=== PATIENT | female | born 1945 | race Caucasian/White ===

== ENCOUNTER 2022-07-15 16:34 | Observation (INO) | payer MEDICARE, SELFPAY ==
[2022-07-15] VITALS (23 sets, daily range): BP systolic 123–173; BP diastolic 75–99; PULSE 65–87; RESP 11–25; TEMP 36.5–36.8; O2SAT 97–99; BMI 30.4
--- NOTE | ~2022-07-15 | CT_ITS ---
EXAMINATION: CT brain wo con DATE: 07/15/2022 17:18 INDICATION: Slurred speech, moderate weakness, headache, dizziness and right leg and arm numbness. TECHNIQUE: Computed tomography (CT) of the head was performed without intravenous contrast. Sagittal and coronal reconstructions were performed. The mA was adjusted according to patient size. Iterative reconstruction technique was employed. The dose-length product was 605.33 mGy-cm. COMPARISON: head CT dated 06/01/2012 FINDINGS: No acute intracranial hemorrhage, acute infarction or abnormal extra axial fluid collection. Unchange d small old lacunar infarct at the right lentiform nucleus. Interval progression of now mild to moder ate scattered white matter hypoattenuation consistent with chronic small vessel ischemic disease. The re is also mild progression in symmetric prominence of the sulci consistent with mild age-appropriate diffuse cerebral volume loss. Ventricles are normal and symmetric. No mass/mass effect. Unchanged ch ronic likely adenoidal calcification at the midline of the posterior nasopharynx. The orbits, paranas al sinuses and mastoid air cells are normal. IMPRESSION: 1. No acute intracranial process. Dr. Vu discussed these findings with Dr. Garcia at 5:30 PM. 2. Small old lacunar infarct at the right lentiform nucleus. 3. Progression of age-related changes including mild diffuse on loss and now mild to moderate scatter ed white matter hypoattenuation consistent with chronic small vessel ischemic disease. Reviewed, dictated and finalized at location A. [facility] IMPRESSION: 1. No acute intracranial process. Dr. Vu discussed these findings with Dr Samra Garcia at 5:30 PM. 2. Small old lacunar infarct at the right lentiform nucleus. 3. Progression of age-related changes including mild diffuse on loss and now mi ld to moderate scattered white matter hypoattenuation consistent with chronic s mall vessel ischemic disease.
--- NOTE | ~2022-07-15 | MR_ITS ---
EXAMINATION: MR brain/brain stem wo/w con DATE: 07/16/2022 07:48 INDICATION: Transient ischemic attack. TECHNIQUE: Magnetic resonance imaging (MRI) of the brain and brainstem was performed without and with 15 mL MultiHance intravenous contrast. COMPARISON: Head CT 07/15/2022 FINDINGS: There is a punctate old microhemorrhage in the right thalamus. There are scattered areas of nonspecific increased T2-weighted signal intensity in the cerebral white matter and chad. There is n o acute ischemic infarct or abnormal mass lesion. The ventricles are normal in size. The paranasal si nuses are clear. The orbits are normal. The mastoid air cells are normal. IMPRESSION: 1. Moderate nonspecific cerebral white matter disease and pontine disease, which likely represents ch ronic small vessel ischemic disease. Reviewed, dictated and finalized at location A. [employer] IMPRESSION: 1. Moderate nonspecific cerebral white matter disease and pontine disease, whic h likely represents chronic small vessel ischemic disease.
--- NOTE | ~2022-07-15 | CT_ITS ---
EXAMINATION: CTA brain carotid DATE: 07/15/2022 18:20 INDICATION: R arm/leg numbness, vertigo, slurred speech TECHNIQUE: Computed tomographic angiography (CTA) of the head and neck was performed with 100 mL Omni paque-350 intravenous contrast. Automated exposure control and iterative reconstruction technique wer e employed. The dose-length product was 956.48 mGy-cm. Maximum intensity projection and volume render ed 3D-reconstructions were created by the technologist on a separate workstation. COMPARISON: CT brain, same date. FINDINGS: CT BRAIN: No acute large vessel infarct, intracranial hemorrhage, mass, or hydrocephalus. Short segment mild st enosis of the proximal basilar artery. Hypoplastic bilateral P1 segments, the majority of the posteri or flow comes from prominent bilateral posterior communicating arteries. CTA HEAD: No large vessel occlusion, aneurysm, high flow vascular malformation, nidus or extravasation. CTA NECK: Aortic arch and proximal great vessels: Mild atherosclerotic calcifications at the visualized aortic arch and proximal great vessels. Right common carotid, carotid bifurcation, and internal carotid artery: No significant plaque or sten osis.There is 0% stenosis of the proximal right internal carotid artery relative to normal distal art taylor lumen diameter (NASCET criteria). Left common carotid, carotid bifurcation, and internal carotid artery: No significant plaque or steno sis.There is 0% stenosis of the proximal left internal carotid artery relative to normal distal arter y lumen diameter (NASCET criteria). Vertebral arteries: No significant plaque or stenosis. Left vertebral artery is dominant. Other findings: Degenerative changes in the cervical spine. Senescent change and dependent atelectasi s in the upper lungs. IMPRESSION: 1. No large vessel occlusion. 2. No significant carotid or vertebral stenosis. Reviewed, dictated and finalized at location K. LOADER
--- NOTE | ~2022-07-15 | XR_ITS ---
EXAMINATION: XR chest 1V portable Exam Date/Time: 07/15/2022 17:50 DEBURRING AND TOOLING MACHINE OPERATOR HISTORY: INT SLURRED SPEECH, MOTOR WEAKNESS, NO CARDIAC HX Comparison: 03/20/2011. RESULT: Lines, tubes, and devices: None. Lungs and pleura: Mild diffuse reticular opacities. Right hemidiaphragm elevation. Cardiomediastinal silhouette: Stable. Other: No acute osseous or upper abdominal finding. IMPRESSION: Mild interstitial edema versus senescent change. Reviewed, dictated and finalized at location K. RRING AND TOOLING MACHINE OPERATOR
--- NOTE | 2022-07-15 17:07 | ECG_ITS ---
Measurements Intervals [place] Rate: 68 P: 73 MA: 151 QRS: 15 QRSD: 132 T: 8 QT: 385 QTc: 412 Interpretive Statements SINUS RHYTHM RIGHT BUNDLE BRANCH BLOCK CONSIDER INFERIOR INFARCT, AGE INDETERMINATE BASELINE ARTIFACT- I, II, AVR, AVL, AVF, V1 ABNORMAL ECG NO PREVIOUS ECG AVAILABLE FOR COMPARISON Electronically Signed On 07-15-2022 20:52:35 MYSQL DATABASE ADMINISTRATOR by Placido Nava D.O.
[2022-07-15 17:39] LABS: Glucose Point of Care 121 mg/dl (65-105)
[2022-07-15 17:43] LABS: Basophils Percent Auto 0.4 % (0.2-1.2); Eosinophils Absolute Auto 0.2 K/mm3 (0-0.3); Eosinophils Percent Auto 2.3 % (0-4.4); Hematocrit 39.7 % (37.0-47.0); Hemoglobin 13.1 g/dL (12.0-15.0); Immature Granulocyte Absolute 0.02 K/mm3 (0.00-0.031); Immature Granulocyte Percent A 0.3 % (0-0.5); Lymphocytes Absolute Auto 2.19 K/mm3 (0.9-3.2); Lymphocytes Percent Auto 31.2 % (18.3-44.2); Mean Corpuscular Hemoglobin 30.5 pg (26-34); Mean Corpuscular Volume 92.5 fl (80-100); Mean Platelet Volume 9.7 fl (7.4-10.4); Monocytes Absolute Auto 0.7 K/mm3 (0.1-0.6); Monocytes Percent Auto 9.3 % (2.6-8.5); Neutrophils Percent Auto 56.5 % (45.5-73.1); Platelet Count Result 274 k/mm3 (150-375); Red Blood Count 4.29 M/mm3 (4.2-5.4); Red Cell Distribution Width 13.1 % (11.5-14.5)
--- NOTE | 2022-07-15 17:49 | ED.NEUROSD ---
HPI - Neuro Symptoms/Deficit General Chief Complaint: Neuro Symptoms/Deficit Stated Complaint: INT SLURRED SPEECH AND EXT WEAKNESS TD Time Seen by Provider: 07/15/22 17:15 History of Present Illness HPI Narrative: Patient is a 76-year-old female with a history of GERD presenting with vertigo and right arm numbness. Patient states that she was out running errands when she developed severe vertigo associated with slurred speech. States that her right arm also felt heavy and weak at this time. This lasted for about a minute and then resolved. She was able to return to her errands but then she again had an episode of slurred speech with right arm and leg numbness and weakness. She was driving at this time and she was able to pull into a parking lot. States that this also resolved after about a minute. She called her family who told her to come to the ER for further evaluation. She states that she had another episode of vertigo here. She currently denies any complaints. States that she feels back to baseline. She denies any current numbness or weakness. No slurred speech. She denies any pain whatsoever. Related Data Home Medications Medication Instructions Recorded Confirmed esomeprazole magnesium 20 mg 20 mg PO DAILY 07/15/22 07/15/22 capsule,delayed release (Nexium) venlafaxine 75 mg capsule,extended 75 mg PO DAILY 07/16/22 07/16/22 release 24 hr Allergies Allergy/AdvReac Type Severity Reaction Status Date / Time albuterol Allergy Unknown Other Verified 07/15/22 17:49 Review of Systems Review of Systems: All systems reviewed & are unremarkable except as noted in HPI and below PMFSH Family History Family History Mother Hypertension Sibling Hypertension Family history of malignant neoplasm of ovary Father Family history of heart disease in male family member before age 55 Social History Social History Smoking status: Never smoker Second hand tobacco smoke exposure: No Alcohol intake: never Substance use: never Substance use type: does not use Lack of Transportation: No Lack of Food: Never True Current Housing: I Have Housing Concerned About Future Housing: No Difficulty Paying Gas/Electric Bills: No Difficulty Paying for Meds: No Currently Unemployed: No Education: High School Diploma/GED Difficulty w/ Childcare or Family Care: No Spiritual care concerns: No Exam Narrative: GENERAL: Well-appearing, well-nourished, and in no acute distress. HEAD: Normocephalic, atraumatic. EYES: PERRLA and EOMI. ENT: Nares clear, no rhinorrhea or epistaxis. Mucous membranes moist. NECK: Supple. CHEST: Clear to auscultation. No respiratory distress. HEART: Regular rate and rhythm. No murmur heard. Normal peripheral pulses. ABDOMEN: Soft, nontender, nondistended, normal active bowel sounds. EXTREMITIES: Normal range of motion. No edema. SKIN: Warm, dry, no rash. NEURO: No focal deficits. Alert and oriented x3. No pronator drift, [id number] intact, no facial droop, 5 out of 5 strength in all extremities, no sensory deficits PSYCH: Normal mood and affect. Course Vital Signs Vital signs: Vital Signs Temperature 98.2 F 07/15/22 16:57 Pulse Rate 87 07/15/22 16:57 Respiratory Rate 18 07/15/22 16:57 Blood Pressure 150/99 H 07/15/22 16:57 Pulse Oximetry 99 07/15/22 16:57 Oxygen Delivery Room Air 07/15/22 16:57 Temperature 96.7 F L 07/16/22 06:00 Pulse Rate 62 07/16/22 06:00 Respiratory Rate 18 07/16/22 06:00 Blood Pressure 154/89 H 07/16/22 06:00 Pulse Oximetry 96 07/16/22 11:02 Oxygen Delivery Room Air 07/16/22 11:02 MDM - Neuro Symptoms/Deficit MDM Narrative Medical decision making narrative: Patient is a 76-year-old female presenting with intermittent vertigo, right arm and leg numbness and weakness, slurred speech.
[2022-07-15 17:56] LABS: Prothrombin Time 12.6 Seconds (11.1-14.7)
[2022-07-15 17:57] LABS: Partial Thromboplastin Time 26.2 SECONDS (22.3-36.8)
[2022-07-15 17:59] LABS: Alanine Aminotransferase 20 U/L (6-35); Albumin Level 4.3 g/dL (3.5-5.1); Alkaline Phosphatase 80 U/L (38-126); Anion Gap 8 mmol/L (8-16); Aspartate Amino Transferase 26 U/L (14-36); Bilirubin,Total 0.4 mg/dL (0.2-1.3); Blood Urea Nitrogen 19 mg/dL (7-17); Calcium 8.8 mg/dL (8.4-10.2); Carbon Dioxide 25 mmol/L (22-30); Chloride 108 mmol/L (98-107); Estimated Glomerular Filt Rate > 60; Glucose 120 mg/dL (65-110); Potassium 3.9 mmol/L (3.4-5.0); Sodium 141 mmol/L (137-145)
[2022-07-15 18:12] LABS: Troponin I < 0.012 ng/mL (0.000-0.034)
[2022-07-15] MEDS: ASPIRIN 81 MG CHEWABLE TABLET 324 MG PO (18:19)
--- NOTE | 2022-07-15 19:30 | PC.NURSE ---
assumed care. pt sitting up on side of bed. denies any numbness/tingling at this time. pt A&Ox4 with no complaints.
[2022-07-15] MEDS: CLOPIDOGREL BISULFATE 75 MG TABLET PO (19:36)
--- NOTE | 2022-07-15 19:53 | PM.IMHP ---
H&P: HPI History of Present Illness Date/Time: 07/15/22 19:53 Chief Complaint: Speech disturbance Narrative: This is a 76-year-old female with known significant past medical history presents today to the emergency room after having episode of speech disturbance with right-sided hemibody weakness. Had 2 different episodes that lasted briefly and resolved on its own. Above-mentioned episodes happened while patient was driving. Patient has been in her usual state of health up until this moment denies any headaches, vision changes, fevers, rigors, chills, cough, sputum production, syncope, near syncope, dizziness, vertigo. Preliminary workup has been essentially nonrevealing. Blood pressure upon presentation to the emergency room was 142/86. Preliminary workup was significant for: CT of the head was reported as: FINDINGS: No acute intracranial hemorrhage, acute infarction or abnormal extra axial fluid collection. Unchanged small old lacunar infarct at the right lentiform nucleus. Interval progression of now mild to moderate scattered white matter hypoattenuation consistent with chronic small vessel ischemic disease. There is also mild progression in symmetric prominence of the sulci consistent with mild age-appropriate diffuse cerebral volume loss. Ventricles are normal and symmetric. No mass/mass effect. Unchanged chronic likely adenoidal calcification at the midline of the posterior nasopharynx. The orbits, paranasal sinuses and mastoid air cells are normal. IMPRESSION: 1. No acute intracranial process. Dr. Vu discussed these findings with Dr. Garcia at 5:30 PM. 2. Small old lacunar infarct at the right lentiform nucleus. 3. Progression of age-related changes including mild diffuse on loss and now mild to moderate scattered white matter hypoattenuation consistent with chronic small vessel ischemic disease. Chest x-ray was reported as: IMPRESSION: Mild interstitial edema versus senescent change. CT angiogram of head and neck was reported as: CT BRAIN: No acute large vessel infarct, intracranial hemorrhage, mass, or hydrocephalus. Short segment mild stenosis of the proximal basilar artery. Hypoplastic bilateral P1 segments, the majority of the posterior flow comes from prominent bilateral posterior communicating arteries. CTA HEAD: No large vessel occlusion, aneurysm, high flow vascular malformation, nidus or extravasation. CTA NECK: Aortic arch and proximal great vessels: Mild atherosclerotic calcifications at the visualized aortic arch and proximal great vessels. Right common carotid, carotid bifurcation, and internal carotid artery: No significant plaque or stenosis.There is 0% stenosis of the proximal right internal carotid artery relative to normal distal artery lumen diameter (NASCET criteria).? Left common carotid, carotid bifurcation, and internal carotid artery: No significant plaque or stenosis.There is 0% stenosis of the proximal left internal carotid artery relative to normal distal artery lumen diameter (NASCET criteria). Vertebral arteries: No significant plaque or stenosis. Left vertebral artery is dominant. Other findings: Degenerative changes in the cervical spine. Senescent change and dependent atelectasis in the upper lungs. IMPRESSION: 1. No large vessel occlusion. 2. No significant carotid or vertebral stenosis. Review of Systems Review of Systems: Speech disturbance right hemibody weakness Constitutional: Constitutional: Denies chills, Denies fever(s), Denies malaise, Denies night sweats, Denies poor appetite and Denies weakness Eyes: Eyes: Denies change in vision ENT: Denies dysphagia, Denies vertigo, Denies dizziness, Denies odynophagia and Denies disequilibrium Cardiovascular: Cardiovascular: Denies chest pain, Denies irregular heart rhythm, Denies leg edema, Denies lightheadedness and Denies palpitations Respiratory: Respiratory: Denies chest congestion, Denies cough and Denies dyspnea Gastro
[2022-07-15 20:04] LABS: Influenza A QL RT-PCR Negative (Negative); Influenza B QL RT-PCR Negative (Negative); RSV RNA, RT-PCR Negative (Negative); SARS-CoV-2 RNA PCR Negative
[2022-07-16] VITALS: PULSE 63
--- NOTE | 2022-07-16 | ECHO_ITS ---
Patient Info Name: Rambo Singh Age: 76 years : 1945 Gender: Female Ht: 62 in Wt: 166 lbs BSA: 1.84 m2 HR: 62 bpm BP: 154 / 89 mmHg Heart Rhythm: Sinus Rhythm Technical Quality: Fair Exam Date: 07/16/2022 8:53 AM Exam Location: [facility] Pulmonary Patient Status: Inpatient Admit Date: 07/15/2022 Staff Ordering Physician: Kayode Dawkins Retanned Leather Roller: Lexie Rivero RDCS Attending Provider: Teresita Trent MD Referring Physician: Juancho HASSAN; Exam Type: CA echo doppler w bubble study Study Info Indications - cva like symptoms Complete two-dimensional, color flow and Doppler transthoracic echocardiogram is performed with agitated saline. Contrast/Agitated Saline Contrast/Ag. Saline: Agitated Saline Amount: 20.00 ml Administered By: Lexie Rivero RDCS Existing IV Access: Yes IV Access Condition: patent with no signs of infiltration Summary 1. Left ventricular chamber dimension is normal. 2. Left ventricular systolic function is normal, estimated at 65-70%. 3. There is mildly increased left ventricular wall thickness. 4. The left ventricular diastolic function is grade I diastolic dysfunction. 5. E/e' 11 is mildly elevated. 6. There is mild aortic valve sclerosis. 7. There is trace aortic valve regurgitation. 8. There is trace tricuspid valve regurgitation. 9. No pulmonary hypertension, estimated pulmonary arterial systolic pressure is 25 mmHg. Left Ventricle E/e' 11 is mildly elevated. Left ventricular chamber dimension is normal. Left ventricular systolic function is normal, estimated at 65-70%. There is mildly increased left ventricular wall thickness. The left ventricular diastolic function is grade I diastolic dysfunction. Right Ventricle Right ventricular systolic function is normal and with normal TAPSE 2.2 cm. Right ventricular chamber dimension is normal. Left Atria Left atrial chamber dimension is normal. Right Atria Right atrial chamber dimension is normal. Atrial Septum Agitated saline injection with and without valsalva maneuver opacified right side cardiac chambers without shunt to left side cardiac chambers. Intact interatrial septum visualized by 2D and agitated saline imaging. Aortic Valve The aortic valve is trileaflet. There is mild aortic valve sclerosis. There is no aortic valve stenosis. There is trace aortic valve regurgitation. Pulmonic Valve There is no pulmonic regurgitation. Mitral Valve There is no mitral valve stenosis. There is no mitral valve regurgitation. Tricuspid Valve There is trace tricuspid valve regurgitation. No pulmonary hypertension, estimated pulmonary arterial systolic pressure is 25 mmHg. Pericardium/Pleural There is no pericardial effusion. Inferior Vena Cava Normal inferior vena cava with >50% collapse upon inspiration consistent with normal right atrial pressure, 5 mmHg. Aorta The aortic root size at the sinus of Valsalva is normal. Left Ventricular Outflow Tract Name Value Normal LVOT 2D LVOT Diameter 2.0 cm LVOT Doppler LVOT Pe
[2022-07-16 04:00] VITALS: PULSE 65
[2022-07-16 06:00] VITALS: BP 154/89; PULSE 62; RESP 18; TEMP 35.9; O2SAT 97
--- NOTE | 2022-07-16 08:29 | PM.IMPN ---
Progress Note: A&P Assessment and Plan (1) TIA (transient ischemic attack): Code(s): G45.9 - Transient cerebral ischemic attack, unspecified Status: Acute Assessment and Plan: Presented speech disturbance, right sided weakness, multiple episodes Head Ct No acute intracranial process, old infarct of the right lentiform nucleus, chronic small vessel disease CTA of the head and neck: 0% stenosis of the bilateral carotid bulb, no large vessel occlusion Brain MRI: no acute infarct, consistent small vessel disease Neurology consult Continue aspirin, Plavix, add statin Lipid panel Echo with bubble ordered PT/OT if indicated (2) Hypertension: Code(s): I10 - Essential (primary) hypertension Status: Acute Assessment and Plan: BP is 154/89 Continue amlodipine 5mg PO daily Trend BP adjust therapy as indicated Time Spent With Patient Time with patient: Greater than 35 minutes Subjective Date/time seen: 07/16/22 08:29 Interval history: 07/16/22 07/15/22 This is a 76-year-old female with known significant past medical history presents today to the emergency room after having episode of speech disturbance with right-sided hemibody weakness.? Had 2 different episodes that lasted briefly and resolved on its own.? Above-mentioned episodes happened while patient was driving.? Patient has been in her usual state of health up until this moment denies any headaches, vision changes, fevers, rigors, chills, cough, sputum production, syncope, near syncope, dizziness, vertigo.? Preliminary workup has been essentially nonrevealing.? Blood pressure upon presentation to the emergency room was 142/86. Review of Systems Review of Systems: All systems reviewed & are unremarkable except as noted in HPI and below Exam Narrative: General: well-nourished, well-appearing 76-year-old female, sitting up in bed, comfortable, NARD Neuro: awake, alert and oriented x4, speech clear, no focal neuro deficits noted HEENMT: normocephalic, atraumatic, EOMI, sclerae anicteric, moist oral mucosa Respiratory: Clear to auscultation bilaterally without crackles, rhonchi or wheezes, nonlabored breathing Cardio: regular rate, regular rhythm with S1-S2 Abdomen: nondistended, normoactive bowel sounds, soft, nontender to palpation Extremities: no edema, erythema, or tenderness to palpation, DP pulses 2+ bilaterally Skin: no rashes or lesions, warm and dry Psych: appropriate mood and affect, judgment and insight intact Objective Data Vital Signs Vital Signs: Vital Signs - 24 hr 07/15/22 16:57 07/15/22 17:24 07/15/22 17:34 Temperature 98.2 F Pulse Rate 87 76 Respiratory Rate 18 19 15 Blood Pressure 150/99 H Pulse Oximetry 99 Oxygen Delivery Room Air 07/15/22 17:36 07/15/22 17:40 07/15/22 17:37 Temperature Pulse Rate 75 80 77 Respiratory Rate 25 H 18 Blood Pressure 123/89 Pulse Oximetry Oxygen Delivery 07/15/22 17:45 07/15/22 17:46 07/15/22 18:00 Temperature Pulse Rate 78 82 70 Respiratory Rate 16 18 17 Blood Pressure 151/95 H Pulse Oximetry Oxygen Delivery 07/15/22 18:01 07/15/22 18:02 07/15/22 18:28 Temperature Pulse Rate 69 71 72 Respiratory Rate 11 L 12 14 Blood Pressure 142/86 H Pulse Oximetry Oxygen Delivery 07/15/22 18:32 07/15/22 18:45 07/15/22 18:46 Temperature Pulse Rate 75 68 71 Respiratory Rate 21 H 15 22 H Blood Pressure 170/91 H Pulse Oximetry Oxygen Delivery 07/15/22 20:45 07/15/22 18:47 07/15/22 19:00 Temperature Pulse Rate 65 68 70 Respiratory Rate 16 18 15 Blood Pressure 153/84 H Pulse Oximetry 97 Oxygen Delivery 07/15/22 19:01 07/15/22 19:22 07/15/22 20:17 Temperature Pulse Rate 70 71 Respiratory Rate 17 18 23 H Blood Pressure 164/75 H Pulse Oximetry Oxygen Delivery 07/15/22 20:31 07/15/22 22:00 07/16/22 00:00 Temperature 97.7 F Pu
--- NOTE | 2022-07-16 09:45 | PM.DS ---
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, chronic small vessel disease CTA of the head and neck: 0% stenosis of the bilateral carotid bulb, no large vessel occlusion Brain MRI: no acute infarct, consistent small vessel disease Neurology consult Continue aspirin, Plavix, add statin Lipid panel Echo with bubble ordered PT/OT if indicated (2) Hypertension: Code(s): I10 - Essential (primary) hypertension Status: Acute Assessment and Plan: BP is 154/89 Continue amlodipine 5mg PO daily Trend BP adjust therapy as indicated DS: Summary Hospital Course Hospital Course: Patient is 76-year-old female with a past medical history of GERD and menopause who presented to the ED with complaints of disrupted speech. Patient stated that she had to episodes that resolved within [address] of the head did show an old infarct however nothing acute. CTA showed 0% stenosis bilateral carotid arteries. MRI of the brain did not show any new infarcts however did show an old infarct. Neurology has been consulted. Patient states that she feels back to normal. Echo with bubble study showed Has an EF of 65-70% with grade 1 diastolic dysfunction. Bubble study did not indicate any shunt from my to left.. upon arrival it was noted the patient was hypertensive patient has been started on amlodipine. Patient also was noted to have some small vessel disease which symptoms are probably related to the hypertension. which is most likely related to stress. Patient is very active and does feel very good. Patient is wanting to go home. Patient has been started on Plavix, aspirin, atorvastatin. Patient will need to follow-up with neurology in about 4 Months. Education about discharge has been given to the patient including checking blood pressure twice a day and recording there findings and presented to primary care for further medication adjustments. Patient feels like she is at baseline. Telemetry did not show any changes, Ectopy, ST elevations. Patient stable for discharge per labs and vital signs. Also talked to the patient about diet control including not using salt or eating a lot of high fat diet. Status at Discharge Functional status at discharge: independent ambulation Overall status at discharge: patient is progressing back to baseline Time Spent with Patient Time attestation: Total time spent providing and/or coordinating discharge services: 38 minutes Time spent: Greater than 30 minutes Specific discharge activities: Diagnostic testing, chart review, developing a treatment plan, education, care coordination documentation, physical exam, result review Exam Narrative: General: well-nourished, well-appearing 76-year-old female, sitting up in bed, comfortable, NARD Neuro: awake, alert and oriented x4, speech clear, no focal neuro deficits noted HEENMT: normocephalic, atraumatic, EOMI, sclerae anicteric, moist oral mucosa Respiratory: Clear to auscultation bilaterally without crackles, rhonchi or wheezes, nonlabored breathing Cardio: regular rate, regular rhythm with S1-S2 Abdomen: nondistended, normoactive bowel sounds, soft, nontender to palpation Extremities: no edema, erythema, or tenderness to palpation, DP pulses 2+ bilaterally Skin: no rashes or lesions, warm and dry Psych: appropriate mood and affect, judgment and insight intact DS: Data Data Completed and Pending Labs on day of discharge: Labs from last 24 hours 07/16/22 07/15/22 07/15/22 09:31 19:23 17:37 WBC RBC Hgb
[2022-07-16 09:50] LABS: Cholesterol 260 mg/dL (0-200); HDL Direct 46 mg/dL; Triglycerides 175 mg/dL (<150)
[2022-07-16] MEDS: PANTOPRAZOLE 40 MG TABLET PO (09:51)
[2022-07-16] MEDS: ASPIRIN 81 MG CHEWABLE TABLET PO (09:51)
[2022-07-16] MEDS: CLOPIDOGREL BISULFATE 75 MG TABLET PO (09:51)
[2022-07-16] MEDS: amLODIPine BESYLATE 5 MG TABLET PO (09:51)
[2022-07-16] MEDS: ATORVASTATIN 40 MG TABLET PO (09:53)
[2022-07-16 10:01] LABS: LDL Cholesterol Direct 154 mg/dL
[2022-07-16 11:02] VITALS: O2SAT 96
--- NOTE | 2022-07-16 12:02 | WPDNEURCNPN ---
Assessment and Plan Assessment and plan (1) TIA (transient ischemic attack): Code(s): G45.9 - Transient cerebral ischemic attack, unspecified Status: Acute Plan 1. TIA patient is already on aspirin and Plavix and Plavix can be continued for 6 weeks and then discontinued and stay on aspirin all the pros and cons of the investigations were discussed with her and also with the family member on telephone she is a never smoker or drinker and she is taking atorvastatin 40 mg daily will continue a Consult date: 07/16/22 HPI: Rambo Singh is a 76 year old female admitted to the hospital through the emergency room where she presented with the complaints of slurred speech and extremity weakness in addition to the ongoing history of 1 GERD patient reported that she was out running errands when she developed severe vertigo associated with slurred speech her right upper extremity felt heavy and weak at that time which lasted for about a minute and then resolved she was able to return to her activities but she had another episode of slurred speech along with right upper extremity weakness and the right lower extremity numbness and weakness though at that particular time she was driving she was able to pull into parking lot this also resolved after a minute she called her family who suggested her to come to the emergency room for further evaluation she had another episode of vertigo but by the time she came to the ER was feeling back to normal she has been taking only [place] omeprazole 20 mg daily she is a never smoker she is a currently alcohol intake her initial examination in the emergency room was nonfocal with normal vital signs and blood pressure 150/99 pulse ox 99 on the room air, routine labs for normal seizure although G was negative for influenza a and B an RSV and stars, MRI of the brain documented nonspecific cerebral white matter disease and pontine disease on the basis of small vessel disease and had neck CTA was normal, patient had been started on aspirin 81 mg daily with clopidogrel 75 mg daily Review of Systems Review of Systems: All systems reviewed & are unremarkable except as noted in HPI and below PMFSH Family History Family History Mother Hypertension Sibling Hypertension Family history of malignant neoplasm of ovary Father Family history of heart disease in male family member before age 55 Social History Social History Smoking status: Never smoker Second hand tobacco smoke exposure: No Alcohol intake: never Substance use: never Substance use type: does not use Lack of Transportation: No Lack of Food: Never True Current Housing: I Have Housing Concerned About Future Housing: No Difficulty Paying Gas/Electric Bills: No Difficulty Paying for Meds: No Currently Unemployed: No Education: High School Diploma/GED Difficulty w/ Childcare or Family Care: No Spiritual care concerns: No Meds Home Medications and Allergies Home Medications Medication Instructions Recorded Confirmed Type esomeprazole magnesium 20 mg 20 mg PO DAILY 07/15/22 07/15/22 History capsule,delayed release (Nexium) venlafaxine 75 mg capsule,extended 75 mg PO DAILY 07/16/22 07/16/22 History release 24 hr Allergies Allergy/AdvReac Type Severity Reaction Status Date / Time albuterol Allergy Unknown Other Verified 07/15/22 17:49 Vital Signs Vital Signs - 24 hr 07/15/22 16:57 07/15/22 17:24 07/15/22 17:34 Temperature 36.8 C Pulse Rate 87 76 Respiratory Rate 18 19 15 Blood Pressure 150/99 H Pulse Oximetry 99 Oxygen Delivery Room Air 07/15/22 17:36 07/15/22 17:40 07/15/22 17:37 Temperature Pulse Rate 75 80 77 Respiratory Rate 25 H 18 Blood Pressure 123/89 Pulse Oximetry Oxygen Delivery 07/15/22 17:45 07/15/22 17:46 07/15/22 18:00 Temperature P
[2022-07-16] MEDS: VENLAFAXINE HCL XR 75 MG CAP.ER.24H PO (12:34)
== END 2022-07-16 13:45 | disposition home or self-care (01) ==
LOC: ANHED 17:30 → ANH3MEDSUR 21:33
PROVIDERS: Emergency Medicine; Nurse Practitioner; Admitting Provider Internal Medicine; Emergency Provider Emergency Medicine; PCP Internal Medicine; Visit Provider Chiropractor
DX: G45.9 Transient cerebral ischemic attack, unspecified (principal); I11.9 Hypertensive heart disease without heart failure; R42 Dizziness and giddiness; K21.9 Gastro-esophageal reflux disease without esophagitis; I45.10 Unspecified right bundle-branch block; I08.3 Combined rheumatic disorders of mitral, aortic and tricuspid valves; I27.20 Pulmonary hypertension, unspecified; R94.31 Abnormal electrocardiogram [ECG] [EKG]; R90.82 White matter disease, unspecified; Z20.822 Contact with and (suspected) exposure to COVID-19; Z86.73 Personal history of transient ischemic attack (TIA), and cerebral infarction without residual deficits; Z79.899 Other long term (current) drug therapy
CPT/HCPCS: 36415; 70450; 70496; 70498; 70553; 71045; 80053; 80061; 82948; 84484; 85025; 85610; 85730; 87637; 93005; 93306; 96375; 99285; A9270; A9577; G0378; Q9967

== ENCOUNTER 2022-11-28 17:39 | Emergency (ER) | payer MEDICARE, SELFPAY ==
--- NOTE | ~2022-11-28 | US_ITS ---
EXAMINATION: US venous doppler [facility] DATE: 11/28/2022 20:01 INDICATION: Lower limb edema. TECHNIQUE: Grayscale ultrasound images without and with compression and Doppler ultrasound images of the bilateral lower extremity veins were obtained. COMPARISON: None. FINDINGS: The visualized portions of right common femoral vein, profunda (deep) femoral vein, femoral vein, pop liteal vein, peroneal veins, posterior tibial veins, and greater saphenous vein outflow are patent. The visualized portions of left common femoral vein, profunda femoral vein, femoral vein, popliteal v ein, peroneal veins, posterior tibial veins, and greater saphenous vein outflow are patent. IMPRESSION: 1. No deep venous thrombosis. Reviewed, dictated and finalized at location E.
--- NOTE | ~2022-11-28 | XR_ITS ---
EXAMINATION: XR foot RT min 3V DATE: 11/28/2022 20:12 INDICATION: Lateral right foot pain. TECHNIQUE: 4 views of right foot were obtained. COMPARISON: None. FINDINGS: Bone alignment is normal. There are changes of bunionectomy. There are 2 screws in first me tatarsal and 1 screw in first proximal phalanx. There is heterotopic ossification adjacent to the bas e of first metatarsal. There is moderate osteoarthritis of first metatarsophalangeal joint and mild o steoarthritis of talonavicular joint and some of the interphalangeal joints. There are enthesophytes at the posterior and plantar aspects of calcaneal tuberosity. IMPRESSION: 1. 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 Reviewed, dictated and finalized at location E.
[2022-11-28 17:41] VITALS: BP 136/92; PULSE 78; RESP 18; TEMP 36.5; O2SAT 100
--- NOTE | 2022-11-28 19:37 | ED.EXTPRO ---
HPI - Extremity Problem General Chief complaint: Extremity Problem,Nontraumatic Stated complaint: R foot swelling Time Seen by Provider: 11/28/22 18:43 History of Present Illness HPI Narrative: 77-year-old female presented ED for evaluation of bilateral lower extremity swelling and right foot pain. Patient does have a prior history of TIA and is on Plavix and full dose aspirin. Patient has recently returned from [place] where she was doing a lot of walking. Patient called her primary care physician regarding her bilateral leg swelling and she was referred to the ED for DVT studies. Related Data Home Medications Medication Instructions Recorded Confirmed esomeprazole magnesium 20 mg 20 mg PO DAILY 07/15/22 07/15/22 capsule,delayed release (Nexium) venlafaxine 75 mg capsule,extended 75 mg PO DAILY 07/16/22 07/16/22 release 24 hr Allergies Allergy/AdvReac Type Severity Reaction Status Date / Time albuterol Allergy Unknown Other Verified 11/28/22 17:45 Review of Systems Review of Systems: All systems reviewed & are unremarkable except as noted in HPI and below PMFSH Family History Family History Mother Hypertension Sibling Hypertension Family history of malignant neoplasm of ovary Father Family history of heart disease in male family member before age 55 Social History Social History Smoking status: Never smoker Second hand tobacco smoke exposure: No Alcohol intake: never Substance use: never Substance use type: does not use Lack of Transportation: No Lack of Food: Never True Current Housing: I Have Housing Concerned About Future Housing: No Difficulty Paying Gas/Electric Bills: No Difficulty Paying for Meds: No Currently Unemployed: No Education: High School Diploma/GED Difficulty w/ Childcare or Family Care: No Spiritual care concerns: No Exam Narrative: APPEARANCE: Well appearing, no pain, no distress, well-nourished. HEAD: normocephalic, atraumatic. EYES: PERRLA/EOMI, conjunctivae clear. NOSE: Normal no drainage NECK: Supple. No adenopathy, no masses. RESPIRATORY: Airway patent, respirations nonlabored. Clear to auscultation bilaterally, no rales, rhonchi, wheezing. CARDIOVASCULAR: Regular rate and rhythm without murmurs rubs or gallops. ABDOMINAL: Soft, nontender, nondistended, normal bowel sounds MUSCULOSKELETAL: Moves all extremities. Bilateral lower extremity edema worse on right than left, tenderness to right lateral foot, no ecchymosis or deformity NEURO: Alert. Cranial nerves II through XII intact. Grossly intact SKIN: Warm, dry. Normal Color Course Course Emergency Course: 77-year-old female with bilateral lower extremity pain and right foot pain. X-ray was ordered to evaluate for acute fracture and bilateral ultrasound/DVT studies were ordered. Patient was updated on the plan for work-up. All questions and concerns were addressed. Patient did not have any point tenderness at the site of the avulsion fracture/chronic finding. Patient was updated on results of the ultrasound showing no DVTs. Patient was encouraged to have close follow-up with her primary care physician Vital Signs Vital signs: Vital Signs Temperature 97.7 F 11/28/22 17:41 Pulse Rate 78 11/28/22 17:41 Respiratory Rate 18 11/28/22 17:41 Blood Pressure 136/92 H 11/28/22 17:41 Pulse Oximetry 100 11/28/22 17:41 Oxygen Delivery Room Air 11/28/22 17:41 Temperature 97.7 F 11/28/22 17:41 Pulse Rate 78 11/28/22 17:41 Respiratory Rate 18 11/28/22 17:41 Blood Pressure 136/92 H 11/28/22 17:41 Pulse Oximetry 100 11/28/22 17:41 Oxygen Delivery Room Air 11/28/22 17:41 MDM - Extremity (Nontraumatic) Imaging Data Radiologist's impression: Impressions Venous Doppler Study 11/28/22 20:03 IMPRESSION: 1. No deep venous throm
== END 2022-11-28 21:13 | disposition home or self-care (01) ==
PROVIDERS: Emergency Provider Emergency Medicine; PCP Internal Medicine
DX: R22.43 Localized swelling, mass and lump, lower limb, bilateral (principal); Z86.73 Personal history of transient ischemic attack (TIA), and cerebral infarction without residual deficits; Z79.82 Long term (current) use of aspirin; Z79.02 Long term (current) use of antithrombotics/antiplatelets
CPT/HCPCS: 73630; 93970; 99284

== ENCOUNTER 2023-03-05 15:15 | Outpatient (CLI) | payer MEDICARE, SELFPAY ==
[2023-03-05 15:47] LABS: Basophils Absolute Auto 0.04 K/mm3 (0.00-0.10); Basophils Percent Auto 0.5 % (0.0-1.0); Eosinophils Percent Auto 2.4 % (1.0-6.0); Hematocrit 37.3 % (35.0-42.0); Hemoglobin 12.1 g/dL (11.7-13.8); Immature Granulocyte Absolute 0.02 K/mm3 (0.00-0.00); Immature Granulocyte Percent A 0.2 % (0.0-0.0); Lymphocytes Absolute Auto 4.62 K/mm3 (1.10-4.50); Lymphocytes Percent Auto 55.9 % (18.0-42.0); Mean Corpuscular HGB Conc 32.4 g/dL (32.0-36.0); Mean Corpuscular Hemoglobin 30.4 pg (27.0-31.0); Mean Corpuscular Volume 93.7 fL (78.0-102.0); Mean Platelet Volume 9.8 fl (9.2-11.8); Monocytes Absolute Auto 0.69 K/mm3 (0.10-0.90); Monocytes Percent Auto 8.4 % (2.0-11.0); Neutrophils Absolute Auto 2.7 K/mm3 (1.7-7.2); Neutrophils Percent Auto 32.6 % (50.0-70.0); Platelet Count Result 344 K/mm3 (150-420); Red Blood Count 3.98 M/mm3 (4.20-5.40); Red Cell Distribution Width 13.1 % (11.6-14.4); White Blood Count 8.3 K/mm3 (4.8-10.8)
[2023-03-05 16:48] LABS: Alanine Aminotransferase 73 U/L (14-59); Albumin Level 3.5 g/dL (3.4-5.0); Alkaline Phosphatase 163 U/L (46-116); Anion Gap 8 mmol/L (8-16); Aspartate Amino Transferase 43 U/L (15-37); Bilirubin,Total 0.3 mg/dL (0.00-1.00); Blood Urea Nitrogen 22 mg/dL (7-18); Calcium 9.2 mg/dL (8.5-10.1); Carbon Dioxide 30 mmol/L (21-32); Chloride 107 mmol/L (98-108); Estimated Glomerular Filt Rate > 60; Free T4 Free Thyroxine 1.08 ng/dL (0.76-1.46); Glucose 103 mg/dL (70-99); Osmolality Calculated 303 mOsm/kg (285-295); Potassium 4.4 mmol/L (3.5-5.1); Sodium 145 mmol/L (136-145); Thyroid Stimulating Hormone 1.44 uIU/mL (0.36-3.74); Total Protein 7.2 g/dL (6.4-8.2)
[2023-03-06 09:20] LABS: CRP 0.9 mg/dL (0.0-0.9)
[2023-03-06 09:23] LABS: Monoscreen Positive (Negative); Negative Monotest Control Negative (Negative); Positive Monotest Control Positive (Positive)
[2023-03-11 19:31] LABS: Hepatitis A Antibody IgM Nonreactive; Hepatitis B Core Antibody Nonreactive (Nonreactive); Hepatitis B Surface Antigen Nonreactive (Nonreactive); Hepatitis C Virus Antibody Nonreactive
== END 2023-03-05 15:16 | disposition home or self-care (01) ==
LOC: CHSLAB 15:17
PROVIDERS: PCP Internal Medicine; Visit Provider Nurse Practitioner Family
DX: R07.0 Pain in throat (principal); R74.01 Elevation of levels of liver transaminase levels; R79.9 Abnormal finding of blood chemistry, unspecified; R22.1 Localized swelling, mass and lump, neck; R94.5 Abnormal results of liver function studies
CPT/HCPCS: 36415; 80053; 80074; 84439; 84443; 85025; 86140; 86308

== ENCOUNTER 2023-04-03 12:01 | Outpatient (CLI) | payer MEDICARE, SELFPAY ==
[2023-04-03 12:47] LABS: Basophils Absolute Auto 0.03 K/mm3 (0.00-0.10); Basophils Percent Auto 0.4 % (0.0-1.0); Eosinophils Absolute Auto 0.22 K/mm3 (0.02-0.50); Hematocrit 37.1 % (35.0-42.0); Hemoglobin 12.1 g/dL (11.7-13.8); Immature Granulocyte Absolute 0.02 K/mm3 (0.00-0.00); Immature Granulocyte Percent A 0.3 % (0.0-0.0); Lymphocytes Absolute Auto 2.69 K/mm3 (1.10-4.50); Lymphocytes Percent Auto 37.3 % (18.0-42.0); Mean Corpuscular HGB Conc 32.6 g/dL (32.0-36.0); Mean Corpuscular Hemoglobin 30.3 pg (27.0-31.0); Mean Corpuscular Volume 92.8 fL (78.0-102.0); Monocytes Absolute Auto 0.55 K/mm3 (0.10-0.90); Monocytes Percent Auto 7.6 % (2.0-11.0); Neutrophils Absolute Auto 3.7 K/mm3 (1.7-7.2); Neutrophils Percent Auto 51.4 % (50.0-70.0); Platelet Count Result 302 K/mm3 (150-420); White Blood Count 7.2 K/mm3 (4.8-10.8)
[2023-04-03 14:48] LABS: Alanine Aminotransferase 12 U/L (14-59); Albumin Level 3.5 g/dL (3.4-5.0); Alkaline Phosphatase 104 U/L (46-116); Anion Gap 11 mmol/L (8-16); Aspartate Amino Transferase 18 U/L (15-37); Bilirubin,Total 0.3 mg/dL (0.00-1.00); Blood Urea Nitrogen 16 mg/dL (7-18); Carbon Dioxide 26 mmol/L (21-32); Chloride 109 mmol/L (98-108); Estimated Glomerular Filt Rate > 60; Glucose 79 mg/dL (70-99); Osmolality Calculated 302 mOsm/kg (285-295); Potassium 4.3 mmol/L (3.5-5.1); Sodium 146 mmol/L (136-145); Total Protein 6.4 g/dL (6.4-8.2)
== END 2023-04-03 12:02 | disposition home or self-care (01) ==
LOC: CHSLAB 12:06
PROVIDERS: PCP Internal Medicine; Visit Provider Nurse Practitioner Family
DX: B27.90 Infectious mononucleosis, unspecified without complication (principal); R74.01 Elevation of levels of liver transaminase levels
CPT/HCPCS: 36415; 80053; 85025

== ENCOUNTER 2023-10-21 08:54 | Inpatient (IN) | payer MEDICARE, SELFPAY ==
[2023-10-21 09:05] VITALS: BP 139/102; PULSE 102; RESP 18; TEMP 37.4; O2SAT 98
--- NOTE | 2023-10-21 09:07 | ED.ANIMALBIT ---
HPI - Animal Bite General Chief Complaint: Animal Bite <Luis Manuel Cosby APRN - Last Filed: 10/21/23 11:03> Stated Complaint: bite/scratch by stray cat <Luis Manuel Cosby APRN - Last Filed: 10/21/23 11:03> Time Seen by Provider: 10/21/23 08:59 <Luis Manuel Cosby APRN - Last Filed: 10/21/23 11:03> Source: patient <Luis Manuel Cosby APRN - Last Filed: 10/21/23 11:03> Mode of arrival: ambulatory <Luis Manuel Cosby APRN - Last Filed: 10/21/23 11:03> Limitations: no limitations <Luis Manuel Cosby APRN - Last Filed: 10/21/23 11:03> History of Present Illness HPI narrative: Rambo is a 78-year-old female patient presenting to the emergency room today with complaints of a cat bite/scratch to her right forearm and wrist. She reports this occurred yesterday afternoon. States last night it began to swell become red and now today she noticed streaking up her forearm. States the forearm is very painful. Temperature is 99.3? F in the ER today. She denies any body aches or chills. States this is her own 13 year old cat that bit her/scratched her. Cat bite was provoked as the patient states she was trying to take a cocabur out of the cats foot. Tetanus status is unknown. <Luis Manuel Cosby APRN - Last Filed: 10/21/23 11:03> Related Data Home Medications: Home Medications Medication Instructions Recorded Confirmed esomeprazole magnesium 20 mg 20 mg PO DAILY 07/15/22 10/21/23 capsule,delayed release (Nexium) venlafaxine 75 mg capsule,extended 75 mg PO DAILY 07/16/22 10/21/23 release 24 hr <Luis Manuel Cosby APRN - Last Filed: 10/21/23 11:03> Allergies/Adverse Reactions: Allergies Allergy/AdvReac Type Severity Reaction Status Date / Time albuterol AdvReac Unknown Nausea and Verified 10/21/23 15:27 Vomiting <Luis Manuel Cosby APRN - Last Filed: 10/21/23 11:03> Review of Systems Review of Systems: Pertinent positives per HPI. Patient denies any fever, chills, rash, headache, visual changes, dizziness, cough, runny nose, sore throat, shortness of breath, chest pain, palpitations, nausea, vomiting, diarrhea, constipation, abdominal pain, or any urinary issues. <Luis Manuel Cosby APRN - Last Filed: 10/21/23 11:03> [facility] Past Medical History Medical History: Medical History (Updated 10/21/23 @ 15:46 by Celine Reis PA-C) Gastroesophageal reflux disease Hyperlipidemia Hypertension Transient ischemic attack (07/2022) <Luis Manuel Cosby APRN - Last Filed: 10/21/23 11:03> Family History Family History: Family History Mother Hypertension Sibling Hypertension Family history of malignant neoplasm of ovary Father Family history of heart disease in male family member before age 55 <Luis Manuel Cosby APRN - Last Filed: 10/21/23 11:03> Social History Social History: Social History (Updated 10/21/23 @ 15:46 by Celine Reis PA-C) Social History: Surrogate medical decision maker: Rishabh Singh, jani. Code status: Full code. Smoking status: Never smoker Second hand tobacco smoke exposure: No Alcohol intake: never Substance use: never Substance use type: does not use Do You Feel Safe in your Home?: Yes Lack of Transportation: No Lack of Food: Never True Current Housing: I Have Housing Concerned About Future Housing: No Difficulty Paying Gas/Electric Bills: No Difficulty Paying for Meds: No Currently Unemployed: No Education: Decline to Answer Difficulty w/ Childcare or Family Care: No Spiritual care concerns: No <Luis Manuel Cosby APRN - Last Filed: 10/21/23 11:03> Comments At the time of my signature, I reviewed and agree with the nursing past medical, surgical, social, and family history. There is no relevant family history pertinent to the patient complaint. <Luis Manuel Cosby APRN - Last Filed: 10/21/23
[2023-10-21 09:31] LABS: Basophils Percent Auto 0.2 % (0.2-1.2); Eosinophils Absolute Auto 0.2 K/mm3 (0-0.3); Eosinophils Percent Auto 1.3 % (0-4.4); Hemoglobin 13.5 g/dL (12.0-15.0); Immature Granulocyte Absolute 0.08 K/mm3 (0.00-0.031); Immature Granulocyte Percent A 0.5 % (0-0.5); Lymphocytes Absolute Auto 1.62 K/mm3 (0.9-3.2); Lymphocytes Percent Auto 9.3 % (18.3-44.2); Mean Corpuscular HGB Conc 32.9 g/dl (32-36); Mean Corpuscular Hemoglobin 30.8 pg (26-34); Mean Corpuscular Volume 93.6 fl (80-100); Mean Platelet Volume 10.1 fl (7.4-10.4); Monocytes Absolute Auto 1.2 K/mm3 (0.1-0.6); Neutrophils Absolute Auto 14.3 K/mm3 (1.3-6.7); Neutrophils Percent Auto 81.7 % (45.5-73.1); Platelet Count Result 313 k/mm3 (150-375); Red Blood Count 4.38 M/mm3 (4.2-5.4); White Blood Count 17.5 K/mm3 (4.5-10.0)
[2023-10-21] MEDS: PIPERACILLN/TAZ 3.375GM/NS50ML 3.375 GM/50 ML BAG IVPB ×2 (09:36→14:27)
[2023-10-21 09:40] LABS: Lactic Acid Reflex 1.6 mmol/L (0.7-2.0)
[2023-10-21 09:41] LABS: Alanine Aminotransferase 21 U/L (6-35); Albumin Level 4.5 g/dL (3.5-5.1); Alkaline Phosphatase 93 U/L (38-126); Anion Gap 9 mmol/L (4-12); Aspartate Amino Transferase 26 U/L (14-36); Bilirubin,Total 0.6 mg/dL (0.2-1.3); Blood Urea Nitrogen 22 mg/dL (7-17); Calcium 9.5 mg/dL (8.4-10.2); Carbon Dioxide 24 mmol/L (22-30); Chloride 106 mmol/L (98-107); Estimated CRCL calculation 56 ml/min; Estimated Glomerular Filt Rate > 60; Glucose 112 mg/dL (65-110); Potassium 4.4 mmol/L (3.4-5.0); Sodium 139 mmol/L (137-145)
[2023-10-21] MEDS: TETANUS,DIPHTHERIA,AC PERTUSSIS ADULT (0.5 ML) BOOSTRIX IM (09:45)
[2023-10-21] MEDS: SODIUM CHLORIDE 0.9% IV 1,000 ML 125 ML IV CONT ×2 (10:30→20:45)
[2023-10-21 10:34] VITALS: BP 161/89; PULSE 96; RESP 18; TEMP 37.3; O2SAT 98
[2023-10-21 11:14] VITALS: BMI 30.1
--- NOTE | 2023-10-21 11:20 | PC.NURSE ---
This patient, Rambo Singh, was admitted to 3 [facility] Surg Room 324-01 @ 11:00. Patient/family oriented to hospital policies and general routines including ID bracelet, bed and alarms, visiting hours, pain management, procedures, bathroom and other care routines, personal items, smoking policy, room service/diet, and visiting hours. Information on how to activate the Rapid Response Team has been discussed. Patient/Family are encouraged to report perceived risks to care and to ask questions if they do not understand what they are told or what they should do.
[2023-10-21] MEDS: oxyCODONE/ACETAMINOPHEN (*CRX) 5-325 MG TABLET 1 TABLET PO ×2 (13:45→20:55)
[2023-10-21 14:00] VITALS: BP 167/81; PULSE 96; RESP 17; TEMP 37.7; O2SAT 98
--- NOTE | 2023-10-21 15:37 | PM.IMHP ---
H&P: HPI History of Present Illness Date/Time: 10/21/23 15:30 Chief Complaint: Cat bite. Narrative: This is a pleasant 78-year-old female with history of transient ischemic attack, hypertension, and gastroesophageal reflux disease who presented to the emergency department for evaluation of a cat bite. The patient provides the following history. Yesterday afternoon she was trying to remove cockleburs from her cats fur when the cat became agitated and bit/scratch her right forearm. Last night the area around the bite began to swell and this morning she had increasing swelling and redness with streaking up the forearm. She denies chills, sweats, nausea, and vomiting. She has not noticed any drainage from the wounds and denies paresthesias of the hand. Temperature on arrival to the ED was 99.3? F and her WBC count was 17.5. She was given a tetanus shot and a dose of Zosyn and she is being admitted in this setting for IV antibiotics. Review of Systems Review of Systems: 12 systems were reviewed and are negative except for as per HPI. [facility] Past Medical History Medical History (Updated 10/21/23 @ 15:46 by Celine Reis PA-C) Gastroesophageal reflux disease Hyperlipidemia Hypertension Transient ischemic attack (07/2022) Surgical History Surgical History (Updated 10/21/23 @ 22:29 by Celine Reis PA-C) History of bilateral knee arthroplasty History of hysterectomy Family History Family History Mother Hypertension Sibling Hypertension Family history of malignant neoplasm of ovary Father Family history of heart disease in male family member before age 55 Social History Social History (Updated 10/21/23 @ 15:46 by Celine Reis PA-C) Social History: Surrogate medical decision maker: Rishabh Singh, jani. Code status: Full code. Smoking status: Never smoker Second hand tobacco smoke exposure: No Alcohol intake: never Substance use: never Substance use type: does not use Do You Feel Safe in your Home?: Yes Lack of Transportation: No Lack of Food: Never True Current Housing: I Have Housing Concerned About Future Housing: No Difficulty Paying Gas/Electric Bills: No Difficulty Paying for Meds: No Currently Unemployed: No Education: Decline to Answer Difficulty w/ Childcare or Family Care: No Spiritual care concerns: No Meds Home Medications and Allergies Home Medications Medication Instructions Recorded Confirmed Type esomeprazole magnesium 20 mg 20 mg PO DAILY 07/15/22 10/21/23 History capsule,delayed release (Nexium) amlodipine 5 mg tablet (Norvasc) 5 mg PO QAM #30 tabs 07/16/22 10/21/23 Rx aspirin 81 mg chewable tablet 81 mg PO DAILY@0800 #30 tabs 07/16/22 10/21/23 Rx (Children's Aspirin) clopidogrel 75 mg tablet 75 mg PO QAM #45 tabs 07/16/22 10/21/23 Rx venlafaxine 75 mg capsule,extended 75 mg PO DAILY 07/16/22 10/21/23 History release 24 hr atorvastatin 40 mg tablet 40 mg PO HS 10/21/23 10/21/23 History Allergies Allergy/AdvReac Type Severity Reaction Status Date / Time albuterol AdvReac Unknown Nausea and Verified 10/21/23 15:27 Vomiting Vital Signs Vital Signs - 24 hr 10/21/23 09:05 10/21/23 10:34 10/21/23 11:01 Temperature 99.3 F 99.2 F Pulse Rate 102 H 96 Respiratory Rate 18 18 Blood Pressure 139/102 H 161/89 H Pulse Oximetry 98 98 Oxygen Delivery Room Air Room Air Exam Narrative: General: Mildly ill-appearing female in the semi-Velázquez position in bed. Weight: 74.8 kg. BMI: 30.2. HEENT: Normocephalic, atraumatic. PERRL, EOMI. Sclera anicteric. Oral mucosa moist. Neck: Supple. Respiratory: Lungs are clear to auscultation bilaterally. Cardiovascular: Regular rate and rhythm with S1-S2. Gastrointestinal: Abdomen is soft, nontender, and nondistended with positive bowel sounds. Skin: Warm and dry. Cat bite/scratch on the volar aspect
[2023-10-21] MEDS: traMADol HCL (*CRX) 50 MG TABLET PO (16:17)
[2023-10-21] MEDS: AMPICILLIN SULB 3 GM/NS 100 ML 3 GM/100 ML VIAL IVPB (16:18)
[2023-10-21 21:55] VITALS: BP 124/60; PULSE 85; RESP 18; TEMP 37.7; O2SAT 94
[2023-10-22] MEDS: AMPICILLIN SULB 3 GM/NS 100 ML 3 GM/100 ML VIAL IVPB ×3 (00:04→11:56)
[2023-10-22] MEDS: oxyCODONE/ACETAMINOPHEN (*CRX) 5-325 MG TABLET 1 TABLET PO ×3 (05:37→23:28)
[2023-10-22] MEDS: SODIUM CHLORIDE 0.9% IV 1,000 ML 125 ML IV CONT ×2 (05:37→15:58)
[2023-10-22 06:00] VITALS: BP 119/74; PULSE 82; RESP 18; TEMP 37; O2SAT 93
[2023-10-22 06:18] LABS: Hematocrit 34.6 % (37.0-47.0); Hemoglobin 11.3 g/dL (12.0-15.0); Mean Corpuscular HGB Conc 32.7 g/dl (32-36); Mean Corpuscular Hemoglobin 31.3 pg (26-34); Mean Corpuscular Volume 95.8 fl (80-100); Mean Platelet Volume 10.1 fl (7.4-10.4); Platelet Count Result 238 k/mm3 (150-375); Red Blood Count 3.61 M/mm3 (4.2-5.4)
[2023-10-22 06:41] LABS: Anion Gap 5 mmol/L (4-12); Blood Urea Nitrogen 17 mg/dL (7-17); Calcium 8.1 mg/dL (8.4-10.2); Carbon Dioxide 22 mmol/L (22-30); Chloride 109 mmol/L (98-107); Estimated CRCL calculation 65 ml/min; Estimated Glomerular Filt Rate > 60; Glucose 125 mg/dL (65-110); Potassium 3.9 mmol/L (3.4-5.0); Sodium 136 mmol/L (137-145)
[2023-10-22] MEDS: ASPIRIN 81 MG CHEWABLE TABLET PO (08:28)
[2023-10-22] MEDS: VENLAFAXINE HCL XR 75 MG CAP.ER.24H PO (08:30)
[2023-10-22] MEDS: PANTOPRAZOLE 40 MG TABLET PO (08:30)
[2023-10-22] MEDS: amLODIPine BESYLATE 5 MG TABLET PO (08:31)
[2023-10-22 08:38] VITALS: O2SAT 94
--- NOTE | 2023-10-22 09:31 | PM.IMPN ---
Progress Note: A&P Assessment and Plan (1) Cellulitis of right forearm: Code(s): L03.113 - Cellulitis of right upper limb Status: Acute (2) Cat bite of right forearm with infection: Qualifiers: Encounter type: initial encounter Qualified Code(s): S51.851A - Open bite of right forearm, initial encounter; L08.9 - Local infection of the skin and subcutaneous tissue, unspecified; W55.01XA - Bitten by cat, initial encounter Code(s): S51.851A - Open bite of right forearm, initial encounter; L08.9 - Local infection of the skin and subcutaneous tissue, unspecified; W55.01XA - Bitten by cat, initial encounter Status: Acute (3) Cat scratch of right forearm with infection: Qualifiers: Encounter type: initial encounter Qualified Code(s): S50.811A - Abrasion of right forearm, initial encounter; L08.9 - Local infection of the skin and subcutaneous tissue, unspecified; W55.03XA - Scratched by cat, initial encounter Code(s): S50.811A - Abrasion of right forearm, initial encounter; L08.9 - Local infection of the skin and subcutaneous tissue, unspecified; W55.03XA - Scratched by cat, initial encounter Status: Acute (4) Hypertension: Code(s): I10 - Essential (primary) hypertension Status: Acute (5) Hyperlipidemia: Code(s): E78.5 - Hyperlipidemia, unspecified Status: Acute (6) Gastroesophageal reflux disease: Code(s): K21.9 - Gastro-esophageal reflux disease without esophagitis Status: Acute Plan The patient presented to the emergency department for evaluation of redness and swelling about a cat scratch/bite as detailed in HPI. Labs, imaging, EKG, and all reports were personally reviewed. She has been started on Unasyn and was encouraged to elevate the extremity frequently. Wound will be monitored daily for improvement. Blood pressures were reviewed and they have been running a bit high, likely due to pain. Analgesics are available as needed and blood pressures will be monitored closely. Her home medications will be reviewed and resumed as appropriate. Findings and treatment plan were discussed with the patient. 10/21: patient feels pain is removing, but still has restricted movement of the wrist because of pain, patient low-grade fever leukocytosis getting worse to 24,000 and patient was on Zosyn initially, changed to ampicillin IV. 01/19 will change back to zosyn and add clindamycin IV, follow-up procalcitonin Subjective Date/time seen: 10/22/23 09:31 Interval history: I saw exam patient today, patient still has pain of the right wrist and right arm, and some restriction of the right wrist because of pain. patient has low-grade fever over the night, blood pressure stable, white blood cell [id number] Exam Narrative: GENERAL: Pleasant, in no acute distress. Well-nourished. - EYES: EOMI. Anicteric. - HENT: Moist mucous membranes. - LUNGS: Clear to auscultation bilaterally, no wheezing, rhonchi, or rales. - CARDIOVASCULAR: Regular rate and rhythm. No murmur. No JVD. - ABDOMEN: Soft, non-tender and non-distended. No palpable masses. - EXTREMITIES: No edema. Peripheral pulses 2+. Non-tender. - NEUROLOGIC: No focal neurological deficits. CN II-XII grossly intact. - PSYCHIATRIC: Awake, Alert and oriented x 3. Appropriate mood and affect. - SKIN: redness, tender, swelling of right arm from the right wrist above - LYMPH: No cervical lymphadenopathy. Objective Data Vital Signs Vital Signs: Vital Signs - 24 hr 10/21/23 10:34 10/21/23 11:01 10/21/23 14:00 Temperature 99.2 F 99.8 F H Pulse Rate 96 96 Respiratory Rate 18 17 Blood Pressure 161/89 H 167/81 H Pulse Oximetry 98 98 Oxygen Delivery Room Air Fraction of Inspired Oxygen 10/21/23 21:55 10/22/23 06:00 10/22/23 08:38 Temperature 99.9 F H 98.6 F Pulse Rate 85 82 Respiratory Rate 18 18 Blood Pressure 124/60 119/74 Pulse Oximetry 94 93 94 Oxygen Delivery Room A
[2023-10-22 13:56] VITALS: BP 133/63; PULSE 83; RESP 18; TEMP 37.4; O2SAT 95
[2023-10-22] MEDS: CLINDAMYCIN 900 MG/D5W 50 ML 900 MG/50 ML PIGGYBACK 50 MG IVPB (16:17)
[2023-10-22] MEDS: PIPERACILLN/TAZ 3.375GM/NS50ML 3.375 GM/50 ML BAG IVPB ×2 (17:09→23:07)
[2023-10-22] MEDS: traMADol HCL (*CRX) 50 MG TABLET PO (20:27)
[2023-10-22 21:23] LABS: Procalcitonin 0.9 ng/mL
[2023-10-22 21:59] VITALS: BP 130/72; PULSE 78; RESP 14; TEMP 36.9; O2SAT 91
[2023-10-23] MEDS: CLINDAMYCIN 900 MG/D5W 50 ML 900 MG/50 ML PIGGYBACK 50 MG IVPB ×2 (00:50→08:47)
[2023-10-23] MEDS: SODIUM CHLORIDE 0.9% IV 1,000 ML 125 ML IV CONT ×2 (02:10→17:29)
[2023-10-23 05:49] VITALS: BP 129/67; PULSE 73; RESP 12; TEMP 36.5; O2SAT 91
[2023-10-23] MEDS: PIPERACILLN/TAZ 3.375GM/NS50ML 3.375 GM/50 ML BAG IVPB ×3 (06:03→17:32)
--- NOTE | 2023-10-23 08:17 | PM.IMPN ---
Progress Note: A&P Assessment and Plan (1) Cellulitis of right forearm: Code(s): L03.113 - Cellulitis of right upper limb Status: Acute (2) Cat bite of right forearm with infection: Qualifiers: Encounter type: initial encounter Qualified Code(s): S51.851A - Open bite of right forearm, initial encounter; L08.9 - Local infection of the skin and subcutaneous tissue, unspecified; W55.01XA - Bitten by cat, initial encounter Code(s): S51.851A - Open bite of right forearm, initial encounter; L08.9 - Local infection of the skin and subcutaneous tissue, unspecified; W55.01XA - Bitten by cat, initial encounter Status: Acute (3) Cat scratch of right forearm with infection: Qualifiers: Encounter type: initial encounter Qualified Code(s): S50.811A - Abrasion of right forearm, initial encounter; L08.9 - Local infection of the skin and subcutaneous tissue, unspecified; W55.03XA - Scratched by cat, initial encounter Code(s): S50.811A - Abrasion of right forearm, initial encounter; L08.9 - Local infection of the skin and subcutaneous tissue, unspecified; W55.03XA - Scratched by cat, initial encounter Status: Acute (4) Hypertension: Code(s): I10 - Essential (primary) hypertension Status: Acute (5) Hyperlipidemia: Code(s): E78.5 - Hyperlipidemia, unspecified Status: Acute (6) Gastroesophageal reflux disease: Code(s): K21.9 - Gastro-esophageal reflux disease without esophagitis Status: Acute Plan The patient presented to the emergency department for evaluation of redness and swelling about a cat scratch/bite as detailed in HPI. Labs, imaging, EKG, and all reports were personally reviewed. She has been started on Unasyn and was encouraged to elevate the extremity frequently. Wound will be monitored daily for improvement. Blood pressures were reviewed and they have been running a bit high, likely due to pain. Analgesics are available as needed and blood pressures will be monitored closely. Her home medications will be reviewed and resumed as appropriate. Findings and treatment plan were discussed with the patient. 10/21: patient feels pain is removing, but still has restricted movement of the wrist because of pain, patient low-grade fever leukocytosis getting worse to 24,000 and patient was on Zosyn initially, changed to ampicillin IV. 01/19 will change back to zosyn and add clindamycin IV, procalcitonin 0.9 10/22: patient still has low-grade fever over the night, leukocytosis improving, but swelling and tenderness is extending changed to vancomycin Zosyn IV, stop clindamycin Subjective Date/time seen: 10/23/23 08:17 Interval history: I saw exam patient today, he redness and swelling is extending to the elbow. patient has low-grade fever over the night, blood pressure stable, white blood cell is improving Exam Narrative: GENERAL: Pleasant, in no acute distress. Well-nourished. - EYES: EOMI. Anicteric. - HENT: Moist mucous membranes. - LUNGS: Clear to auscultation bilaterally, no wheezing, rhonchi, or rales. - CARDIOVASCULAR: Regular rate and rhythm. No murmur. No JVD. - ABDOMEN: Soft, non-tender and non-distended. No palpable masses. - EXTREMITIES: No edema. Peripheral pulses 2+. Non-tender. - NEUROLOGIC: No focal neurological deficits. CN II-XII grossly intact. - PSYCHIATRIC: Awake, Alert and oriented x 3. Appropriate mood and affect. - SKIN: redness, tender, swelling of right arm from the right wrist above - LYMPH: No cervical lymphadenopathy. Objective Data Vital Signs Vital Signs: Vital Signs - 24 hr 10/22/23 08:38 10/22/23 13:56 10/22/23 19:43 Temperature 99.3 F Pulse Rate 83 Respiratory Rate 18 Blood Pressure 133/63 Pulse Oximetry 94 95 Oxygen Delivery Room Air Room Air Fraction of Inspired Oxygen 21 10/22/23 21:59 10/23/23 05:49 Temperature 98.4 F 97.7 F Pulse Rate 78 73 Respiratory Rate 14 12
[2023-10-23] MEDS: PANTOPRAZOLE 40 MG TABLET PO (08:46)
[2023-10-23] MEDS: amLODIPine BESYLATE 5 MG TABLET PO (08:46)
[2023-10-23] MEDS: VENLAFAXINE HCL XR 75 MG CAP.ER.24H PO (08:46)
[2023-10-23 08:52] LABS: Basophils Absolute Auto 0.1 K/mm3 (0.0-0.1); Basophils Percent Auto 0.4 % (0.2-1.2); Eosinophils Absolute Auto 0.3 K/mm3 (0-0.3); Eosinophils Percent Auto 1.4 % (0-4.4); Hematocrit 37.4 % (37.0-47.0); Hemoglobin 12.1 g/dL (12.0-15.0); Immature Granulocyte Percent A 0.5 % (0-0.5); Lymphocytes Absolute Auto 2.57 K/mm3 (0.9-3.2); Lymphocytes Percent Auto 13.9 % (18.3-44.2); Mean Corpuscular HGB Conc 32.4 g/dl (32-36); Mean Corpuscular Hemoglobin 31.5 pg (26-34); Mean Corpuscular Volume 97.4 fl (80-100); Mean Platelet Volume 9.9 fl (7.4-10.4); Monocytes Absolute Auto 1.4 K/mm3 (0.1-0.6); Monocytes Percent Auto 7.6 % (2.6-8.5); Neutrophils Absolute Auto 14.1 K/mm3 (1.3-6.7); Neutrophils Percent Auto 76.2 % (45.5-73.1); Platelet Count Result 267 k/mm3 (150-375); Red Blood Count 3.84 M/mm3 (4.2-5.4); Red Cell Distribution Width 13.4 % (11.5-14.5); White Blood Count 18.5 K/mm3 (4.5-10.0)
[2023-10-23 09:13] LABS: Anion Gap 6 mmol/L (4-12); Blood Urea Nitrogen 11 mg/dL (7-17); Calcium 8.4 mg/dL (8.4-10.2); Carbon Dioxide 23 mmol/L (22-30); Chloride 109 mmol/L (98-107); Estimated CRCL calculation 66 ml/min; Estimated Glomerular Filt Rate > 60; Glucose 102 mg/dL (65-110); Potassium 3.6 mmol/L (3.4-5.0); Sodium 138 mmol/L (137-145)
[2023-10-23] MEDS: ASPIRIN 325 MG TABLET PO (09:55)
[2023-10-23] MEDS: DOCUSATE SODIUM 100 MG CAPSULE PO (12:25)
[2023-10-23] MEDS: polyethylene glycoL 3350 17 GM POWD.PACK PO (12:25)
[2023-10-23] MEDS: VANCOMYCIN 1,250 MG/NS 250 ML 1,250 MG/250 ML BAG 166.67 MG IVPB (13:14)
[2023-10-23 14:00] VITALS: BP 131/68; PULSE 75; RESP 18; TEMP 35.9; O2SAT 95
--- NOTE | 2023-10-23 14:21 | PHA.ABX.ID ---
Pharmacy ID Consult - Stewardship Interventions Type of Interventions: Escalation Pharmacy ID Note: Subjective Pharmacy was consulted by Pat Wray regarding infectious diseases for Rambo Singh. Rambo Singh is a 78 year old F with concerns regarding the management of a cat bite. Background The patient is currently receiving Zosyn and IV clindamycin. The patient's PMH includes slight worsening per provider of the cellulitis of cat bite on right forearm. Additionally, patient had slight fever overnight per provider note. Blood cultures obtained on October 20 and are currently preliminary NGTD. Assessment/Recommendation/Discussion Spoke briefly with provider - provided few treatment options- provider wanted to expand coverage to include MRSA coverage and wanted to stick with Zosyn at this time so clindamycin was discontinued and pharmacy to dose vancomycin was initiated. Will continue to follow. Thank you for the interesting consult. Jm Olmos, PharmD Infectious Disease/Antimicrobial Stewardship Pharmacist 10/23/23; 1421 WBC 18.5 K/mm3 (4.5-10.0) H 10/23/23 08:41 Creatinine 0.60 mg/dL (0.7-1.0) L 10/23/23 08:41 Estim Creat Clear Calc 66 ml/min 10/23/23 08:41
[2023-10-23 16:13] LABS: Procalcitonin 0.5 ng/mL
[2023-10-23] MEDS: traMADol HCL (*CRX) 50 MG TABLET PO (17:34)
[2023-10-23 21:45] VITALS: BP 153/69; PULSE 85; RESP 13; TEMP 36.7; O2SAT 94
[2023-10-24] MEDS: traMADol HCL (*CRX) 50 MG TABLET PO (00:15)
[2023-10-24] MEDS: PIPERACILLN/TAZ 3.375GM/NS50ML 3.375 GM/50 ML BAG IVPB ×4 (00:15→17:51)
[2023-10-24] MEDS: SODIUM CHLORIDE 0.9% IV 1,000 ML 125 ML IV CONT (03:01)
[2023-10-24 05:46] VITALS: BP 133/62; PULSE 71; RESP 13; TEMP 36.8; O2SAT 91
[2023-10-24] MEDS: ASPIRIN 325 MG TABLET PO (08:39)
[2023-10-24] MEDS: VANCOMYCIN 1,250 MG/NS 250 ML 1,250 MG/250 ML BAG 166.67 MG IVPB (08:39)
[2023-10-24] MEDS: polyethylene glycoL 3350 17 GM POWD.PACK PO (08:39)
[2023-10-24] MEDS: amLODIPine BESYLATE 5 MG TABLET PO (08:39)
[2023-10-24] MEDS: VENLAFAXINE HCL XR 75 MG CAP.ER.24H PO (08:39)
[2023-10-24] MEDS: PANTOPRAZOLE 40 MG TABLET PO (08:39)
[2023-10-24 08:40] VITALS: O2SAT 98
[2023-10-24 08:50] LABS: Basophils Percent Auto 0.3 % (0.2-1.2); Eosinophils Absolute Auto 0.3 K/mm3 (0-0.3); Eosinophils Percent Auto 2.9 % (0-4.4); Hemoglobin 10.9 g/dL (12.0-15.0); Immature Granulocyte Absolute 0.05 K/mm3 (0.00-0.031); Immature Granulocyte Percent A 0.4 % (0-0.5); Lymphocytes Absolute Auto 2.17 K/mm3 (0.9-3.2); Lymphocytes Percent Auto 18.7 % (18.3-44.2); Mean Corpuscular HGB Conc 32.1 g/dl (32-36); Mean Corpuscular Hemoglobin 30.6 pg (26-34); Mean Corpuscular Volume 95.5 fl (80-100); Mean Platelet Volume 10.3 fl (7.4-10.4); Neutrophils Percent Auto 68.7 % (45.5-73.1); Platelet Count Result 259 k/mm3 (150-375); Red Blood Count 3.56 M/mm3 (4.2-5.4); Red Cell Distribution Width 13.1 % (11.5-14.5); White Blood Count 11.6 K/mm3 (4.5-10.0)
[2023-10-24 08:53] VITALS: O2SAT 95
[2023-10-24 08:55] LABS: Anion Gap 5 mmol/L (4-12); Blood Urea Nitrogen 7 mg/dL (7-17); Calcium 8.5 mg/dL (8.4-10.2); Carbon Dioxide 24 mmol/L (22-30); Chloride 110 mmol/L (98-107); Estimated CRCL calculation 68 ml/min; Estimated Glomerular Filt Rate > 60; Glucose 94 mg/dL (65-110); Potassium 3.8 mmol/L (3.4-5.0); Sodium 139 mmol/L (137-145)
[2023-10-24 14:00] VITALS: BP 120/52; PULSE 78; RESP 18; TEMP 37.4; O2SAT 94
--- NOTE | 2023-10-24 15:23 | PM.IMPN ---
Progress Note: A&P Assessment and Plan (1) Cellulitis of right forearm: Code(s): L03.113 - Cellulitis of right upper limb Status: Acute (2) Gastroesophageal reflux disease: Code(s): K21.9 - Gastro-esophageal reflux disease without esophagitis Status: Acute (3) Hyperlipidemia: Code(s): E78.5 - Hyperlipidemia, unspecified Status: Acute (4) Hypertension: Code(s): I10 - Essential (primary) hypertension Status: Acute (5) Infected cat bite of forearm: Qualifiers: Encounter type: initial encounter Laterality: right Qualified Code(s): S51.851A - Open bite of right forearm, initial encounter; L08.9 - Local infection of the skin and subcutaneous tissue, unspecified; W55.01XA - Bitten by cat, initial encounter Code(s): S51.859A - Open bite of unspecified forearm, initial encounter; L08.9 - Local infection of the skin and subcutaneous tissue, unspecified; W55.01XA - Bitten by cat, initial encounter Status: Acute (6) Cat scratch of right forearm with infection: Qualifiers: Encounter type: initial encounter Qualified Code(s): S50.811A - Abrasion of right forearm, initial encounter; L08.9 - Local infection of the skin and subcutaneous tissue, unspecified; W55.03XA - Scratched by cat, initial encounter Code(s): S50.811A - Abrasion of right forearm, initial encounter; L08.9 - Local infection of the skin and subcutaneous tissue, unspecified; W55.03XA - Scratched by cat, initial encounter Status: Acute (7) Cat bite of right forearm with infection: Qualifiers: Encounter type: initial encounter Qualified Code(s): S51.851A - Open bite of right forearm, initial encounter; L08.9 - Local infection of the skin and subcutaneous tissue, unspecified; W55.01XA - Bitten by cat, initial encounter Code(s): S51.851A - Open bite of right forearm, initial encounter; L08.9 - Local infection of the skin and subcutaneous tissue, unspecified; W55.01XA - Bitten by cat, initial encounter Status: Acute Plan Improving. Discontinue fluids. Continue vancomycin and Zosyn. Check procalcitonin white count the morning. Hopefully home tomorrow. Blood cultures no growth today. SCDs. Full code. Ambulate in halls 3 times a day. Subjective Date/time seen: 10/24/23 15:23 Interval history: No acute overnight events. Patient reports resolution pain in the arm as well as improved swelling. No complaints. Review of Systems Review of Systems: All systems reviewed & are unremarkable except as noted in HPI and below (Subjective) Exam Const: General: comfortable and no acute distress Other: A&O x3 Extrem: General: edema (Slight erythema and edema of the right upper extremity distal to the elbow.) Other: No tenderness to palpation. No lymphadenopathy appreciated. Objective Data Vital Signs Vital Signs: Vital Signs - 24 hr 10/23/23 20:00 10/23/23 21:45 10/24/23 05:46 Temperature 98.0 F 98.3 F Pulse Rate 85 71 Respiratory Rate 13 13 Blood Pressure 153/69 H 133/62 Pulse Oximetry 94 91 Oxygen Delivery Room Air 10/24/23 08:53 10/24/23 08:40 10/24/23 14:00 Temperature 99.3 F Pulse Rate 78 Respiratory Rate 18 Blood Pressure 120/52 L Pulse Oximetry 95 98 94 Oxygen Delivery Room Air Room Air Intake/Output Intake/Output: Intake & Output 10/21/23 10/22/23 10/23/23 10/24/23 23:59 23:59 23:59 23:59 Intake Total 1999 3910 3760 2610 Balance 1999 3910 3760 2610 Meds/Results Medications: Active Medications Generic Name Dose Route Start Last Admin Trade Name Freq PRN Reason Stop Dose Admin Acetaminophen 650 mg 10/21/23 13:14 Acetaminophen 325 Mg Tablet PO Q6H PRN Mild Pain (1-3) or Fever Amlodipine Besylate 5 mg 10/22/23 09:00 10/24/23 08:39 Amlodipine Besylate 5 Mg Tablet PO 5 mg QAM TROY Administration Aspirin 325 mg 10/23/23 08:00 10/24/23 08:39 Aspirin 325
[2023-10-24 18:15] LABS: Procalcitonin 0.4 ng/mL
[2023-10-24] MEDS: oxyCODONE/ACETAMINOPHEN (*CRX) 5-325 MG TABLET 1 TABLET PO (20:23)
[2023-10-24 22:00] VITALS: BP 160/73; PULSE 85; RESP 16; TEMP 36.8; O2SAT 97
[2023-10-24 22:12] LABS: Influenza A QL RT-PCR Negative (Negative); Influenza B QL RT-PCR Negative (Negative); RSV RNA, RT-PCR Negative (Negative); SARS-CoV-2 RNA PCR Negative (Negative)
[2023-10-25] MEDS: PIPERACILLN/TAZ 3.375GM/NS50ML 3.375 GM/50 ML BAG IVPB ×2 (00:10→06:33)
[2023-10-25] MEDS: traMADol HCL (*CRX) 50 MG TABLET PO (00:10)
[2023-10-25] MEDS: VANCOMYCIN 1,250 MG/NS 250 ML 1,250 MG/250 ML BAG 166.6 MG IVPB (00:11)
[2023-10-25] MEDS: SODIUM CHLORIDE 0.9% IV 250 ML 10 ML (00:11)
[2023-10-25] MEDS: oxyCODONE/ACETAMINOPHEN (*CRX) 5-325 MG TABLET 1 TABLET PO (02:17)
[2023-10-25 06:00] VITALS: BP 131/70; PULSE 62; RESP 18; TEMP 36.5; O2SAT 96
[2023-10-25 06:17] LABS: Basophils Percent Auto 0.3 % (0.2-1.2); Eosinophils Absolute Auto 0.4 K/mm3 (0-0.3); Eosinophils Percent Auto 4.7 % (0-4.4); Hematocrit 30.6 % (37.0-47.0); Immature Granulocyte Absolute 0.05 K/mm3 (0.00-0.031); Immature Granulocyte Percent A 0.5 % (0-0.5); Lymphocytes Percent Auto 25.1 % (18.3-44.2); Mean Corpuscular HGB Conc 32.7 g/dl (32-36); Mean Corpuscular Hemoglobin 31.8 pg (26-34); Mean Corpuscular Volume 97.5 fl (80-100); Mean Platelet Volume 10.2 fl (7.4-10.4); Monocytes Absolute Auto 0.9 K/mm3 (0.1-0.6); Monocytes Percent Auto 9.7 % (2.6-8.5); Neutrophils Absolute Auto 5.5 K/mm3 (1.3-6.7); Neutrophils Percent Auto 59.7 % (45.5-73.1); Platelet Count Result 265 k/mm3 (150-375); Red Blood Count 3.14 M/mm3 (4.2-5.4); White Blood Count 9.2 K/mm3 (4.5-10.0)
[2023-10-25 06:37] LABS: Estimated CRCL calculation 68 ml/min; Estimated Glomerular Filt Rate > 60
[2023-10-25] MEDS: amLODIPine BESYLATE 5 MG TABLET PO (08:17)
[2023-10-25] MEDS: ASPIRIN 325 MG TABLET PO (08:17)
[2023-10-25] MEDS: VENLAFAXINE HCL XR 75 MG CAP.ER.24H PO (08:17)
[2023-10-25] MEDS: PANTOPRAZOLE 40 MG TABLET PO (08:17)
--- NOTE | 2023-10-25 08:32 | PM.DS ---
DS: Admitting Diagnosis Discharge Date October 25, 2023 Admitting Diagnosis Cat scratch and cat bite DS: Discharge Diagnosis Discharge Diagnosis (1) Cellulitis of right forearm: Code(s): L03.113 - Cellulitis of right upper limb Status: Acute (2) Cat scratch of right forearm with infection: Qualifiers: Encounter type: initial encounter Qualified Code(s): S50.811A - Abrasion of right forearm, initial encounter; L08.9 - Local infection of the skin and subcutaneous tissue, unspecified; W55.03XA - Scratched by cat, initial encounter Code(s): S50.811A - Abrasion of right forearm, initial encounter; L08.9 - Local infection of the skin and subcutaneous tissue, unspecified; W55.03XA - Scratched by cat, initial encounter Status: Acute (3) Cat bite of right forearm with infection: Qualifiers: Encounter type: initial encounter Qualified Code(s): S51.851A - Open bite of right forearm, initial encounter; L08.9 - Local infection of the skin and subcutaneous tissue, unspecified; W55.01XA - Bitten by cat, initial encounter Code(s): S51.851A - Open bite of right forearm, initial encounter; L08.9 - Local infection of the skin and subcutaneous tissue, unspecified; W55.01XA - Bitten by cat, initial encounter Status: Acute DS: Summary Hospital Course Hospital Course: 78-year-old female with a history of TIA, hypertension, GERD sense to the ED after a cat bite and cat scratch. She presented with sepsis on admission given tetanus shot and Zosyn. Vancomycin was given for a few days as well. On 10/25/2023 her erythema is nearly completely resolved. Is afebrile and leukocytosis has resolved. She is sent home on stable condition. Will receive another 7 days of Bactrim double-strength. She is aware if her of infection return she should return to the ER. Adverse effects risk and benefits discussed with the patient and she is in understanding and agreement with the plan. She is to follow-up with her primary care physician in 2 weeks. Patient was full code during her admission Time Spent with Patient Time attestation: Total time spent providing and/or coordinating discharge services: Exam Const: General: cooperative and no acute distress Resp: Effort & Inspection: normal respiratory effort Auscultation: clear to auscultation bilaterally Cardio: Rate: regular rate Rhythm: regular rhythm Heart sounds: S1 normal heart sound present and S2 normal heart sound present GI: GI Palp: No abdominal tenderness Auscultation: normal bowel sounds Extrem: General: no edema Other: Trivial erythema of the right forearm. No lymphadenopathy. Mild tenderness to deep palpation. Neurovascularly intact DS: Data Data Completed and Pending Labs on day of discharge: Labs from last 24 hours 10/25/23 10/24/23 10/24/23 05:39 21:31 08:13 WBC 9.2 11.6 H RBC 3.14 L 3.56 L Hgb 10.0 L 10.9 L Hct 30.6 L 34.0 L MCV 97.5 95.5 MCH 31.8 30.6 MCHC 32.7 32.1 RDW 13.0 13.1 Plt Count 265 259 MPV 10.2 10.3 Immature Gran % (Auto) 0.5 0.4 Neut % (Auto) 59.7 68.7 Lymph % (Auto) 25.1 18.7 [place] % (Auto) 9.7 H 9.0 H Eos % (Auto) 4.7 H 2.9 Baso % (Auto) 0.3 0.3 Lymph # (Auto) 2.30 2.17 [place] # (Auto) 0.9 H 1.0 H Eos # (Auto) 0.4 H 0.3 Baso # (Auto) 0.0 0.0 Abs Immat Gran (auto) 0.05 H 0.05 H Absolute Neuts (auto) 5.5 8.0 H Absolute Nucleated RBC 0.000 0.000 Nucleated RBC % 0.0 0.0 Sodium 139 Potassium 3.8 Chloride 110 H Carbon Dioxide 24 Anion Gap 5 BUN 7 Creatinine 0.60 L 0.60 L Estim Creat Clear Calc 68 68 Estimated GFR > 60 > 60 Glucose 94 Calcium 8.5 Procalcitonin 0.4 Influenza A (RT-PCR) Negative Influenza B (RT-PCR) Negative RSV (RT-PCR) Negative SARS-CoV-2 RNA (RT-PCR) Negative Preliminary micro results at discharge 10/21/23 09:34 Blood Culture - Preliminary Blood 10/04
== END 2023-10-25 11:40 | disposition home or self-care (01) | DRG 872 ==
LOC: ANHED 10:15 → ANH3MEDSUR 10:24
PROVIDERS: Physician Assistant; Student in an Organized Health Care Education/Training Program; Admitting Provider Hospitalist; Emergency Provider Nurse Practitioner Family; PCP Internal Medicine; Visit Provider General Practice
DX: A41.9 Sepsis, unspecified organism (principal); L03.113 Cellulitis of right upper limb; S51.851A Open bite of right forearm, initial encounter; W55.01XA Bitten by cat, initial encounter; S50.811A Abrasion of right forearm, initial encounter; W55.03XA Scratched by cat, initial encounter; I10 Essential (primary) hypertension; E78.5 Hyperlipidemia, unspecified; K21.9 Gastro-esophageal reflux disease without esophagitis; Z20.822 Contact with and (suspected) exposure to COVID-19; Z23 Encounter for immunization; Z86.73 Personal history of transient ischemic attack (TIA), and cerebral infarction without residual deficits
CPT/HCPCS: 36415; 80048; 80053; 82565; 83605; 83735; 84145; 85025; 85027; 87040; 87637; 90471; 90715; 96365; 96376; 99285; A9270; G0378; J0295; J2543; J3370; J7030; J7050

== ENCOUNTER 2023-10-29 12:21 | Outpatient (CLI) | payer MEDICARE, SELFPAY ==
[2023-10-29 12:50] LABS: Basophils Absolute Auto 0.06 K/mm3 (0.00-0.10); Basophils Percent Auto 0.6 % (0.0-1.0); Eosinophils Absolute Auto 0.35 K/mm3 (0.02-0.50); Eosinophils Percent Auto 3.7 % (1.0-6.0); Hematocrit 37.5 % (35.0-42.0); Hemoglobin 11.9 g/dL (11.7-13.8); Immature Granulocyte Absolute 0.05 K/mm3 (0.00-0.00); Immature Granulocyte Percent A 0.5 % (0.0-0.0); Lymphocytes Absolute Auto 2.78 K/mm3 (1.10-4.50); Lymphocytes Percent Auto 29.4 % (18.0-42.0); Mean Corpuscular HGB Conc 31.7 g/dL (32-36); Mean Corpuscular Hemoglobin 29.6 pg (27.0-31.0); Mean Corpuscular Volume 93.3 fL (78.0-102.0); Mean Platelet Volume 9.5 fl (9.2-11.8); Monocytes Absolute Auto 0.73 K/mm3 (0.10-0.90); Monocytes Percent Auto 7.7 % (2.0-11.0); Neutrophils Absolute Auto 5.47 K/mm3 (1.70-7.20); Neutrophils Percent Auto 58.1 % (50.0-70.0); Platelet Count Result 425 K/mm3 (150-420); Red Blood Count 4.02 M/mm3 (4.20-5.40); Red Cell Distribution Width 13.2 % (11.6-14.4); White Blood Count 9.4 K/mm3 (4.8-10.8)
[2023-10-29 13:07] LABS: Alanine Aminotransferase 40 U/L (14-59); Albumin Level 3.5 g/dL (3.4-5.0); Alkaline Phosphatase 93 U/L (46-116); Anion Gap 9 mmol/L (4-12); Aspartate Amino Transferase 36 U/L (15-37); Bilirubin,Total 0.2 mg/dL (0.00-1.00); Blood Urea Nitrogen 11 mg/dL (7-18); Calcium 9.1 mg/dL (8.5-10.1); Carbon Dioxide 30 mmol/L (21-32); Chloride 105 mmol/L (98-108); Estimated Glomerular Filt Rate 49; Glucose 90 mg/dL (70-99); Osmolality Calculated 297 mOsm/kg (285-295); Potassium 4.7 mmol/L (3.5-5.1); Sodium 144 mmol/L (136-145)
[2023-10-29 16:16] LABS: Toxigenic C. Diff NEGATIVE (NEGATIVE)
== END 2023-10-29 12:22 | disposition home or self-care (01) ==
LOC: CHSLAB 12:25
PROVIDERS: PCP Internal Medicine; Visit Provider Internal Medicine
DX: L03.113 Cellulitis of right upper limb (principal)
CPT/HCPCS: 36415; 80053; 85025; 86140; 87493

== ENCOUNTER 2023-11-05 12:25 | Outpatient (CLI) | payer MEDICARE, SELFPAY ==
[2023-11-05 12:50] LABS: Basophils Absolute Auto 0.07 K/mm3 (0.00-0.10); Basophils Percent Auto 0.9 % (0.0-1.0); Eosinophils Percent Auto 5.3 % (1.0-6.0); Hematocrit 38.4 % (35.0-42.0); Hemoglobin 12.3 g/dL (11.7-13.8); Immature Granulocyte Absolute 0.02 K/mm3 (0.00-0.00); Immature Granulocyte Percent A 0.3 % (0.0-0.0); Lymphocytes Absolute Auto 2.75 K/mm3 (1.10-4.50); Lymphocytes Percent Auto 36.6 % (18.0-42.0); Mean Corpuscular Volume 93.7 fL (78.0-102.0); Mean Platelet Volume 9.4 fl (9.2-11.8); Monocytes Absolute Auto 0.66 K/mm3 (0.10-0.90); Monocytes Percent Auto 8.8 % (2.0-11.0); Neutrophils Absolute Auto 3.62 K/mm3 (1.70-7.20); Neutrophils Percent Auto 48.1 % (50.0-70.0); Platelet Count Result 419 K/mm3 (150-420); Red Cell Distribution Width 12.4 % (11.6-14.4); White Blood Count 7.5 K/mm3 (4.8-10.8)
[2023-11-05 13:50] LABS: Alanine Aminotransferase 29 U/L (14-59); Albumin Level 3.5 g/dL (3.4-5.0); Alkaline Phosphatase 93 U/L (46-116); Anion Gap 6 mmol/L (4-12); Aspartate Amino Transferase 15 U/L (15-37); Bilirubin,Total 0.2 mg/dL (0.00-1.00); Blood Urea Nitrogen 20 mg/dL (7-18); Calcium 9.5 mg/dL (8.5-10.1); Carbon Dioxide 32 mmol/L (21-32); Chloride 104 mmol/L (98-108); Cholesterol 154 mg/dL (0-200); Estimated Glomerular Filt Rate > 60; Glucose 66 mg/dL (70-99); HDL Direct 46 mg/dL (40-60); LDL Cholesterol Calculated 72 mg/dL (<130); Osmolality Calculated 294 mOsm/kg (285-295); Potassium 5.3 mmol/L (3.5-5.1); Sodium 142 mmol/L (136-145); Total Protein 7.1 g/dL (6.4-8.2); Triglycerides 179 mg/dL (0-150)
[2023-11-05 14:04] LABS: CRP < 0.5 mg/dL (0.0-0.9)
== END 2023-11-05 12:26 | disposition home or self-care (01) ==
LOC: CHSLAB 12:29
PROVIDERS: PCP Internal Medicine; Visit Provider Internal Medicine
DX: E78.5 Hyperlipidemia, unspecified (principal); L03.90 Cellulitis, unspecified
CPT/HCPCS: 36415; 80053; 80061; 85025; 86140

== ENCOUNTER 2024-11-03 09:36 | Outpatient (CLI) | payer MEDICARE, SELFPAY ==
[2024-11-03 09:56] LABS: Basophils Absolute Auto 0.04 K/mm3 (0.00-0.10); Basophils Percent Auto 0.5 % (0.0-1.0); Eosinophils Absolute Auto 0.39 K/mm3 (0.02-0.50); Eosinophils Percent Auto 5.1 % (1.0-6.0); Hematocrit 39.7 % (35.0-42.0); Hemoglobin 12.6 g/dL (11.7-13.8); Immature Granulocyte Absolute 0.03 K/mm3 (0.00-0.00); Immature Granulocyte Percent A 0.4 % (0.0-0.0); Lymphocytes Absolute Auto 2.47 K/mm3 (1.10-4.50); Lymphocytes Percent Auto 32.4 % (18.0-42.0); Mean Corpuscular HGB Conc 31.7 g/dL (32-36); Mean Corpuscular Hemoglobin 29.2 pg (27.0-31.0); Mean Corpuscular Volume 91.9 fL (78.0-102.0); Mean Platelet Volume 9.7 fl (9.2-11.8); Monocytes Absolute Auto 0.63 K/mm3 (0.10-0.90); Monocytes Percent Auto 8.3 % (2.0-11.0); Neutrophils Absolute Auto 4.07 K/mm3 (1.70-7.20); Neutrophils Percent Auto 53.3 % (50.0-70.0); Platelet Count Result 319 K/mm3 (150-420); Red Blood Count 4.32 M/mm3 (4.20-5.40); Red Cell Distribution Width 13.2 % (11.6-14.4); White Blood Count 7.6 K/mm3 (4.8-10.8)
[2024-11-03 10:02] LABS: Add Urine Microscopic? YES; Bilirubin Urine Negative (Negative); Blood Urine 1+ (Negative); Color Urine Yellow (Yellow); Glucose Urine UA Negative (Negative); Ketones Urine Negative (Negative); Leukocyte Esterase Ur 3+ (Negative); Nitrate Urine Positive (Negative); Protein Urine 1+ (Negative); Urobilinogen Urine 0.2 mg/dL (0.2-1.0)
[2024-11-03 10:06] LABS: Appearance Urine Cloudy (Clear); WBC Urine >75 /hpf (0-3)
--- OUTSIDE RECORDS SUMMARY | 2024-11-03 10:06 | XMS_ITS | Clinical Summary ---
Author Organization [facility] Address [address] [place] [address] Care Team Providers Care Motors Assembler Name Role Phone Antony Clinton MD Primary Care Provider [phone] Allergies Active Allergy Reactions Criticality Noted Date Comments Albuterol Nausea And Vomiting Low 11/15/2014 Medications multivitamin tablet Take 1 tablet by mouth daily Active ascorbic acid (VITAMIN C) 500 mg tablet,chewable 1,000 mg Acti ve cholecalciferol (VITAMIN D-3) 400 unit capsule Act adrienne vitamin E (AQUASOL E) 400 unit capsule Take 1 capsule (400 Units total) by mouth Active calcium citrate 250 mg calcium tablet tablet Active zinc 50 mg tablet Take by mouth Active Xiidra 5 % dropperette 03/19/2022 Active atorvastatin (LIPITOR) 40 mg tablet Take 1 tablet (40 mg total) by mouth nightly 30 tablet 2 08/17/2022 Active amLODIPine (NORVASC) 5 mg tablet Take 1 tablet (5 mg total) by mouth daily 30 tablet 2 08/18/2022 Active famotidine (PEPCID) 40 mg tablet Take 1 tablet (40 mg total) by mouth daily 30 tablet 3 08/18/2022 Active aspirin 325 mg enteric coated tablet Take 1 tablet (325 mg total) by mouth daily for 89 doses 30 tablet 2 08/19/[address] (NexIUM) 40 mg capsule 10/01/2022 Active venlafaxine XR (EFFEXOR-XR) 150 mg 24 hr capsule 10/17/2022 Ac tive Active Problems Problem Noted Date Diagnosed Date Essential hypertension 11/10/2023 Basilar artery stenosis 05/12/2023 Vertigo 08/17/2022 Gastroesophageal reflux disease 04/15/2022 Assessment & Plan (04/15/2022 1:47 PM CDT): egd possible dil Dysphagia 04/15/2022 Overview (04/15/2022): Added automatically from request for surgery [id number] Personal history of colonic polyps 07/17/2021 Overview (07/17/2021): Added automatically from request for surgery [id number] Encounter for screening colonoscopy 07/17/2021 Overview (07/17/2021): Added automatically from request for surgery [id number] Skin lesion of right arm 01/09/2021 Overview (01/09/2021): Added automatically from request for surgery [id number] Malignant melanoma of skin of chest 01/09/2021 Overview (01/09/2021): Added automatically from request for surgery [id number] Arthralgia of elbow 02/03/2014 Cervical radiculopathy 05/26/2011 Spinal stenosis of cervical region 05/26/2011 Plantar fasciitis 09/17/2010 Valgus deformity of great toe 09/17/2010 Bunion 09/13/2010 Hammer toe 09/13/2010 Immunizations Immunization Administration Dates Next Due Hep A, Adult 07/30/2010,12/25/2009 Influenza, Quadrivalent, Hig h Dose, Preservative Free, Intrr 03/27/2022,02/19/2021,03/29/2020 Influenza, Quadrivalent, Spl it, Intramuscular 03/13/2016 Influenza, Trivalent, Adjuva nted, Intramuscular 02/15/2019 Influenza, Trivalent, High D ose, Split, Preservative Free, Intramuscular 03/15/2018,02/15/2017,04/15/2015 Influenza, Trivalent, IM (MDV) 04/18/2015,2012 Pfizer SARS-CoV-2 Monovalent Vaccination (12+ Yrs) PURPLE 08/29/2020,08/08/2020 Pneumococcal Conjugate PCV 13 01/04/2018 Pneumococcal Polysaccharide PPV23 06/16/2019, Tdap 06/16/2019 ZOSTER Recombinant 08/16/2019,06/15/2019 Surgical History Surgery Date Site/Laterality Comments KNEE SURGERY Knee Surgery - (Added by TW Conv) IA TOTAL ABDOMINAL HYSTERECT W/WO RMVL TUBE OVARY Hysterectomy - (Added by TW Conv) BREAST BIOPSY HYSTERECTOMY COLONOSCOPY 11/03/2016 - 12/03/2016 Medical History Medical History Date Comments Personal history of other me ntal and behavioral disorders History of depression - (Add ed by TW Conv) GERD (gastroesophageal reflux disease) Melanoma (HCC) chest, and 2 lym ph nodes removed from rt axilla Kidney stone 1968 left kidney ston es removed Arthritis Hypertension Stroke (HCC) 2022 Family History Medical History Relation Name Comments Arthritis Mother Jannet Vesoar Hypertension Mother Jannet Vesoar Stroke Mother Jannet Vesoar Diabetes Other 1 Diabetes Mellit us - (Added by TW Conv) Cancer Other 2 Cancer - (Added by TW Conv) Stroke Other 3 Stroke Syndrome - (Added by TW Conv) Ovarian cancer Sister 1 Cancer Sister 2 Ria Garciamable Hypertension Sister 2 Ria Garciacarlitayomi Relation Name Status Comments Mother Jannet Vesoar Other 1 Other 2 Other 3 Sister 1 Sister 2 Ria Willoughby Social History Tobacco Use Types Packs/Day Years Used Date Smoking Tobacco: Never Cigarettes Smokeless Tobacco: Never AUDIT-C Answer Date Recorded Q1: How often do you have a drink containing alc ohol? Never 01/17/2021 Average Number of Drinks Not on file 021 Frequency of Binge Drinking Not on file 01/03 PHQ-2 Answer Date Recorded PHQ-2 Total Score 0 08/17/2022 Personal Safety Answer Date Recorded Getting School Help Needed Denies 07/17 Comments No Sex and Gender Information Value Date Recorded Sex Assigned at Not on file Legal Sex Female 12:59 PM CLINICAL FACULTY Gender Identity Not on file Sexual Orientation Not on file Occupation Industry Job Start Date Job End Date Retired Not on file Not on file Not on file Obstetrics History Para Term AB IAB SAB Ectopic Multiple Livin g Live Births 3 3 3 3 3 Date Outcome GA Total Labor Labor/2nd/3rd Weight Sex Type Anes PTL Analilia A1 A5 Name Clin 1965 Term 40w 0d 3.345 kg (7 lb 6 oz) F Vag-S pont General N Living Complications:None 1968 Term 40w 0d 2.92 kg (6 lb 7 oz) F Vag-S pont General N Living Complications:None 1971 Term 40w 0d 3.884 kg (8 lb 9 oz) M Vag-S pont General N Living Complications:None Last Filed Vital Signs Vital Sign Reading Time Taken Comments Blood Pressure 130/88 12/02/2023 10:10 AM CDT Pulse 72 05/12/2023 1:11 PM CLINICAL FACULTY Temperature 36.8 C (98.2 F) 05/12/2023 1:11 PM CLINICAL FACULTY Respiratory Rate 20 05/12/2023 1:11 PM CLINICAL FACULTY Oxygen Saturation 94% 05/12/2023 1:11 PM CLINICAL FACULTY Inhaled Oxygen Concentration - - Weight 73.5 kg (162 lb) 12/02/2023 10:10 AM CDT Height 157.5 cm (5' 2 ) 12/02/2023 10:10 AM CDT Body Mass Index 29.63 12/02/2023 10:10 AM CDT Plan of Treatment Health Maintenance Due Date Last Done Comments Hepatitis C Screening 1945 Hepatitis B Screening 1963 Osteoporosis Screening-Bone Density Scan 11/19/2022 11/19/2020, 11/19/2020 Depression Screening 08/16/2023 08/16/2022, 08/16/19 Fall Risk Assessment 08/18/2023 08/18/2022 Covid-19 Vaccine (2023-2 5 season) 2024 03/27/2022, 10/30/2021, 04/06/2021, Additional history exists Well Visit 65+ 12/01/2024 12/02/2023, 11/04, 11/25/2021 Influenza Vaccine (Season Ended) 2025 03/27/2022, 02/19/2021, 03/29/2020, Additional history exists DTaP/Tdap/Td Vaccine (2 - Td or Tdap) 06/16/2029 06/16/2019 Pneumococcal vaccine 65+ Completed 019, 01/04/2018, 05/03/2013 Zoster Vaccine Completed 08/16/2019, 06/15/2019 Colon Cancer Screening-CT Colonography Discontinued 09/13/2021, 11/04/2016 Colon Cancer Screening-Colonoscopy Discontinued 09/13/2021, 11/04/2016 Colon Cancer Screening-DNA Stool Discontinued 09/14/19 22, 11/04/2016 Colon Cancer Screening-FIT Discontinued 09/13/2021, Colon Cancer Screening-FOBT Discontinued 09/13/2021, 0 11/04/2016 Colon Cancer Screening-Sigmoidoscopy Discontinued 09/13/2021, 11/04/2016 Colorectal Cancer Screening Discontinued Breast Cancer Screening-Mammogram Discontinued 12/11/2023, 12/08/2022, 12/04/2021, Additional history exists Procedures Procedure Name Priority Date/Time Associated Diagnosis Comments SCREENING MAMMOGRAM BILATERAL W JEAN Schedule Routine, Read Routine (OP Routine) 12/11/2023 1:44 PM CDT Encounter for screening mammogram for malignant neoplasm of breast COLONOSCOPY 09/13/2021 8:05 AM CLINICAL FACULTY from Last 3 Months or Most Recently Relevant to Health Maintenance Results * Screening Mammogram Bilateral W Jean (12/11/2023 1:44 PM CDT) Anatomical Region Laterality Modality Breast Bilateral Mammography 12/11/2023 3:57 PM CDT Impressions 12/11/2023 3:57 PM CDT There is no mammographic evidence of malignancy. A 1 year screening mammogram is recommended. BI-RADS: 1 - Negative. The patient has been or will be contacted. The patient will be entered into a reminder system with a target due date of 1 year for her next mammogram. Electronically signed by: Jodie Gonzalez 12/11/2023 3:57 PM CDT EXAMINATION: SCREENING MAMMOGRAM BILATERAL W JEAN ORDERING HEALTHCARE PROVIDER: MARION FOREMAN HISTORY: Routine screening mammography. COMPARISON: 12/08/2022, 12/04/2021, 11/21/2020, 07/19/2019, 12/03/2017 TECHNIQUE: CC and MLO views of the bilateral breasts were obtained with digital technique using breast tomosynthesis with C view. Computer aided detection was utilized. FINDINGS: DENSITY: There are scattered fibroglandular elements in the bilateral breasts. BREASTS: There are no suspicious masses, suspicious calcifications, or other suspicious findings in either breast. There has been no suspicious interval change. us Marion Foreman DO IMG MAMMO PROCEDURES Fi nal Result * COLONOSCOPY (09/13/2021 8:05 AM CLINICAL FACULTY) Anatomical Region Laterality Modality Other Narrative Procedure Note Chu Delgado MD - 09/13/2021 8:05 AM CST [facility] Patient Name: Rambo Singh Procedure Date: 09/13/2021 8:05 AM Date of : 1945 Admit Type: Outpatient Age: 76 Gender: Female Attending MD: Chu Delgado M.D. Room: [facility] ENDOSCOPY ROOM 2 Note Status: Finalized Patient Profile: Refer to note in patient chart for documentation of history and physical. Procedure: Colonoscopy Indications: High risk colon cancer surveillance: Personalhistory of colonic polyps, Last colonoscopy: November 2016 Referring MD: Antony Clinton M.D. Providers: Chu Delgado M.D. Impression: - Hemorrhoids found on perianal exam. - One 2 mm polyp in the cecum, removed with a jumbo cold forceps. Resected and retrieved. - The examination was otherwise normal. Recommendation: - Discharge patient to home. - Resume previous diet. - Continue present medications. - Await pathology results. - Repeat colonoscopy in 5 years for surveillance. - Return to primary care physician as previously scheduled. Medicines: Propofol per Anesthesia Complications: No immediate complications. Estimated Blood Loss: Estimated blood loss: none. Procedure: Pre-Anesthesia Assessment: - This assessment was completed [Time ofAssessment] prior to the administration of sedation. The benefits, risks and alternatives of theprocedure and sedation were discussed and informed consentwas obtained. All questions were answered. Please referto the signed informed consent document in the medical record. The bowel preparation used was Miralax via single dose instruction. The bowel preparation used was bisacodyl tablets via single dose instruction.The scope was passed under direct vision. TheColonoscope [id number] was introduced through the anus and advanced to the the cecum, identified by appendiceal orifice and ileocecal valve. The colonoscopy was performed without difficulty. The patient tolerated the procedure well. The qualityof the bowel preparation was good. The ileocecalvalve, appendiceal orifice, and rectum werephotographed. Findings: Hemorrhoids were found on perianal exam. A 2 mm polyp was found in the cecum. The polyp was sessile. The polyp was removed with a jumbo cold forceps. Resection and retrieval were complete. Verification of patient identification for the specimen was done by the physician and nurse using the patient's name and birthdate. Estimated blood loss was minimal. The exam was otherwise without abnormality. Electronically signed by Chu Delgado M.D. Chu Delgado M.D. 09/13/2021 8:47:01 AM Number of Addenda: 0 Note Initiated On: 09/13/2021 8:05 AM Procedure Code(s): --- Professional --- 09576, Colonoscopy, flexible; with biopsy, single or multiple Diagnosis Code(s): --- Professional --- D12.0, Benign neoplasm of cecum K64.9, Unspecified hemorrhoids Z86.010, Personal history of colonic polyps CPT copyright 2020 [employer]. All rights reserved. The codes documented in this report are preliminary and upon engineering technical analyst reviewmay be revised to meet current compliance requirements. Recognized by the [place] [employer] for promoting quality in endoscopy Chu Delgado MD ENDOSCOPY PROCEDURES Final Re sult from Last 3 Months or Most Recently Relevant to Health Maintenance Insurance AETNA MEDICARE AETNA MEDICARE AETNA MEDICARE Advance Directives For more information, please contact: [phone] * Full Code (Latest Code Status on File) Date Activated Date Inactivated Comments 08/17/2022 4:04 AM 08/18/2022 4:48 PM * Full Code Date Activated Date Inactivated Comments 04/29/2022 7:19 AM 04/29/2022 12:47 PM * Full Code Date Activated Date Inactivated Comments 09/13/2021 7:26 AM 09/13/2021 1:35 PM * Full Code Date Activated Date Inactivated Comments 09/13/2021 7:26 AM 09/13/2021 7:26 AM Care Teams Motors Assembler Relationship Specialty Start Date End Date Antony Clinton MD PCP - General 11/04/16
[2024-11-03 10:07] LABS: Bacteria Urine Trace /hpf; Squamous Epithelial Cell Urine Many /hpf (Few)
--- OUTSIDE RECORDS SUMMARY | 2024-11-03 10:07 | XMS_ITS | Encounter Summary ---
Author Organization [facility] Address [address] [place] [address] Care Team Providers Care Cleaning And Maintenance Worker Name Role Phone Kayode Hooper MD Primary Care Provider Encounter Details Date Type Department Care Team (Late st Contact Info) Description 04/23/2000 Outpatient Historical [facility] Willi Ross MD [address] [place] [id number] Other symptoms involving digestive system(787.99) (Primary Dx) Social History Tobacco Use Types Packs/Day Years Used Date Smoking Tobacco: Never Assessed Comments Unknown Sex and Gender Information Value Date Recorded Sex Assigned at Not on file Legal Sex Female 5:19 AM OUTSIDE CONTRACTOR SALES Gender Identity Not on file Sexual Orientation Not on file documented as of this encounter Plan of Treatment Not on file documented as of this encounter Visit Diagnoses Diagnosis Other symptoms involving digestive system(787.99)- Primary Other symptoms involving digestive system documented in this encounter Care Teams Cleaning And Maintenance Worker Relationship Specialty Start Date End Date Kayode Hooper MD [address] [place] [address] PCP - General 04/23/00 10/25/20 documented as of this encounter
--- OUTSIDE RECORDS SUMMARY | 2024-11-03 10:07 | XMS_ITS | Encounter Summary ---
Author Organization [facility] Address [address] [place] [address] Care Team Providers Care Senior Energy Trader Name Role Phone Kayode Hooper MD Primary Care Provider [phone] Encounter Details Date Type Department Care Team (Latest Contact Info) Description 07/19/2001 Outpatient Historical [facility] Kayode Hooper MD [address] [place] [address] [place] [address] JOINT PAIN-L/LEG (Primary Dx) Social History Tobacco Use Types Packs/Day Years Used Date Smoking Tobacco: Never Assessed Comments Unknown Sex and Gender Information Value Date Recorded Sex Assigned at Not on file Legal Sex Female 5:19 AM CHARGE LOADER Gender Identity Not on file Sexual Orientation Not on file documented as of this encounter Plan of Treatment Not on file documented as of this encounter Visit Diagnoses Diagnosis Pain in joint, lower leg- Primary documented in this encounter Care Teams Senior Energy Trader Relationship Specialty Start Date End Date Kayode Hooper MD [address] [place] [address] [place] [address] PCP - General 04/23/00 10/25/20 documented as of this encounter
--- OUTSIDE RECORDS SUMMARY | 2024-11-03 10:07 | XMS_ITS | Encounter Summary ---
Author Organization [facility] Address [address] [place] [address] Care Team Providers Care Billboard Mechanic Name Role Phone Kayode Hooper MD Primary Care Provider [phone] Encounter Details Date Type Department Care Team (Late st Contact Info) Description 07/19/2001 Outpatient Historical [facility] Primary Care - [address] [place] [id number] Kayode Hooper MD [address] [place] [address] Social History Tobacco Use Types Packs/Day Years Used Date Smoking Tobacco: Never Assessed Comments Unknown Sex and Gender Information Value Date Recorded Sex Assigned at Not on file Legal Sex Female 5:19 AM ELECTRICAL AND RADIO MOCK UP MECHANIC Gender Identity Not on file Sexual Orientation Not on file documented as of this encounter Plan of Treatment Not on file documented as of this encounter Visit Diagnoses Not on filedocumented in this encounter Care Teams Billboard Mechanic Relationship Specialty Start Date End Date Kayode Hooper MD [address] [place] [address] PCP - General 04/23/00 10/25/20 documented as of this encounter
--- OUTSIDE RECORDS SUMMARY | 2024-11-03 10:07 | XMS_ITS | Encounter Summary ---
Author Organization [facility] Address [address] [place] [address] Care Team Providers Care Ornamental Brick Installer Name Role Phone Kayode Hooper MD Primary Care Provider [phone] Encounter Details Date Type Department Care Team (Latest Contact Info) Description 12/23/2002 Outpatient Historical [facility] Kayode Badillo MD [address] [place] [address] [place] [address] SCIATICA (Primary Dx) Social History Tobacco Use Types Packs/Day Years Used Date Smoking Tobacco: Never Assessed Comments Unknown Sex and Gender Information Value Date Recorded Sex Assigned at Not on file Legal Sex Female 5:19 AM DRAFTING CLERK Gender Identity Not on file Sexual Orientation Not on file documented as of this encounter Plan of Treatment Not on file documented as of this encounter Visit Diagnoses Diagnosis Sciatica- Primary documented in this encounter Care Teams Ornamental Brick Installer Relationship Specialty Start Date End Date Kayode Hooper MD [address] [place] [address] [place] [address] PCP - General 04/23/00 10/25/20 documented as of this encounter
--- OUTSIDE RECORDS SUMMARY | 2024-11-03 10:07 | XMS_ITS | Referral Summary ---
Author Organization [facility] Address [address] [place] [address] Care Team Providers Care Supervisor Prep Name Role Phone Antony Clinton MD Primary Care Provider [phone] Allergies Active Allergy Reactions Criticality Noted Date [...] (04/15/2022): Added automatically from request for surgery [id number] Personal history of colonic polyps 07/17/2021 Overview (07/17/2021): Added automatically from request for surgery [id number] Encounter for screening colonoscopy 07/17/2021 Overview (07/17/2021): Added automatically from request for surgery [id number] Skin lesion of right arm 01/09/2021 Overview (01/09/2021): Added automatically from request for surgery [id number] Malignant melanoma of skin of chest 01/09/2021 Overview (01/09/2021): Added automatically from request for surgery [id number] Arthralgia of elbow 02/03/2014 Cervical radiculopathy 05/26/2011 [...] PPV23 06/16/2019, Tdap 06/16/2019 ZOSTER Recombinant 08/16/2019,06/15/2019 Social History Tobacco Use Types Packs/Day Years [...] on file Legal Sex Female 12:59 PM COOLER SERVICER Gender Identity Not on file Sexual Orientation Not on file Occupation Industry Job Start Date Job End Date Retired Not on file Not on file Not on file Last Filed Vital Signs Vital Sign Reading Time Taken Comments Blood Pressure 130/88 12/02/2023 10:10 AM CDT Pulse 72 05/12/2023 1:11 PM COOLER SERVICER Temperature 36.8 C (98.2 F) 05/12/2023 1:11 PM COOLER SERVICER Respiratory Rate 20 05/12/2023 1:11 PM COOLER SERVICER Oxygen Saturation 94% 05/12/2023 1:11 PM COOLER SERVICER Inhaled Oxygen Concentration - - Weight 73.5 kg (162 lb) 12/02/2023 10:10 AM CDT Height 157.5 cm (5' 2 ) 12/02/2023 10:10 AM CDT Body Mass Index 29.63 12/02/2023 10:10 AM CDT Plan of Treatment Not on file Procedures Procedure Name Priority Date/Time Associated Diagnosis Comments SCREENING MAMMOGRAM BILATERAL W JEAN Schedule Routine, Read Routine (OP Routine) 12/11/2023 1:44 PM CDT Encounter for screening mammogram for malignant neoplasm of breast COLONOSCOPY 09/13/2021 8:05 AM COOLER SERVICER from Last 3 Months or Most Recently [...] for her next mammogram. Electronically signed by: Nini Ngo M.D. Narrative 12/11/2023 3:57 PM CDT EXAMINATION: SCREENING MAMMOGRAM BILATERAL W JEAN ORDERING HEALTHCARE PROVIDER: ESME HORNE HISTORY: Routine screening mammography. COMPARISON: 12/08/2022, 12/04/2021, [...] has been no suspicious interval change. us Esme Horne DO IMG MAMMO PROCEDURES Fi nal Result * COLONOSCOPY (09/13/2021 8:05 AM COOLER SERVICER) Anatomical Region Laterality Modality Other Narrative Procedure Note Chu Delgado MD - 09/13/2021 8:05 AM CST [facility] Patient Name: Rambo Singh Procedure Date: 09/13/2021 8:05 AM Date of : 1945 Admit Type: Outpatient Age: 76 Gender: Female Attending MD: Chu Delgado M.D. Room: [facility] ENDOSCOPY ROOM 2 Note Status: Finalized [...] scope was passed under direct vision. TheColonoscope [id number] was introduced through the anus and advanced [...] 8:05 AM Procedure Code(s): --- Professional --- 24109, Colonoscopy, flexible; with biopsy, single or multiple Diagnosis Code(s): --- Professional --- D12.0, Benign neoplasm of cecum K64.9, Unspecified hemorrhoids Z86.010, Personal history of colonic polyps CPT copyright 2020 [employer]. All rights reserved. The codes documented in this report are preliminary and upon obstetrics/gynecology nurse reviewmay be revised to meet current compliance requirements. Recognized by the [employer] [employer] for promoting quality in endoscopy Chu Delgado MD ENDOSCOPY PROCEDURES Final Re sult from Last 3 Months or Most Recently Relevant to Health Maintenance Insurance AETNA MEDICARE [facility] MEDICARE [facility] Advance Directives For more information, please contact: [phone] * Full Code (Latest Code Status on File) Date Activated Date Inactivated Comments 08/17/2022 4:04 AM 08/18/2022 4:48 PM * Full Code Date Activated Date Inactivated Comments 04/29/2022 7:19 AM 04/29/2022 12:47 PM * Full Code Date Activated Date Inactivated Comments 09/13/2021 7:26 AM 09/13/2021 1:35 PM * Full Code Date Activated Date Inactivated Comments 09/13/2021 7:26 AM 09/13/2021 7:26 AM Care Teams Supervisor Prep Relationship Specialty Start Date End Date Antony Clinton MD PCP - General 11/04/16
--- OUTSIDE RECORDS SUMMARY | 2024-11-03 10:07 | XMS_ITS | Encounter Summary ---
Author Organization [employer] Address [address] [place] [address] Care Team Providers Care Outreach Consultant Name Role Phone Kayode Hooper MD Primary Care Provider [phone] Encounter Details Date Type Department Care Team (Late st Contact Info) Description 07/29/2001 Outpatient Historical [facility] Kayode Hooper MD [address] [place] [address] POPLITEAL SYNOVIAL CYST (Primary Dx) Social History Tobacco Use Types Packs/Day Years Used Date Smoking Tobacco: Never Assessed Comments Unknown Sex and Gender Information Value Date Recorded Sex Assigned at Not on file Legal Sex Female 5:19 AM LEADERSHIP DEVELOPMENT CONSULTANT Gender Identity Not on file Sexual Orientation Not on file documented as of this encounter Plan of Treatment Not on file documented as of this encounter Visit Diagnoses Diagnosis Synovial cyst of popliteal space- Primary documented in this encounter Care Teams Outreach Consultant Relationship Specialty Start Date End Date Kayode Hooper MD [address] [place] [address] [place] [address] PCP - General 04/23/00 10/25/20 documented as of this encounter
--- OUTSIDE RECORDS SUMMARY | 2024-11-03 10:07 | XMS_ITS | Encounter Summary ---
Author Organization [facility] Address [address] [place] [address] Care Team Providers Care Aerosol Supervisor Name Role Phone Kayode Hooper MD Primary Care Provider +1- [phone] Encounter Details Date Type Department Care Team (Late st Contact Info) Description 01/22/2000 Outpatient Historical [facility] Primary Care - [address] [place] [address] Kayode Hooper MD [address] [place] [address] Social History Tobacco Use Types Packs/Day Years Used Date Smoking Tobacco: Never Assessed Comments Unknown Sex and Gender Information Value Date Recorded Sex Assigned at Not on file Legal Sex Female 5:19 AM DOT COMPLIANCE MANAGER Gender Identity Not on file Sexual Orientation Not on file documented as of this encounter Plan of Treatment Not on file documented as of this encounter Visit Diagnoses Not on filedocumented in this encounter Care Teams Aerosol Supervisor Relationship Specialty Start Date End Date Kayode Hooper MD [address] [place] [address] PCP - General 04/23/00 10/25/20 documented as of this encounter
--- OUTSIDE RECORDS SUMMARY | 2024-11-03 10:07 | XMS_ITS | Encounter Summary ---
Author Organization [facility] Address [address] [place] [address] Care Team Providers Care Xerox Machine Mechanic Name Role Phone Kayode Hooper MD Primary Care Provider Encounter Details Date Type Department Care Team (Late st Contact Info) Description 07/16/2005 Outpatient Historical [facility] Internal Medicine - [place] [address] [place] [address] Kayode Hooper MD [address] [facility] [address] [place] [address] Social History Tobacco Use Types Packs/Day Years Used Date Smoking Tobacco: Never Assessed Comments Unknown Sex and Gender Information Value Date Recorded Sex Assigned at Not on file Legal Sex Female 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 Gender Identity Not on file Sexual Orientation Not on file documented as of this encounter Last Filed Vital Signs Vital Sign Reading Time Taken Comments Blood Pressure 150/80 07/16/2005 10:00 AM HEEL PAINTER Pulse 80 07/16/2005 10:00 AM HEEL PAINTER Temperature - - Respiratory Rate - - Oxygen Saturation - - Inhaled Oxygen Concentration - - Weight 75.8 kg (167 lb) 07/16/2005 10:00 AM HEEL PAINTER Height - - Body Mass Index - - documented in this encounter Plan of Treatment Not on file documented as of this encounter Visit Diagnoses Not on filedocumented in this encounter Care Teams Xerox Machine Mechanic Relationship Specialty Start Date End Date Kayode Hooper MD [address] [place] [address] PCP - General 04/23/00 10/25/20 documented as of this encounter
--- OUTSIDE RECORDS SUMMARY | 2024-11-03 10:07 | XMS_ITS | Encounter Summary ---
Author Organization [facility] Address [address] [place] [address] Care Team Providers Care Sewer And Cutter Finger Buff Material Name Role Phone Kayode Hooper MD Primary Care Provider +1- [phone] Encounter Details Date Type Department Care Team (Late st Contact Info) Description 12/11/2006 Outpatient Historical [facility] Internal Medicine - [place] [address] [place] [phone] Kayode Hooper MD [address] [place] [address] Social History Tobacco Use Types Packs/Day Years Used Date Smoking Tobacco: Never Assessed Comments Unknown Sex and Gender Information Value Date Recorded Sex Assigned at Not on file Legal Sex Female 5:19 AM UNIT MANAGER Gender Identity Not on file Sexual Orientation Not on file documented as of this encounter Plan of Treatment Not on file documented as of this encounter Visit Diagnoses Not on filedocumented in this encounter Care Teams Sewer And Cutter Finger Buff Material Relationship Specialty Start Date End Date Kayode Hooper MD [address] [place] [address] PCP - General 04/23/00 10/25/20 documented as of this encounter
--- OUTSIDE RECORDS SUMMARY | 2024-11-03 10:07 | XMS_ITS | Encounter Summary ---
Author Organization [facility] Address 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
--- OUTSIDE RECORDS SUMMARY | 2024-11-03 10:07 | XMS_ITS | Clinical Summary ---
Author Organization [facility] Address [address] [place] [address] Care Team Providers Care Supervisor Home Energy Consultant Name Role Phone Unavailable Primary Care Provider Unavailabl e Allergies Active Allergy Reactions Criticality Noted Date Comments Albuterol Nausea and Vomiting Low 11/28/2015 Medications esomeprazole (NEXIUM) 40 mg Oral CpDRIndications :Esophageal reflux Take 1 Cap by mouth daily before breakfast. 90 Cap 3 03/16/2009 Active multivitamin (DAILY-JOHNSON) tablet Take 1 Tablet by mouth daily. Active Triamcinolone Acetonide (KENALOG) 0.025 % OintmentIndicat ions:Acute vulvitis APPLY A DIME SIZE AMOUNT TO THE AFFECTED AREA 2 TIMES DAILY 15 Gram 1 06/12/2020 Active NAPROXEN ORAL Take by mouth. Active PARoxetine HCl (PAXIL) 10 mg tabletIndicatio ns:Hot flashes Take 1 Tablet (10 mg) by mouth daily. 90 Tablet 3 11/21/2020 Active Active Problems Problem Noted Date Diagnosed Date Chronic vulvitis 11/21/2020 Rectocele 04/19/2018 Hot flashes 11/28/2015 Elevated BP 11/28/2015 Esophageal reflux 12/11/2006 Resolved Problems Problem Noted Date Diagnosed Date Resolved Date Cervicalgia 07/16/2005 10/17/2008 Sciatica 12/23/2002 10/17/2008 Immunizations Immunization Administration Dates Next Due Hepatitis A Vaccine 07/30/2010,12/25/2009 Family History Medical History Relation Name Comments Other Father blot clot Hypertension Mother Stroke Mother Ovarian Cancer Sister Relation Name Status Comments Father Mother Sister Social History Tobacco Use Types Packs/Day Years Used Date Smoking Tobacco: Never Smokeless Tobacco: Never Tobacco Cessation:Counseling Given: No Alcohol Use Standard Drinks/Week Comments Yes 0 (1 standard drink = 0.6 oz pur e alcohol) Comments No Sex and Gender Information Value Date Recorded Sex Assigned at Not on file Legal Sex Female 5:19 AM COMMODITY MANAGER Gender Identity Not on file Sexual Orientation Not on file Last Filed Vital Signs Vital Sign Reading Time Taken Comments Blood Pressure 158/80 11/21/2020 9:41 AM CDT Pulse 80 07/27/2009 1:24 PM COMMODITY MANAGER Temperature 37.2 C (99 F) 10/17/2008 10:47 AM CDT Respiratory Rate - - Oxygen Saturation - - Inhaled Oxygen Concentration - - Weight 76.2 kg (168 lb) 11/21/2020 9:41 AM CDT Height 160 cm (5' 3 ) 11/21/2020 9:41 AM CDT Body Mass Index 29.76 11/21/2020 9:41 AM CDT Plan of Treatment Health Maintenance Due Date Last Done Comments ZOSTER VACCINE (2 of 2) 08/10/2019 06/15/2019 RSV VACCINE (60+ or ) (1 - 1-dose 75+ series) 2022 INFLUENZA VACCINE (#1) 2024 9, 03/15/2018, 02/15/2017, Additional history exists COVID-19 Vaccine ( - 2023-2 5 season) 2024 08/29/2020, 08/08/2020 OSTEOPOROSIS SCREENING 11/19/2025 11/19/2020 DTAP/TDAP/TD VACCINES (2 - T d or Tdap) 06/16/2029 06/16/2019 FIT/FOBT Q 1 year Discontinued 01/22/2000 COLORECTAL SCREENING Discontinued 07/06/2006 Colorectal Cancer Screening Discontinued PNEUMOCOCCAL VACCINE 50+ YEARS Completed 1 08/17/2018, 01/04/2018, 05/03/2013 FIT-DNA Q 3 years Discontinued Flex Sig/CT Colonography Q 5 years Discontinued Procedures Procedure Name Priority Date/Time Associated Diagnosis Comments XR DEXA BONE DENSITY AXIAL 1 OR MORE SITES Routine 11/19/2020 3:22 PM CDT Screening for osteoporosis Menopause from Last 3 Months or Most Recently Relevant to Health Maintenance Results * XR DEXA BONE DENSITY AXIAL 1 OR MORE SITES (11/19/2020 3:22 PM CDT) Anatomical Region Laterality Modality Digital Radiogra phy 11/19/2020 3:22 PM CDT Impressions 11/19/2020 3:31 PM CDT IMPRESSION: This is a summary page. Please refer to the complete detailed report found in the Imaging Section of the [facility] EMR. Normal bone mineral densities. Lumbar Spine: T-Score: 1.3 Left Femoral Neck: T-Score: -0.9 Left Total Femur: T-Score: 0.3 Right Femoral Neck: T-Score: -0.5 Right Total Femur: T-Score: 0.3 Left Forearm: T-Score: -0.4 Statistical change: No prior exam is available. FRAX FRACTURE RISK ASSESSMENT: (Only valid Between 40-89 Years Of Age) Risk factors: None. 10 Year Probability Of Fracture Major Osteoporotic: 8.9 % Hip: 1.1 % Comparison population: [place], Race: White A major osteoporotic fracture is defined as a fracture of the spine, forearm, hip or shoulder. Definitions: Normal: T-score above -1.0 Osteopenia T-score less than -1.0 and above -2.5 Osteoporosis: T-score <= -2.5 Follow-up Recommendations: Patients without high risk factors for osteoporosis T-score -1.0 to -1.5 - Consider repeat BMD in 5-10 years T-score -1.5 to - 2.0 - Consider repeat BMD in 3-5 years T-score -2.0 to - 2.5 - Consider repeat BMD every 2 years Patients on treatment for osteoporosis 1-2 years after initiation of treatment and every 2 years thereafter D[address] Dr[address] Regino Bach MD DICTATION LOCATION: 11/19/2020 3:31 PM CDT EXAMINATION: BONE DENSITY STUDY (DXA) DATE: 11/19/2020 3:22 PM HISTORY: 75 years Female. Postmenopausal. PROCEDURE: Planar images of the lumbar spine, hip(s) and forearm(s) using a Jigsee DEXA scanner for bone mineral density determination (BMD). FINDINGS: Lumbar Spine (L1-L4): T-Score: 1.3 1.361 g/sq cm Left Femoral Neck: T-Score: -0.9 0.919 g/sq cm Left Total Femur: T-Score: 0.3 Right Femoral Neck: T-Score: -0.5 0.970 g/sq cm Right Total Femur: T-Score: 0.3 Left 33% Radius: T-Score: -0.4 0.841 g/sq cm INCIDENTAL FINDINGS: None. Procedure Note Regino Bach MD - 11/19/2020 EXAMINATION: BONE DENSITY STUDY (DXA) DATE: 11/19/2020 3:22 PM HISTORY: 75 years Female. Postmenopausal. PROCEDURE: Planar images of the lumbar spine, hip(s) and forearm(s) using a Jigsee DEXA scanner for bone mineral density determination (BMD). FINDINGS: Lumbar Spine (L1-L4): T-Score: 1.3 1.361 g/sq cm Left Femoral Neck: T-Score: -0.9 0.919 g/sq cm Left Total Femur: T-Score: 0.3 Right Femoral Neck: T-Score: -0.5 0.970 g/sq cm Right Total Femur: T-Score: 0.3 Left 33% Radius: T-Score: -0.4 0.841 g/sq cm INCIDENTAL FINDINGS: None. IMPRESSION: This is a summary page. Please refer to the complete detailed report found in the Imaging Section of the [facility] EMR. Normal bone mineral densities. Lumbar Spine: T-Score: 1.3 Left Femoral Neck: T-Score: -0.9 Left Total Femur: T-Score: 0.3 Right Femoral Neck: T-Score: -0.5 Right Total Femur: T-Score: 0.3 Left Forearm: T-Score: -0.4 Statistical change: No prior exam is available. FRAX FRACTURE RISK ASSESSMENT: (Only valid Between 40-89 Years Of Age) Risk factors: None. 10 Year Probability Of Fracture Major Osteoporotic: 8.9 % Hip: 1.1 % Comparison population: [place], Race: White A major osteoporotic fracture is defined as a fracture of the spine, forearm, hip or shoulder. Definitions: Normal: T-score above -1.0 Osteopenia T-score less than -1.0 and above -2.5 Osteoporosis: T-score <= -2.5 Follow-up Recommendations: Patients without high risk factors for osteoporosis T-score -1.0 to -1.5 - Consider repeat BMD in 5-10 years T-score -1.5 to - 2.0 - Consider repeat BMD in 3-5 years T-score -2.0 to - 2.5 - Consider repeat BMD every 2 years Patients on treatment for osteoporosis 1-2 years after initiation of treatment and every 2 years thereafter Dictated by Dr. Regino Bach MD DICTATION LOCATION: 1 Ewa Peña MD DIAGNOSTIC IMAGING ORDERABLES Final Result from Last 3 Months or Most Recently Relevant to Health Maintenance Insurance
--- OUTSIDE RECORDS SUMMARY | 2024-11-03 10:07 | XMS_ITS | Encounter Summary ---
Author Organization [facility] Address [address] [place] [address] Care Team Providers Care Postdoctoral Research Fellow Name Role Phone Kayode Hooper MD Primary Care Provider Encounter Details Date Type Department Care Team (Latest Contact Info) Description 12/11/2006 Outpatient Historical [facility] Internal Medicine - [place] [address] [place] [address] Kayode Hooper MD [address] [place] [address] Esophageal Reflux (Primary Dx) Social History Tobacco Use Types Packs/Day Years Used Date Smoking Tobacco: Never Assessed Comments Unknown Sex and Gender Information Value Date Recorded Sex Assigned at Not on file Legal Sex Female 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
--- OUTSIDE RECORDS SUMMARY | 2024-11-03 10:07 | XMS_ITS | Encounter Summary ---
Author Organization [facility] Address [address] [place] [address] Care Team Providers Care Aids Nurse Name Role Phone Kayode Hooper MD Primary Care Provider +1- [phone] Encounter Details Date Type Department Care Team (Late st Contact Info) Description 12/30/2000 Outpatient Historical [facility] Primary Care - [address] [place] [address] Kayode Hooper MD [address] [place] [address] Social History Tobacco Use Types Packs/Day Years Used Date Smoking Tobacco: Never Assessed Comments Unknown Sex and Gender Information Value Date Recorded Sex Assigned at Not on file Legal Sex Female 5:19 AM QA AUTOMATION ENGINEER Gender Identity Not on file Sexual Orientation Not on file documented as of this encounter Plan of Treatment Not on file documented as of this encounter Visit Diagnoses Not on filedocumented in this encounter Care Teams Aids Nurse Relationship Specialty Start Date End Date Kayode Hooper MD [address] [place] [address] PCP - General 04/23/00 10/25/20 documented as of this encounter
--- OUTSIDE RECORDS SUMMARY | 2024-11-03 10:07 | XMS_ITS | Encounter Summary ---
Author Organization [facility] Address [address] [place] [address] Care Team Providers Care Engagement Liaison Name Role Phone Kayode Hooper MD Primary Care Provider Encounter Details Date Type Department Care Team (Late st Contact Info) Description 12/23/2002 Outpatient Historical [facility] Internal Medicine - [place] [address] [place] [address] Kayode Hooper MD [address] [facility] [address] [place] [address] Social History Tobacco Use Types Packs/Day Years Used Date Smoking Tobacco: Never Assessed Comments Unknown Sex and Gender Information Value Date Recorded Sex Assigned at Not on file Legal Sex Female 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 Gender Identity Not on file Sexual Orientation Not on file documented as of this encounter Last Filed Vital Signs Vital Sign Reading Time Taken Comments Blood Pressure 120/74 12/23/2002 1:45 PM CDT Pulse 74 12/23/2002 1:45 PM CDT Temperature - - Respiratory Rate - - Oxygen Saturation - - Inhaled Oxygen Concentration - - Weight 73.9 kg (163 lb) 12/23/2002 1:45 PM CDT Height - - Body Mass Index - - documented in this encounter Plan of Treatment Not on file documented as of this encounter Visit Diagnoses Not on filedocumented in this encounter Care Teams Engagement Liaison Relationship Specialty Start Date End Date Kayode Hooper MD [address] [place] [address] PCP - General 04/23/00 10/25/20 documented as of this encounter
--- OUTSIDE RECORDS SUMMARY | 2024-11-03 10:07 | XMS_ITS | Encounter Summary ---
Author Organization [facility] Address [address] [place] [address] Care Team Providers Care Chief Design Drafter Name Role Phone Kayode Hooper MD Primary Care Provider Encounter Details Date Type Department Care Team (Late st Contact Info) Description 05/21/2007 Orders Only [facility] [place] Internal Medicine - [place] [address] [place] [address] Kayode Hooper MD [address] [facility] [address] [place] [address] Social History Tobacco Use Types Packs/Day Years Used Date Smoking Tobacco: Never Assessed Comments Unknown Sex and Gender Information Value Date Recorded Sex Assigned at Not on file Legal Sex Female 5:19 AM CLUB LICENSEE Gender Identity Not on file Sexual Orientation Not on file documented as of this encounter Progress Notes * Kayode Hooper MD - 11/18/2007 6:31 PM CDT TIME:10:20 am PATIENT`S HOME PHONE: PATIENT`S WORK PHONE: PATIENT`S INSURANCE: [employer] [facility] WHO TOOK THE CALL: Analy Pani[place] R GENERAL INFORMATION PATIENT STATUS: Established Patient. LAST VISIT: 12/11/06 PCP: shiv. ALTERNATIVE PHONE NUMBER: [phone] WHO CALLED: Patient called. CURRENT ALLERGY LIST: [facility] NUMBER: [phone] PROBLEMS: Pt is on her way to [place].. She has had Naprosyn in past. PAIN: Patient complains of neck pain. and shoulder pain. She said that she can not lay on her left side and it is tight and pulling. SECTION 1: REQUESTED ACTION parth 05/21/07 at 10:22 am: MEDICATION REQUEST: Patient wants medications and can not come in. DOCTOR`S RESPONSE: mari 05/21/07 at 01:22 pm MEDICATIONS: Call in to Pharmacy NAPROSYN ORAL TABLET 500 MG, 1 Two Times A Day, As Needed, 60 Dispensed, 3 Fills, status: NEW PRESCRIPTION, 05/21/2007. FINAL ACTION: jethro 05/21/07 at 02:36 pm Spoke with patient 05/21/07 at 02:37 pm. TS Called pharmacy at 05/21/07 at 02:38 pm. TS Electronically Signed by: Genesis Molina on Monday, May 21, 2007 documented in this encounter Plan of Treatment Not on file documented as of this encounter Visit Diagnoses Not on filedocumented in this encounter Care Teams Chief Design Drafter Relationship Specialty Start Date End Date Kayode Hooper MD [address] [facility] [address] [place] [id number] PCP - General 04/23/00 10/25/20 documented as of this encounter
--- OUTSIDE RECORDS SUMMARY | 2024-11-03 10:07 | XMS_ITS | Encounter Summary ---
Author Organization [facility] Address [address] [place] [address] Care Team Providers Care Clinical Support Manager Name Role Phone Kayode Hooper MD Primary Care Provider Encounter Details Date Type Department Care Team (Late st Contact Info) Description 07/16/2007 Orders Only [facility] Internal Medicine - [place] [address] [place] [address] Kayode Hooper MD [address] [facility] [address] [place] [address] Social History Tobacco Use Types Packs/Day Years Used Date Smoking Tobacco: Never Assessed Comments Unknown Sex and Gender Information Value Date Recorded Sex Assigned at Not on file Legal Sex Female 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 TOBACCO USE Patient does not currently use tobacco. MEDICATIONS: Medication list current. CHIEF COMPLAINT Complains of neck pain. 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 No major weight gain or loss. No malaise, chills, fever, diaphoresis.. ENT: No hearing loss, epistaxis, hoarseness or dysphagia. No sinus congestion.. ENDOCRINE: No heat or cold intolerance, no excessive thirst.. CARDIAC: No chest pain, palpitations, orthopnea, dyspnea on exertion, or paroxysmal nocturnal dyspnea.. RESPIRATORY: No dyspnea, cough, hemoptysis or wheezing.. : No frequency, urgency, hematuria or dysuria.. GI: No abdominal pain, nausea, vomiting, diarrhea, constipation, melena, or hematochezia.. NEUROLOGIC: See HISTORY OF PRESENT ILLNESS. MUSCULOSKELETAL: See HISTORY OF PRESENT ILLNESS. PAST MEDICAL HISTORY: MEDICAL: gerd SOCIAL HISTORY: TOBACCO USE: Has no significant smoking history. PHYSICAL EXAMINATION: CONSTITUTIONAL: GENERAL APPEARANCE: Healthy appearing patient in no distress. EYES: CONJUNCTIVAE/LIDS: Conjunctivae and lids appear normal. PUPILS: Pupils equal and normally reactive to light and accommodation. EARS, NOSE, MOUTH AND THROAT: EXTERNAL/EARS AND NOSE: Overall appearance normal with no scars, lesions or masses. EARS: Tympanic membranes shiny without retraction. Canals unremarkable. Hearing grossly normal. NOSE (AND SINUS): No abnormality of the nose or sinuses is noted. ORAL: Inspection of gums, lips, palate, and teeth normal. No scars, lesions, or masses. Oral mucosaunremarkable with non-inflamed posterior pharynx. NECK/THYROID: Trachea midline. No thyroid enlargement, tenderness, or mass. No supraclavicular or cervical adenopathy. RESPIRATORY: Clear to auscultation and percussion. Normal respiratory effort. CARDIOVASCULAR: CARDIAC: Regular rhythm. No murmurs, rubs, or gallops. ARTERIAL: No aortic bruits. EDEMA/VARICOSITIES OF EXTREMITIES: No edema or varicosities. GASTROINTESTINAL: ABDOMEN: Soft, non-tender, without masses. Bowel sounds active. LIVER/SPLEEN/KIDNEY: No hepatosplenomegaly, tenderness or nodularity. Kidneys not palpable. MUSCULOSKELETAL EXAM: SPINE/RIBS/PELVIS: Normal strength and tone, no paraspinal muscle tenderness, no spinous processes tenderness. EXTREMITIES: PE/MS/BILAT UPPER EXT No misalignment or tenderness. Full range of motion. Normal stability, strength and tone. pain in to r cervical . shoulder , neck region ASSESSMENT/PLAN: 723.1-NECK PAIN MEDICATIONS: VALIUM ORAL TABLET 2 MG, 1 to 3 po q hs prn, 60 Dispensed, status: NEW PRESCRIPTION, 07/16/2007. PREDNISONE ORAL TABLET 20 MG, 3 qd x2 days,then 2 qd x 6 days,then 1 qd x2 days, 20 Dispensed, status: NEW PRESCRIPTION, 07/16/2007. SPECIALTY REFERRAL: NEUROSURGERY Dr. Juan Perla ph: [phone] fax: [phone]. PAIN MANAGEMENT Dr. Kaushik Orozco ph: [phone] ph: [phone]. RETURN VISIT : Patient is to return on an as needed basis. Return as planned. Electronically Signed by: Kayode Hooper MD on Monday, July 16, 2007 documented in this encounter Plan of Treatment Not on file documented as of this encounter Visit Diagnoses Not on filedocumented in this encounter Care Teams Clinical Support Manager Relationship Specialty Start Date End Date Kayode Hooper MD [address] [place] [place] [id number] PCP - General 04/23/00 10/25/20 documented as of this encounter
--- OUTSIDE RECORDS SUMMARY | 2024-11-03 10:07 | XMS_ITS | Encounter Summary ---
Author Organization [facility] Address [address] [place] [address] Care Team Providers Care Dip Guider Stoves Name Role Phone Kayode Hooper MD Primary Care Provider [phone] Encounter Details Date Type Department Care Team (Late st Contact Info) Description 07/16/2007 Outpatient Historical [facility] Internal Medicine - [place] [address] [place] [address] Kayode Hooper MD [address] [place] [address] Social History Tobacco Use Types Packs/Day Years Used Date Smoking Tobacco: Never Assessed Comments Unknown Sex and Gender Information Value Date Recorded Sex Assigned at Not on file Legal Sex Female 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 Gender Identity Not on file Sexual Orientation Not on file documented as of this encounter Last Filed Vital Signs Vital Sign Reading Time Taken Comments Blood Pressure 132/86 07/16/2007 3:00 PM HAND SPRING FORMER Pulse 84 07/16/2007 3:00 PM HAND SPRING FORMER Temperature - - Respiratory Rate - - Oxygen Saturation - - Inhaled Oxygen Concentration - - Weight 78 kg (172 lb) 07/16/2007 3:00 PM HAND SPRING FORMER Height - - Body Mass Index - - documented in this encounter Plan of Treatment Not on file documented as of this encounter Visit Diagnoses Not on filedocumented in this encounter Care Teams Dip Guider Stoves Relationship Specialty Start Date End Date Kayode Hooper MD [address] [place] [address] PCP - General 04/23/00 10/25/20 documented as of this encounter
--- OUTSIDE RECORDS SUMMARY | 2024-11-03 10:07 | XMS_ITS | Encounter Summary ---
Author Organization [facility] Address [address] [place] [address] Care Team Providers Care Oral And Maxillofacial Pathologist Name Role Phone Kayode Hooper MD Primary Care Provider [phone] Encounter Details Date Type Department Care Team (Late st Contact Info) Description 12/11/2006 Outpatient Historical [facility] Internal Medicine - [place] [address] [place] [address] Kayode Hopoer MD [address] [place] [address] Social History Tobacco Use Types Packs/Day Years Used Date Smoking Tobacco: Never Assessed Comments Unknown Sex and Gender Information Value Date Recorded Sex Assigned at Not on file Legal Sex Female 5:19 AM VIRTUAL RECRUITER Gender Identity Not on file Sexual Orientation Not on file documented as of this encounter Plan of Treatment Not on file documented as of this encounter Visit Diagnoses Not on filedocumented in this encounter Care Teams Oral And Maxillofacial Pathologist Relationship Specialty Start Date End Date Kayode Hooper MD [address] [place] [address] PCP - General 04/23/00 10/25/20 documented as of this encounter
--- OUTSIDE RECORDS SUMMARY | 2024-11-03 10:07 | XMS_ITS | Encounter Summary ---
Author Organization [facility] Address [address] [place] [address] Care Team Providers Care Underwear Cutter Name Role Phone Kayode Hooper MD Primary Care Provider Encounter Details Date Type Department Care Team (Late st Contact Info) Description 12/11/[address] [facility] Internal Medicine - [place] [address] [place] [address] Kayode Hooper MD [address] [place] [address] Social History Tobacco Use Types Packs/Day Years Used Date Smoking Tobacco: Never Assessed Comments Unknown Sex and Gender Information Value Date Recorded Sex Assigned at Not on file Legal Sex Female 5:19 AM CLOTH HANDLER Gender Identity Not on file Sexual Orientation Not on file documented as of this encounter Progress Notes * Kayode Hooper MD - 11/24/2007 3:04 PM CDT WEIGHT: 165lbs BLOOD PRESSURE: 150/90 Right Arm Sitting PULSE: 80 Right Radial, Regular NURSE NAME: Jacob Cueva G ALLERGIES: No known drug allergies. TOBACCO USE Patient does not currently use tobacco. MEDICATIONS: Medication list current. CHIEF COMPLAINT Seen for a preventive examination. medication refill HISTORY: HISTORY: 530.81-GASTROESOPHAGEAL REFLUX (GERD) The patient's dyspeptic symptoms have improved. The patient denies any significant abdominal pain, nausea, vomiting, indigestion, bloating, or water brash. No complications noted from the medication presently being used. No recent laboratory work done. ROS: GENERAL: Normal activity and energy level, no change in appetite. No major weight gain or loss. No malaise, chills, fever, diaphoresis.. EYES: No vision changes or diplopia. ENT: No hearing loss, epistaxis, hoarseness or dysphagia. No sinus congestion.. ENDOCRINE: No heat or cold intolerance, no excessive thirst.. CARDIAC: No chest pain, palpitations, orthopnea, dyspnea on exertion, or paroxysmal nocturnal dyspnea.. RESPIRATORY: No dyspnea, cough, hemoptysis or wheezing.. : No frequency, urgency, hematuria or dysuria.. GI: No abdominal pain, nausea, vomiting, diarrhea, constipation, melena, or hematochezia.. NEUROLOGIC: No weakness, dizziness, loss of consciousness, transient ischemic symptoms, or seizures. MUSCULOSKELETAL: No muscle or joint pain, weakness, swelling or inflammation. No restriction of motion, no atrophy or backache. PAST MEDICAL HISTORY: MEDICAL: gerd SOCIAL HISTORY: [...] hepatosplenomegaly, tenderness or nodularity. Kidneys not palpable. ASSESSMENT/PLAN: 530.81-GASTROESOPHAGEAL REFLUX (GERD) MEDICATIONS: NEXIUM ORAL CAPSULE DELAYED RELEASE 40 MG, 1 Every Day, 90 Dispensed, 3 Fills, status: NEW PRESCRIPTION, 12/11/2006. LAB ORDERS: Order number: [id number] Test Ordered: CBC W/ DIFFERENTIAL 3150 Order number: [id number] Test Ordered: COMPREHENSIVE METABOLIC PANEL & GFR 1112 Order number: [id number] Test Ordered: LIPID PANEL 1078 HEALTH MAINTENANCE: LAST MAMMOGRAM DATE: 02/08 neg. LAST DATE HORMONE REPLACE DISCUSSED: pos. DISCUSSED SMOKING: neg. LAST TD: unk SEXUAL ACTIVITY DISCUSSED: neg. SUBSTANCE ABUSE DISCUSSED: neg. INJURY PREVENTION DISCUSSED: pos. DIET AND EXERCISE DISCUSSED: pos. ADVANCED DIRECTIVES DISCUSSED: neg. LAST DATE COLONOSCOPY: 07/12 neg. LAST DATE FOBT: neg. LAST BONE DENSITY DATE: 2004 neg. ( perfect) DIABETIC EYE EXAM: neg. DIABETIC FOOT EXAM: neg LAST FLU VACCINE:May 2006 LAST PNEUMOCOCCAL:neg RETURN VISIT : Patient is to return on an as needed basis. Return as planned. Electronically Signed by: Kayode Hooper MD on Monday, December 11, 2006 documented in this encounter Plan of Treatment Not on file documented as of this encounter Visit Diagnoses Not on filedocumented in this encounter Care Teams Underwear Cutter Relationship Specialty Start Date End Date Kayode Hooper MD [address] [place] [address] [place] [address] PCP - General 04/23/00 10/25/20 documented as of this encounter
[2024-11-04 05:15] LABS: Alanine Aminotransferase 20 U/L (14-59); Albumin Level 3.6 g/dL (3.4-5.0); Alkaline Phosphatase 118 U/L (46-116); Anion Gap 8 mmol/L (4-12); Aspartate Amino Transferase 14 U/L (15-37); Bilirubin,Total 0.4 mg/dL (0.00-1.00); Blood Urea Nitrogen 16 mg/dL (7-18); Calcium 9.3 mg/dL (8.5-10.1); Carbon Dioxide 30 mmol/L (21-32); Chloride 107 mmol/L (98-108); Cholesterol 155 mg/dL (0-200); Estimated Glomerular Filt Rate 50; Glucose 86 mg/dL (70-99); HDL Direct 61 mg/dL (40-60); LDL Cholesterol Calculated 76 mg/dL (<130); Osmolality Calculated 300 mOsm/kg (285-295); Potassium 4.8 mmol/L (3.5-5.1); Sodium 145 mmol/L (136-145); Total Protein 6.7 g/dL (6.4-8.2); Triglycerides 89 mg/dL (0-150)
== END 2024-11-03 09:37 | disposition home or self-care (01) ==
LOC: CHSLAB 09:38
PROVIDERS: PCP Internal Medicine; Visit Provider Internal Medicine
DX: I10 Essential (primary) hypertension (principal); E78.5 Hyperlipidemia, unspecified
CPT/HCPCS: 36415; 80053; 80061; 81001; 84443; 85025

== ENCOUNTER 2024-11-07 11:51 | Outpatient (CLI) | payer MEDICARE, SELFPAY ==
[2024-11-07 12:24] LABS: Bilirubin Urine Negative (Negative); Blood Urine 1+ (Negative); Glucose Urine UA Negative (Negative); Ketones Urine Trace (Negative); Leukocyte Esterase Ur 2+ (Negative); Nitrate Urine Negative (Negative); Protein Urine 2+ (Negative); Specific Grav Ur >= 1.030 (1.010-1.020); pH Urine 5.5 (5.0-8.0)
[2024-11-07 12:25] LABS: Add Urine Microscopic? YES; Appearance Urine Turbid (Clear); Color Urine Yellow (Yellow); RBC Urine None seen /hpf (0-2); Squamous Epithelial Cell Urine Few /hpf (Few); WBC Urine >100 /hpf (0-3)
[2024-11-07 12:26] LABS: Bacteria Urine Trace /hpf
--- OUTSIDE RECORDS SUMMARY | 2024-11-07 12:30 | XMS_ITS | Encounter Summary ---
Author Organization [facility] Address [address] [place] [address] Care Team Providers Care Production Packager Name Role Phone Kayode Hooper MD Primary Care Provider Encounter Details Date Type Department Care Team (Late st Contact Info) Description 07/16/2005 Outpatient Historical [facility] Internal Medicine - [place] [address] [place] [address] Kayode Hooper MD [address] [address] [place] [address] Social History Tobacco Use Types Packs/Day Years Used Date Smoking Tobacco: Never Assessed Comments Unknown Sex and Gender Information Value Date Recorded Sex Assigned at Not on file Legal Sex Female 5:19 AM SALES ACCOUNT EXECUTIVE Gender Identity Not on file Sexual Orientation Not on file documented as of this encounter Last Filed Vital Signs Vital Sign Reading Time Taken Comments Blood Pressure 150/80 07/16/2005 10:00 AM SALES ACCOUNT EXECUTIVE Pulse 80 07/16/2005 10:00 AM SALES ACCOUNT EXECUTIVE Temperature - - Respiratory Rate - - Oxygen Saturation - - Inhaled Oxygen Concentration - - Weight 75.8 kg (167 lb) 07/16/2005 10:00 AM SALES ACCOUNT EXECUTIVE Height - - Body Mass Index - - documented in this encounter Plan of Treatment Not on file documented as of this encounter Visit Diagnoses Not on filedocumented in this encounter Care Teams Production Packager Relationship Specialty Start Date End Date Kayode Hooper MD [address] [place] [address] PCP - General 04/23/00 10/25/20 documented as of this encounter
--- OUTSIDE RECORDS SUMMARY | 2024-11-07 12:30 | XMS_ITS | Clinical Summary ---
Author Organization [employer] [facility] Address [address] [place] [address] Care Team Providers Care Resaw Tailer Name Role Phone Unavailable Primary Care Provider [...] on file Legal Sex Female 5:19 AM MANAGER INVENTORY Gender Identity Not on file Sexual Orientation Not on file Last Filed Vital Signs Vital Sign Reading Time Taken Comments Blood Pressure 158/80 11/21/2020 9:41 AM CDT Pulse 80 07/27/2009 1:24 PM MANAGER INVENTORY Temperature 37.2 C (99 F) 10/17/2008 10:47 [...] found in the Imaging Section of the [facility] EMR. Normal bone mineral densities. Lumbar [...] lumbar spine, hip(s) and forearm(s) using a [employer] DEXA scanner for bone mineral density determination [...] lumbar spine, hip(s) and forearm(s) using a [employer]Main DEXA scanner for bone mineral density determination [...] found in the Imaging Section of the [facility] EMR. Normal bone mineral densities. Lumbar [...]
--- OUTSIDE RECORDS SUMMARY | 2024-11-07 12:30 | XMS_ITS | Encounter Summary ---
Author Organization [employer] Address [address] [place] [address] Care Team Providers Care Reproduction Machine Loader Name Role Phone Kayode Hooper MD Primary Care Provider [phone]- [phone] Encounter Details Date Type Department Care Team (Late st Contact Info) Description 07/29/2001 Outpatient Historical [facility] Kayode Hooper MD [address] [place] [address] [place] [address] POPLITEAL SYNOVIAL CYST (Primary Dx) Social History Tobacco Use Types Packs/Day Years Used Date Smoking Tobacco: Never Assessed Comments Unknown Sex and Gender Information Value Date Recorded Sex Assigned at Not on file Legal Sex Female 5:19 AM DROP WIRER Gender Identity Not on file Sexual Orientation Not on file documented as of this encounter Plan of Treatment Not on file documented as of this encounter Visit Diagnoses Diagnosis Synovial cyst of popliteal space- Primary documented in this encounter Care Teams Reproduction Machine Loader Relationship Specialty Start Date End Date Kayode Hooper MD [address] [place] [address] [place] [address] PCP - General 04/23/00 10/25/20 documented as of this encounter
--- OUTSIDE RECORDS SUMMARY | 2024-11-07 12:30 | XMS_ITS | Encounter Summary ---
Author Organization [facility] Address [address] [place] [address] Care Team Providers Care Head Soft Sugar Operator Name Role Phone Kayode Hooper MD Primary Care Provider Encounter Details Date Type Department Care Team (Latest Contact Info) Description 12/11/2006 Outpatient Historical [facility] Internal Medicine - [place] [address] [place] [address] Kayode Hooper MD [address] [place] [address] [place] [address] Esophageal Reflux (Primary Dx) Social History Tobacco Use Types Packs/Day Years Used Date Smoking Tobacco: Never Assessed Comments Unknown Sex and Gender Information Value Date Recorded Sex Assigned at Not on file Legal Sex Female 5:19 AM SIGNALS COLLECTION TECHNICIAN Gender Identity Not on file Sexual Orientation Not on file documented as of this encounter Plan of Treatment Not on file documented as of this encounter Visit Diagnoses Diagnosis Esophageal reflux- Primary documented in this encounter Care Teams Head Soft Sugar Operator Relationship Specialty Start Date End Date Kayode Hooper MD [address] [place] [address] [place] [address] PCP - General 04/23/00 10/25/20 documented as of this encounter
--- OUTSIDE RECORDS SUMMARY | 2024-11-07 12:30 | XMS_ITS | Encounter Summary ---
Author Organization [facility] Address [address] [place] [address] Care Team Providers Care Pharmaceutical Assistant Name Role Phone Kayode Hooper MD Primary Care Provider [phone]- [phone] Encounter Details Date Type Department Care Team (Late st Contact Info) Description 07/19/2001 Outpatient Historical [facility] Primary Care - [address] [place] [address] Kayode Hooper MD [address] [place] [address] Social History Tobacco Use Types Packs/Day Years Used Date Smoking Tobacco: Never Assessed Comments Unknown Sex and Gender Information Value Date Recorded Sex Assigned at Not on file Legal Sex Female 5:19 AM SAP BUSINESS OBJECTS CONSULTANT Gender Identity Not on file Sexual Orientation Not on file documented as of this encounter Plan of Treatment Not on file documented as of this encounter Visit Diagnoses Not on filedocumented in this encounter Care Teams Pharmaceutical Assistant Relationship Specialty Start Date End Date Kayode Hooper MD [address] [place] [address] PCP - General 04/23/00 10/25/20 documented as of this encounter
--- OUTSIDE RECORDS SUMMARY | 2024-11-07 12:30 | XMS_ITS | Encounter Summary ---
Author Organization [facility] Address [address] [place] [address] Care Team Providers Care Social Sciences Professor Name Role Phone Kayode Hooper MD Primary Care Provider [phone]- [phone] Encounter Details Date Type Department Care Team (Latest Contact Info) Description 12/23/2002 Outpatient Historical [facility] Kayode Badillo MD [address] [place] [address] SCIATICA (Primary Dx) Social History Tobacco Use Types Packs/Day Years Used Date Smoking Tobacco: Never Assessed Comments Unknown Sex and Gender Information Value Date Recorded Sex Assigned at Not on file Legal Sex Female 5:19 AM INTERIOR DESIGN PROFESSIONAL Gender Identity Not on file Sexual Orientation Not on file documented as of this encounter Plan of Treatment Not on file documented as of this encounter Visit Diagnoses Diagnosis Sciatica- Primary documented in this encounter Care Teams Social Sciences Professor Relationship Specialty Start Date End Date Kayode Hooper MD [address] [place] [address] PCP - General 04/23/00 10/25/20 documented as of this encounter
--- OUTSIDE RECORDS SUMMARY | 2024-11-07 12:30 | XMS_ITS | Encounter Summary ---
Author Organization [facility] Address [address] [place] [address] Care Team Providers Care Land Conservation Specialist Name Role Phone Kayode Hooper MD Primary Care Provider [phone]- [phone] Encounter Details Date Type Department Care Team (Latest Contact Info) Description 07/16/[address]patient [address] [facility] Kayode Badillo MD [address] [place] [address] CERVICAL SPONDYLOSIS (Primary Dx) Social History Tobacco Use Types Packs/Day Years Used Date Smoking Tobacco: Never Assessed Comments Unknown Sex and Gender Information Value Date Recorded Sex Assigned at Not on file Legal Sex Female 5:19 AM PROMOTION MANAGER Gender Identity Not on file Sexual Orientation Not on file documented as of this encounter Plan of Treatment Not on file documented as of this encounter Visit Diagnoses Diagnosis Cervical spondylosis without myelopathy- Primary documented in this encounter Care Teams Land Conservation Specialist Relationship Specialty Start Date End Date Kayode Hooper MD [address] [place] [address] PCP - General 04/23/00 10/25/20 documented as of this encounter
--- OUTSIDE RECORDS SUMMARY | 2024-11-07 12:30 | XMS_ITS | Encounter Summary ---
Author Organization [employer] Address [address] [place] [address] Care Team Providers Care Men'S Furnishings Salesperson Name Role Phone Kayode Hooper MD Primary Care Provider Encounter Details Date Type Department Care Team (Late st Contact Info) Description 04/23/2000 Outpatient Historical [facility] Willi Ross MD [address] [id number] Other symptoms involving digestive system(787.99) (Primary Dx) Social History Tobacco Use Types Packs/Day Years Used Date Smoking Tobacco: Never Assessed Comments Unknown Sex and Gender Information Value Date Recorded Sex Assigned at Not on file Legal Sex Female 5:19 AM FREIGHT CAR CLEANER Gender Identity Not on file Sexual Orientation Not on file documented as of this encounter Plan of Treatment Not on file documented as of this encounter Visit Diagnoses Diagnosis Other symptoms involving digestive system(787.99)- Primary Other symptoms involving digestive system documented in this encounter Care Teams Men'S Furnishings Salesperson Relationship Specialty Start Date End Date Kayode Hooper MD [address] [place] [address] PCP - General 04/23/00 10/25/20 documented as of this encounter
--- OUTSIDE RECORDS SUMMARY | 2024-11-07 12:30 | XMS_ITS | Encounter Summary ---
Author Organization [facility] Address [address] [place] [address] Care Team Providers Care Electrode Turner And Finisher Name Role Phone Kayode Hooper MD Primary Care Provider Encounter Details Date Type Department Care Team (Late st Contact Info) Description 12/11/2006 Orders Only [facility] Internal Medicine - [place] [address] [place] [address] Kayode Hooper MD [address] [facility] [address] [place] [address] Social History Tobacco Use Types Packs/Day Years Used Date Smoking Tobacco: Never Assessed Comments Unknown Sex and Gender Information Value Date Recorded Sex Assigned at Not on file Legal Sex Female 5:19 AM LONGWALL MACHINE OPERATOR HELPER Gender Identity Not on file Sexual Orientation [...] NEW PRESCRIPTION, 12/11/2006. LAB ORDERS: Order number: [id number] Test Ordered: CBC W/ DIFFERENTIAL 3150 Order number: [id number] Test Ordered: COMPREHENSIVE METABOLIC PANEL & GFR 1112 Order number: [id number] Test Ordered: LIPID PANEL 1078 HEALTH MAINTENANCE: [...] on filedocumented in this encounter Care Teams Electrode Turner And Finisher Relationship Specialty Start Date End Date Kayode Hooper MD [address] [place] [address] [place] [address] PCP - General 04/23/00 10/25/20 documented as of this encounter
--- OUTSIDE RECORDS SUMMARY | 2024-11-07 12:30 | XMS_ITS | Encounter Summary ---
Author Organization [facility] Address [address] [place] [address] Care Team Providers Care Inspector Toys Name Role Phone Kayode Hooper MD Primary Care Provider Encounter Details Date Type Department Care Team (Late st Contact Info) Description 12/23/2002 Outpatient Historical [facility] Internal Medicine - [place] [address] [place] [address] Kayode Hooper MD [address] [address] [place] [address] Social History Tobacco Use Types Packs/Day Years Used Date Smoking Tobacco: Never Assessed Comments Unknown Sex and Gender Information Value Date Recorded Sex Assigned at Not on file Legal Sex Female 5:19 AM MULTIMEDIA SERVICES MANAGER Gender Identity Not on file Sexual [...] on filedocumented in this encounter Care Teams Inspector Toys Relationship Specialty Start Date End Date Kayode Hooper MD [address] [place] [address] PCP - General 04/23/00 10/25/20 documented as of this encounter
--- OUTSIDE RECORDS SUMMARY | 2024-11-07 12:30 | XMS_ITS | Encounter Summary ---
Author Organization [facility] Address [address] [place] [address] Care Team Providers Care Ink Printer Name Role Phone Kayode Hooper MD Primary Care Provider [phone]- [phone] Encounter Details Date Type Department Care Team (Late st Contact Info) Description 12/11/2006 Outpatient Historical [facility] Internal Medicine - [place] [address] [place] [address] Kayode Hooper MD [address] [place] [address] [place] [address] Social History Tobacco Use Types Packs/Day Years Used Date Smoking Tobacco: Never Assessed Comments Unknown Sex and Gender Information Value Date Recorded Sex Assigned at Not on file Legal Sex Female 5:19 AM LOGISTICS SERVICE REPRESENTATIVE Gender Identity Not on file Sexual Orientation Not on file documented as of this encounter Plan of Treatment Not on file documented as of this encounter Visit Diagnoses Not on filedocumented in this encounter Care Teams Ink Printer Relationship Specialty Start Date End Date Kayode Hooper MD [address] [place] [address] PCP - General 04/23/00 10/25/20 documented as of this encounter
--- OUTSIDE RECORDS SUMMARY | 2024-11-07 12:30 | XMS_ITS | Encounter Summary ---
Author Organization [facility] Address [address] [place] [address] Care Team Providers Care Electrical Controls Assembler Name Role Phone Kayode Hooper MD Primary Care Provider [phone]- [phone] Encounter Details Date Type Department Care Team (Late st Contact Info) Description 12/11/2006 Outpatient Historical [facility] Internal Medicine - [place] [address] [place] [address] Kayode Hooper MD [address] [place] [address] Social History Tobacco Use Types Packs/Day Years Used Date Smoking Tobacco: Never Assessed Comments Unknown Sex and Gender Information Value Date Recorded Sex Assigned at Not on file Legal Sex Female 5:19 AM DELIVERY NURSE Gender Identity Not on file Sexual Orientation Not on file documented as of this encounter Plan of Treatment Not on file documented as of this encounter Visit Diagnoses Not on filedocumented in this encounter Care Teams Electrical Controls Assembler Relationship Specialty Start Date End Date Kayode Hooper MD [address] [place] [address] PCP - General 04/23/00 10/25/20 documented as of this encounter
--- OUTSIDE RECORDS SUMMARY | 2024-11-07 12:30 | XMS_ITS | Encounter Summary ---
Author Organization [employer] Address [address] [place] [address] Care Team Providers Care Ui Ux Web Developer Name Role Phone Kayode Hooper MD Primary Care Provider [phone]- [phone] Encounter Details Date Type Department Care Team (Latest Contact Info) Description 07/19/2001 Outpatient Historical [facility] Kayode Hooper MD [address] [place] [address] [place] [address] JOINT PAIN-L/LEG (Primary Dx) Social History Tobacco Use Types Packs/Day Years Used Date Smoking Tobacco: Never Assessed Comments Unknown Sex and Gender Information Value Date Recorded Sex Assigned at Not on file Legal Sex Female 5:19 AM GARMENT MANUFACTURER Gender Identity Not on file Sexual Orientation Not on file documented as of this encounter Plan of Treatment Not on file documented as of this encounter Visit Diagnoses Diagnosis Pain in joint, lower leg- Primary documented in this encounter Care Teams Ui Ux Web Developer Relationship Specialty Start Date End Date Kayode Hooper MD [address] [place] [address] [place] [address] PCP - General 04/23/00 10/25/20 documented as of this encounter
--- OUTSIDE RECORDS SUMMARY | 2024-11-07 12:30 | XMS_ITS | Encounter Summary ---
Author Organization [facility] Address [address] [place] [address] Care Team Providers Care Welding Machine Operator Ultrasonic Name Role Phone Kayode Hooper MD Primary Care Provider Encounter Details Date Type Department Care Team (Late st Contact Info) Description 07/16/[address] [facility] Internal Medicine - [place] [address] [place] [address] Kayode Hooper MD [address] [facility] [address] [place] [address] Social History Tobacco Use Types Packs/Day Years Used Date Smoking Tobacco: Never Assessed Comments Unknown Sex and Gender Information Value Date Recorded Sex Assigned at Not on file Legal Sex Female 5:19 AM ASSISTANT DISTRIBUTION MANAGER Gender Identity Not on file Sexual Orientation Not on file documented as of this encounter Last Filed Vital Signs Vital Sign Reading Time Taken Comments Blood Pressure 132/86 07/16/2007 3:00 PM ASSISTANT DISTRIBUTION MANAGER Pulse 84 07/16/2007 3:00 PM ASSISTANT DISTRIBUTION MANAGER Temperature - - Respiratory Rate - - Oxygen Saturation - - Inhaled Oxygen Concentration - - Weight 78 kg (172 lb) 07/16/2007 3:00 PM ASSISTANT DISTRIBUTION MANAGER Height - - Body Mass Index - - documented in this encounter Plan of Treatment Not on file documented as of this encounter Visit Diagnoses Not on filedocumented in this encounter Care Teams Welding Machine Operator Ultrasonic Relationship Specialty Start Date End Date Kayode Hooper MD [address] [place] [address] PCP - General 04/23/00 10/25/20 documented as of this encounter
--- OUTSIDE RECORDS SUMMARY | 2024-11-07 12:30 | XMS_ITS | Encounter Summary ---
Author Organization [facility] Address [address] [place] [address] Care Team Providers Care Emergency Vehicle Operations Instructor Name Role Phone Kayode Hooper MD Primary Care Provider [phone] Encounter Details Date Type Department Care Team (Late st Contact Info) Description 01/22/2000 Outpatient Historical [facility] Primary Care - [address] [place] [address] Kayode Hooper MD [address] [place] [address] Social History Tobacco Use Types Packs/Day Years Used Date Smoking Tobacco: Never Assessed Comments Unknown Sex and Gender Information Value Date Recorded Sex Assigned at Not on file Legal Sex Female 5:19 AM MEDIA SERVICES DIRECTOR Gender Identity Not on file Sexual Orientation Not on file documented as of this encounter Plan of Treatment Not on file documented as of this encounter Visit Diagnoses Not on filedocumented in this encounter Care Teams Emergency Vehicle Operations Instructor Relationship Specialty Start Date End Date Kayode Hooper MD [address] [place] [address] PCP - General 04/23/00 10/25/20 documented as of this encounter
--- OUTSIDE RECORDS SUMMARY | 2024-11-07 12:30 | XMS_ITS | Encounter Summary ---
Author Organization [facility] Address [address] [place] [address] Care Team Providers Care Computer Processing Scheduler Name Role Phone Kayode Hooper MD Primary Care Provider Encounter Details Date Type Department Care Team (Late st Contact Info) Description 05/21/2007 Orders Only [facility] Internal Medicine - [place] [address] [place] [address] Kayode Hooper MD [address] [facility] [address] [place] [address] Social History Tobacco Use Types Packs/Day Years Used Date Smoking Tobacco: Never Assessed Comments Unknown Sex and Gender Information Value Date Recorded Sex Assigned at Not on file Legal Sex Female 5:19 AM PROGRAM CONTROL ANALYST Gender Identity Not on file Sexual Orientation Not on file documented as of this encounter Progress Notes * Kayode Hooper MD - 11/18/2007 6:31 PM CDT TIME:10:20 am PATIENT`S HOME PHONE: PATIENT`S WORK PHONE: PATIENT`S INSURANCE: [facility] WHO TOOK THE CALL: Analy [place] R GENERAL INFORMATION PATIENT STATUS: Established Patient. LAST VISIT: 12/11/06 PCP: shiv. ALTERNATIVE PHONE NUMBER: [phone] WHO CALLED: Patient called. CURRENT ALLERGY LIST: [facility] NUMBER: [phone] PROBLEMS: Pt is on her way to [place].. She has had Naprosyn in past. PAIN: [...] on filedocumented in this encounter Care Teams Computer Processing Scheduler Relationship Specialty Start Date End Date Kayode Hooper MD [address] [facility] [address] [place] [id number] PCP - General 04/23/00 10/25/20 documented as of this encounter
--- OUTSIDE RECORDS SUMMARY | 2024-11-07 12:30 | XMS_ITS | Referral Summary ---
Author Organization [facility] Address [address] [place] [address] Care Team Providers Care Wind Energy Mechanic Name Role Phone Antony Clinton MD Primary Care Provider [phone] Allergies Active Allergy Reactions Criticality Noted Date [...] (04/15/2022): Added automatically from request for surgery [id number] Personal history of colonic polyps 07/17/2021 Overview (07/17/2021): Added automatically from request for surgery [id number] Encounter for screening colonoscopy 07/17/2021 Overview (07/17/2021): Added automatically from request for surgery [id number] Skin lesion of right arm 01/09/2021 Overview (01/09/2021): Added automatically from request for surgery [id number] Malignant melanoma of skin of chest 01/09/2021 Overview (01/09/2021): Added automatically from request for surgery [id number] Arthralgia of elbow 02/03/2014 Cervical radiculopathy 05/26/2011 [...] on file Legal Sex Female 12:59 PM BRICK SORTER Gender Identity Not on file Sexual Orientation Not on file Occupation Industry Job Start Date Job End Date Retired Not on file Not on file Not on file Last Filed Vital Signs Vital Sign Reading Time Taken Comments Blood Pressure 130/88 12/02/2023 10:10 AM CDT Pulse 72 05/12/2023 1:11 PM BRICK SORTER Temperature 36.8 C (98.2 F) 05/12/2023 1:11 PM BRICK SORTER Respiratory Rate 20 05/12/2023 1:11 PM BRICK SORTER Oxygen Saturation 94% 05/12/2023 1:11 PM BRICK SORTER Inhaled Oxygen Concentration - - Weight 73.5 [...] neoplasm of breast COLONOSCOPY 09/13/2021 8:05 AM BRICK SORTER from Last 3 Months or Most Recently [...] nal Result * COLONOSCOPY (09/13/2021 8:05 AM BRICK SORTER) Anatomical Region Laterality Modality Other Narrative Procedure Note Chu Delgado MD - 09/13/2021 8:05 AM CST [facility] Patient Name: Rambo Singh Procedure Date: 09/13/2021 8:05 AM Date of : 1945 Admit Type: Outpatient Age: 76 Gender: Female Attending MD: Chu Delgado M.D. Room: [facility] ENDOSCOPY ROOM 2 Note Status: Finalized Patient [...] scope was passed under direct vision. TheColonoscope [id number] was introduced through the anus and advanced [...] 8:05 AM Procedure Code(s): --- Professional --- 23293, Colonoscopy, flexible; with biopsy, single or multiple Diagnosis Code(s): --- Professional --- D12.0, Benign neoplasm of cecum K64.9, Unspecified hemorrhoids Z86.010, Personal history of colonic polyps CPT copyright 2020 [employer]. All rights reserved. The codes documented in this report are preliminary and upon test automation architect reviewmay be revised to meet current compliance requirements. Recognized by the [employer] for promoting quality in endoscopy Chu Delgado MD ENDOSCOPY PROCEDURES Final Re sult from Last 3 Months or Most Recently Relevant to Health Maintenance Insurance AETNA MEDICARE [facility] MEDICARE [facility] MEDICARE Advance Directives For more information, please contact: [phone] * Full Code (Latest Code Status on File) Date Activated Date Inactivated Comments 08/17/2022 4:04 AM 08/18/2022 4:48 PM * Full Code Date Activated Date Inactivated Comments 04/29/2022 7:19 AM 04/29/2022 12:47 PM * Full Code Date Activated Date Inactivated Comments 09/13/2021 7:26 AM 09/13/2021 1:35 PM * Full Code Date Activated Date Inactivated Comments 09/13/2021 7:26 AM 09/13/2021 7:26 AM Care Teams Wind Energy Mechanic Relationship Specialty Start Date End Date Antony Clinton MD PCP - General 11/04/16
--- OUTSIDE RECORDS SUMMARY | 2024-11-07 12:30 | XMS_ITS | Clinical Summary ---
Author Organization [facility] Address [address] [place] [address] Care Team Providers Care Finishing Machine Operator Name Role Phone Antony Clinton MD Primary Care Provider [phone] Allergies Active Allergy Reactions Criticality Noted Date [...] (04/15/2022): Added automatically from request for surgery [id number] Personal history of colonic polyps 07/17/2021 Overview (07/17/2021): Added automatically from request for surgery [id number] Encounter for screening colonoscopy 07/17/2021 Overview (07/17/2021): Added automatically from request for surgery [id number] Skin lesion of right arm 01/09/2021 Overview (01/09/2021): Added automatically from request for surgery [id number] Malignant melanoma of skin of chest 01/09/2021 Overview (01/09/2021): Added automatically from request for surgery [id number] Arthralgia of elbow 02/03/2014 Cervical radiculopathy 05/26/2011 [...] Knee Surgery - (Added by TW Conv) AK TOTAL ABDOMINAL HYSTERECT W/WO RMVL TUBE OVARY [...] on file Legal Sex Female 12:59 PM BANANA CARRIER Gender Identity Not on file Sexual Orientation [...] AM CDT Pulse 72 05/12/2023 1:11 PM BANANA CARRIER Temperature 36.8 C (98.2 F) 05/12/2023 1:11 PM BANANA CARRIER Respiratory Rate 20 05/12/2023 1:11 PM BANANA CARRIER Oxygen Saturation 94% 05/12/2023 1:11 PM BANANA CARRIER Inhaled Oxygen Concentration - - Weight 73.5 [...] neoplasm of breast COLONOSCOPY 09/13/2021 8:05 AM BANANA CARRIER from Last 3 Months or Most Recently [...] nal Result * COLONOSCOPY (09/13/2021 8:05 AM BANANA CARRIER) Anatomical Region Laterality Modality Other Narrative Procedure Note Chu Delgado MD - 09/13/2021 8:05 AM CST [facility] Patient Name: Rambo Singh Procedure Date: 09/13/2021 8:05 AM Date of : 1945 Admit Type: Outpatient Age: 76 Gender: Female Attending MD: Chu Delgado M.D. Room: [facility] ENDOSCOPY ROOM 2 Note Status: Finalized Patient [...] scope was passed under direct vision. TheColonoscope [id number] was introduced through the anus and advanced [...] 8:05 AM Procedure Code(s): --- Professional --- 65499, Colonoscopy, flexible; with biopsy, single or multiple Diagnosis Code(s): --- Professional --- D12.0, Benign neoplasm of cecum K64.9, Unspecified hemorrhoids Z86.010, Personal history of colonic polyps CPT copyright 2020 [employer]. All rights reserved. The codes documented in this report are preliminary and upon medical record coder reviewmay be revised to meet current compliance requirements. Recognized by the [employer] for promoting quality in endoscopy Chu Delgado MD ENDOSCOPY PROCEDURES Final Re sult from Last 3 Months or Most Recently Relevant to Health Maintenance Insurance AETNA MEDICARE AETNA MEDICARE AETNA MEDICARE Advance Directives For more information, please contact: [phone] * Full Code (Latest Code Status on File) Date Activated Date Inactivated Comments 08/17/2022 4:04 AM 08/18/2022 4:48 PM * Full Code Date Activated Date Inactivated Comments 04/29/2022 7:19 AM 04/29/2022 12:47 PM * Full Code Date Activated Date Inactivated Comments 09/13/2021 7:26 AM 09/13/2021 1:35 PM * Full Code Date Activated Date Inactivated Comments 09/13/2021 7:26 AM 09/13/2021 7:26 AM Care Teams Finishing Machine Operator Relationship Specialty Start Date End Date Antony Clinton MD PCP - General 11/04/16
--- OUTSIDE RECORDS SUMMARY | 2024-11-07 12:30 | XMS_ITS | Encounter Summary ---
Author Organization [facility] Address [address] [place] [address] Care Team Providers Care Casting Supervisor Name Role Phone Kayode Hooper MD Primary Care Provider Encounter Details Date Type Department Care Team (Late st Contact Info) Description 07/16/2007 Orders Only [facility] Internal Medicine - [place] [address] [place] [address] Kayode Hooper MD [address] [facility] [address] [place] [address] Social History Tobacco Use Types Packs/Day Years Used Date Smoking Tobacco: Never Assessed Comments Unknown Sex and Gender Information Value Date Recorded Sex Assigned at Not on file Legal Sex Female 5:19 AM RADIO MECHANIC Gender Identity Not on file Sexual [...] SPECIALTY REFERRAL: NEUROSURGERY Dr. Juan Perla ph: [phone] fax: [phone]. PAIN MANAGEMENT Dr. Kaushik Orozco ph: [phone] ph: [phone]. RETURN VISIT : Patient is to return on an as needed basis. Return as planned. Electronically Signed by: Kayode Hooper MD on Monday, July 16, 2007 documented in this encounter Plan of Treatment Not on file documented as of this encounter Visit Diagnoses Not on filedocumented in this encounter Care Teams Casting Supervisor Relationship Specialty Start Date End Date Kayode Hooper MD [address] [place] [address] [place] [address] PCP - General 04/23/00 10/25/20 documented as of this encounter
--- OUTSIDE RECORDS SUMMARY | 2024-11-07 12:30 | XMS_ITS | Encounter Summary ---
Author Organization [facility] Address [address] [place] [address] Care Team Providers Care Pt Skilled Name Role Phone Kayode Hooper MD Primary Care Provider [phone] Encounter Details Date Type Department Care Team (Late st Contact Info) Description 12/30/2000 Outpatient Historical [facility] Primary Care - [address] [place] [address] Kayode Hooper MD [address] [place] [address] Social History Tobacco Use Types Packs/Day Years Used Date Smoking Tobacco: Never Assessed Comments Unknown Sex and Gender Information Value Date Recorded Sex Assigned at Not on file Legal Sex Female 5:19 AM ENTRY TECH Gender Identity Not on file Sexual Orientation Not on file documented as of this encounter Plan of Treatment Not on file documented as of this encounter Visit Diagnoses Not on filedocumented in this encounter Care Teams Pt Skilled Relationship Specialty Start Date End Date Kayode Hooper MD [address] [place] [address] PCP - General 04/23/00 10/25/20 documented as of this encounter
== END 2024-11-07 11:52 | disposition home or self-care (01) ==
LOC: CHSLAB 11:52
PROVIDERS: PCP Internal Medicine; Visit Provider Internal Medicine
DX: N39.0 Urinary tract infection, site not specified (principal)
CPT/HCPCS: 81001; 87077; 87086; 87088; 87186

== ENCOUNTER 2025-03-16 09:59 | Outpatient (CLI) | payer MEDICARE, SELFPAY ==
--- NOTE | ~2025-03-16 | XR_ITS ---
EXAMINATION: XR foot RT min 3V, 03/16/2025 10:20 CDT HISTORY: FOOT PAIN IN BOTH FEET COMPARISON: No comparisons available. Findings: Postsurgical changes noted in the fifth digit and the first metatarsal, the hardware is intact with healing fractures. Moderate degenerative changes of the first metatarsal phalangeal joint. Large calcaneal spur. Moderate Achilles enthesopathy Soft tissues unremarkable. Impression: No acute fracture or malalignment. Reviewed, dictated and finalized at location A. Impression: No acute fracture or malalignment.
--- NOTE | ~2025-03-16 | XR_ITS ---
EXAMINATION: XR foot LT min 3V, 03/16/2025 10:20 CDT HISTORY: FOOT PAIN IN BOTH FEET COMPARISON: No comparisons available. Findings: Postsurgical changes in the second and first digits with fixation of the first metatarsal head, the hardware is intact. Moderate degenerative changes of the first metatarsal phalangeal joint. Small calcaneal spur. Moderate Achilles enthesopathy. Soft tissues unremarkable. Impression: No acute fracture or malalignment. Reviewed, dictated and finalized at location A. Impression: No acute fracture or malalignment.
--- OUTSIDE RECORDS SUMMARY | 2025-03-16 11:09 | XMS_ITS | Encounter Summary ---
Author Organization [facility] Address [address] [place] [address] Care Team Providers Care Insurance Follow Up Specialist Name Role Phone Kayode Hooper MD Primary Care Provider Encounter Details Date Type Department Care Team (Late st Contact Info) Description 04/23/2000 Outpatient Historical [facility] Willi Ross MD [address] [facility] [place] [id number] Other symptoms involving digestive system(787.99) (Primary Dx) Social History Tobacco Use Types Packs/Day Years Used Date Smoking Tobacco: Never Assessed Comments Unknown Sex and Gender Information Value Date Recorded Sex Assigned at Not on file Legal Sex Female 5:19 AM PEN RULER OPERATOR Gender Identity Not on file Sexual Orientation Not on file documented as of this encounter Plan of Treatment Not on file documented as of this encounter Visit Diagnoses Diagnosis Other symptoms involving digestive system(787.99)- Primary Other symptoms involving digestive system documented in this encounter Care Teams Insurance Follow Up Specialist Relationship Specialty Start Date End Date Kayode Hooper MD [address] [place] [address] PCP - General 04/23/00 10/25/20 documented as of this encounter
--- OUTSIDE RECORDS SUMMARY | 2025-03-16 11:09 | XMS_ITS | Encounter Summary ---
Author Organization [facility] Address [address] [place] [address] Care Team Providers Care Automatic Driller And Reamer Name Role Phone Kayode Hooper MD Primary Care Provider [phone] Encounter Details Date Type Department Care Team (Late st Contact Info) Description 12/11/2006 Outpatient Historical [facility] Internal Medicine - [place] [address] [place] [address] Kayode Hooper MD [address] [place] [address] Social History Tobacco Use Types Packs/Day Years Used Date Smoking Tobacco: Never Assessed Comments Unknown Sex and Gender Information Value Date Recorded Sex Assigned at Not on file Legal Sex Female 5:19 AM DECK AND HULL ASSEMBLER Gender Identity Not on file Sexual Orientation Not on file documented as of this encounter Plan of Treatment Not on file documented as of this encounter Visit Diagnoses Not on filedocumented in this encounter Care Teams Automatic Driller And Reamer Relationship Specialty Start Date End Date Kayode Hooper MD [address] [place] [address] PCP - General 04/23/00 10/25/20 documented as of this encounter
--- OUTSIDE RECORDS SUMMARY | 2025-03-16 11:09 | XMS_ITS | Encounter Summary ---
Author Organization [facility] Address [address] [place] [address] Care Team Providers Care Administrative Aide Name Role Phone Kayode Hooper MD Primary Care Provider [phone]- [phone] Encounter Details Date Type Department Care Team (Latest Contact Info) Description 12/23/2002 Outpatient Historical [facility] Kayode Badillo MD [address] [place] [address] [place] [address] SCIATICA (Primary Dx) Social History Tobacco Use Types Packs/Day Years Used Date Smoking Tobacco: Never Assessed Comments Unknown Sex and Gender Information Value Date Recorded Sex Assigned at Not on file Legal Sex Female 5:19 AM DOG WALKER Gender Identity Not on file Sexual Orientation Not on file documented as of this encounter Plan of Treatment Not on file documented as of this encounter Visit Diagnoses Diagnosis Sciatica- Primary documented in this encounter Care Teams Administrative Aide Relationship Specialty Start Date End Date Kayode Hooper MD [address] [place] [address] [place] [address] PCP - General 04/23/00 10/25/20 documented as of this encounter
--- OUTSIDE RECORDS SUMMARY | 2025-03-16 11:09 | XMS_ITS | Encounter Summary ---
Author Organization [facility] Address [address] [place] [address] Care Team Providers Care Flavorings Compounder Name Role Phone Kayode Hooper MD Primary Care Provider Encounter Details Date Type Department Care Team (Late st Contact Info) Description 07/16/2007 Outpatient Historical [facility] Internal Medicine - [place] [address] [place] [address] Kayode Hooper MD [address] [facility] [address] [place] [address] Social History Tobacco Use Types Packs/Day Years Used Date Smoking Tobacco: Never Assessed Comments Unknown Sex and Gender Information Value Date Recorded Sex Assigned at Not on file Legal Sex Female 5:19 AM HUMAN SERVICES WORKER Gender Identity Not on file Sexual Orientation Not on file documented as of this encounter Last Filed Vital Signs Vital Sign Reading Time Taken Comments Blood Pressure 132/86 07/16/2007 3:00 PM HUMAN SERVICES WORKER Pulse 84 07/16/2007 3:00 PM HUMAN SERVICES WORKER Temperature - - Respiratory Rate - - Oxygen Saturation - - Inhaled Oxygen Concentration - - Weight 78 kg (172 lb) 07/16/2007 3:00 PM HUMAN SERVICES WORKER Height - - Body Mass Index - - documented in this encounter Plan of Treatment Not on file documented as of this encounter Visit Diagnoses Not on filedocumented in this encounter Care Teams Flavorings Compounder Relationship Specialty Start Date End Date Kayode Hooper MD [address] [place] [address] PCP - General 04/23/00 10/25/20 documented as of this encounter
--- OUTSIDE RECORDS SUMMARY | 2025-03-16 11:09 | XMS_ITS | Encounter Summary ---
Author Organization [facility] Address [address] [place] [address] Care Team Providers Care Nuclear Test Technician Name Role Phone Kayode Hooper MD Primary Care Provider Encounter Details Date Type Department Care Team (Late st Contact Info) Description 12/11/2006 Orders Only [facility] Internal Medicine - [place] [address] [place] [address] Kayode Hooper MD [address] [facility] [address] [place] [address] Social History Tobacco Use Types Packs/Day Years Used Date Smoking Tobacco: Never Assessed Comments Unknown Sex and Gender Information Value Date Recorded Sex Assigned at Not on file Legal Sex Female 5:19 AM BOTTOM LOADER Gender Identity Not on file Sexual [...] NEW PRESCRIPTION, 12/11/2006. LAB ORDERS: Order number: [id number] Test Ordered: CBC W/ DIFFERENTIAL 3150 Order number: [id number] Test Ordered: COMPREHENSIVE METABOLIC PANEL & GFR 1112 Order number: [id number] Test Ordered: LIPID PANEL 1078 HEALTH MAINTENANCE: [...] on filedocumented in this encounter Care Teams Nuclear Test Technician Relationship Specialty Start Date End Date Kayode Hooper MD [address] [place] [address] PCP - General 04/23/00 10/25/20 documented as of this encounter
--- OUTSIDE RECORDS SUMMARY | 2025-03-16 11:09 | XMS_ITS | Encounter Summary ---
Author Organization [facility] Address [address] [place] [address] Care Team Providers Care Ship Liner Name Role Phone Kayode Hooper MD Primary Care Provider [phone] Encounter Details Date Type Department Care Team (Late st Contact Info) Description 07/19/2001 Outpatient Historical [facility] Primary Care - [address] [place] [address] Kayode Hooper MD [address] [place] [address] Social History Tobacco Use Types Packs/Day Years Used Date Smoking Tobacco: Never Assessed Comments Unknown Sex and Gender Information Value Date Recorded Sex Assigned at Not on file Legal Sex Female 5:19 AM HEARING AID CONSULTANT Gender Identity Not on file Sexual Orientation Not on file documented as of this encounter Plan of Treatment Not on file documented as of this encounter Visit Diagnoses Not on filedocumented in this encounter Care Teams Ship Liner Relationship Specialty Start Date End Date Kayode Hooper MD [address] [place] [address] PCP - General 04/23/00 10/25/20 documented as of this encounter
--- OUTSIDE RECORDS SUMMARY | 2025-03-16 11:09 | XMS_ITS | Encounter Summary ---
Author Organization [facility] Address [address] [place] [address] Care Team Providers Care Marketing Information Manager Name Role Phone Kaoyde Hooper MD Primary Care Provider [phone] Encounter Details Date Type Department Care Team (Late st Contact Info) Description 01/22/2000 Outpatient Historical [facility] Primary Care - [address] [place] [address] Kayode Hooper MD [address] [place] [address] Social History Tobacco Use Types Packs/Day Years Used Date Smoking Tobacco: Never Assessed Comments Unknown Sex and Gender Information Value Date Recorded Sex Assigned at Not on file Legal Sex Female 5:19 AM GUARD DRIVER Gender Identity Not on file Sexual Orientation Not on file documented as of this encounter Plan of Treatment Not on file documented as of this encounter Visit Diagnoses Not on filedocumented in this encounter Care Teams Marketing Information Manager Relationship Specialty Start Date End Date Kayode Hooper MD [address] [place] [address] PCP - General 04/23/00 10/25/20 documented as of this encounter
--- OUTSIDE RECORDS SUMMARY | 2025-03-16 11:09 | XMS_ITS | Clinical Summary ---
Author Organization [facility] Address [address] [place] [address] Care Team Providers Care Information Technology Auditor Name Role Phone Unavailable Primary Care Provider [...] on file Legal Sex Female 5:19 AM JOB HONER Gender Identity Not on file Sexual Orientation Not on file Last Filed Vital Signs Vital Sign Reading Time Taken Comments Blood Pressure 158/80 11/21/2020 9:41 AM CDT Pulse 80 07/27/2009 1:24 PM JOB HONER Temperature 37.2 C (99 F) 10/17/2008 10:47 AM CDT Respiratory Rate - - Oxygen Saturation - - Inhaled Oxygen Concentration - - Weight 76.2 kg (168 lb) 11/21/2020 9:41 AM CDT Height 160 cm (5' 3) 11/21/2020 9:41 AM CDT Body Mass Index 29.76 11/21/2020 9:41 AM CDT Plan of Treatment Health Maintenance Due Date Last Done Comments ZOSTER VACCINE (2 of 2) 08/10/2019 06/15/2019 RSV VACCINE (60+ or ) (1 - 1-dose 75+ series) 2022 INFLUENZA VACCINE (#1) 2025 9, 03/15/2018, 02/15/2017, Additional history exists COVID-19 Vaccine (3 - 2024-2 6 season) 2025 08/29/2020, 08/08/2020 OSTEOPOROSIS SCREENING 11/19/2025 11/19/2020 DTAP/TDAP/TD [...] found in the Imaging Section of the [facility] EMR. Normal bone mineral densities. Lumbar [...] lumbar spine, hip(s) and forearm(s) using a Is That Odd DEXA scanner for bone mineral density determination [...] lumbar spine, hip(s) and forearm(s) using a Is That Odd DEXA scanner for bone mineral density determination [...] found in the Imaging Section of the [facility] EMR. Normal bone mineral densities. Lumbar [...]
--- OUTSIDE RECORDS SUMMARY | 2025-03-16 11:09 | XMS_ITS | Encounter Summary ---
Author Organization [facility] Address [address] [place] [address] Care Team Providers Care Medical Officer Name Role Phone Kayode Hooper MD Primary Care Provider [phone] Encounter Details Date Type Department Care Team (Late st Contact Info) Description 12/11/2006 Outpatient Historical [facility] Internal Medicine - [place] [address] [place] [phone] Kayode Hooper MD [address] [place] [address] Social History Tobacco Use Types Packs/Day Years Used Date Smoking Tobacco: Never Assessed Comments Unknown Sex and Gender Information Value Date Recorded Sex Assigned at Not on file Legal Sex Female 5:19 AM ORACLE BPM DEVELOPER Gender Identity Not on file Sexual Orientation Not on file documented as of this encounter Plan of Treatment Not on file documented as of this encounter Visit Diagnoses Not on filedocumented in this encounter Care Teams Medical Officer Relationship Specialty Start Date End Date Kayode Hooper MD [address] [place] [address] PCP - General 04/23/00 10/25/20 documented as of this encounter
--- OUTSIDE RECORDS SUMMARY | 2025-03-16 11:09 | XMS_ITS | Encounter Summary ---
Author Organization [facility] Address [address] [place] [address] Care Team Providers Care Handkerchief Presser Name Role Phone Kayode Hooper MD Primary Care Provider [phone]- [phone] Encounter Details Date Type Department Care Team (Latest Contact Info) Description 07/16/2005 Outpatient Historical [facility] Kayode Badillo MD [address] [place] [address] CERVICAL SPONDYLOSIS (Primary Dx) Social History Tobacco Use Types Packs/Day Years Used Date Smoking Tobacco: Never Assessed Comments Unknown Sex and Gender Information Value Date Recorded Sex Assigned at Not on file Legal Sex Female 5:19 AM MORPHOLOGIST Gender Identity Not on file Sexual Orientation Not on file documented as of this encounter Plan of Treatment Not on file documented as of this encounter Visit Diagnoses Diagnosis 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
--- OUTSIDE RECORDS SUMMARY | 2025-03-16 11:09 | XMS_ITS | Encounter Summary ---
Author Organization [facility] Address [address] [place] [address] Care Team Providers Care Furniture Assembly Supervisor Name Role Phone Kayode Hooper MD Primary Care Provider [phone]- [phone] Encounter Details Date Type Department Care Team (Late st Contact Info) Description 12/30/2000 Outpatient Historical [facility] Primary Care - [address] [place] [address] Kayode Hooper MD [address] [place] [address] Social History Tobacco Use Types Packs/Day Years Used Date Smoking Tobacco: Never Assessed Comments Unknown Sex and Gender Information Value Date Recorded Sex Assigned at Not on file Legal Sex Female 5: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
--- OUTSIDE RECORDS SUMMARY | 2025-03-16 11:09 | XMS_ITS | Encounter Summary ---
Author Organization [facility] Address [address] [place] [address] Care Team Providers Care Slat Basket Maker Machine Name Role Phone Kayode Hooper MD Primary Care Provider [phone] Encounter Details Date Type Department Care Team (Late st Contact Info) Description 12/23/2002 Outpatient Historical [facility] Internal Medicine - [place] [address] [place] [address] Kayode Hooper MD [address] [place] [address] Social History Tobacco Use Types Packs/Day Years Used Date Smoking Tobacco: Never Assessed Comments Unknown Sex and Gender Information Value Date Recorded Sex Assigned at Not on file Legal Sex Female 5:19 AM BUSINESS STRATEGY MANAGER Gender Identity Not on file Sexual [...] on filedocumented in this encounter Care Teams Slat Basket Maker Machine Relationship Specialty Start Date End Date Kayode Hooper MD [address] [place] [address] [place] [address] PCP - General 04/23/00 10/25/20 documented as of this encounter
--- OUTSIDE RECORDS SUMMARY | 2025-03-16 11:09 | XMS_ITS | Encounter Summary ---
Author Organization [facility] Address [address] [place] [address] Care Team Providers Care Injection Moulding Machine Operator Name Role Phone Kayode Hooper MD Primary Care Provider Encounter Details Date Type Department Care Team (Late st Contact Info) Description 05/21/[address] [facility] Internal Medicine - [place] [address] [place] [address] Kayode Hooper MD [address] [place] [address] Social History Tobacco Use Types Packs/Day Years Used Date Smoking Tobacco: Never Assessed Comments Unknown Sex and Gender Information Value Date Recorded Sex Assigned at Not on file Legal Sex Female 5:19 AM BALLISTIC EXPERT Gender Identity Not on file Sexual Orientation Not on file documented as of this encounter Progress Notes * Kayode Hooper MD - 11/18/2007 6:31 PM CDT TIME:10:20 am PATIENT`S HOME PHONE: PATIENT`S WORK PHONE: PATIENT`S INSURANCE: [facility] WHO TOOK THE CALL: Analy P[place] R GENERAL INFORMATION PATIENT STATUS: Established Patient. LAST VISIT: 12/11/06 PCP: shiv. ALTERNATIVE PHONE NUMBER: [phone] WHO CALLED: Patient called. CURRENT ALLERGY LIST: [facility] NUMBER: [phone] PROBLEMS: Pt is on her way to [place].. She has had Naprosyn in past. PAIN: [...] on filedocumented in this encounter Care Teams Injection Moulding Machine Operator Relationship Specialty Start Date End Date Kayode Hooper MD [address] [place] [address] PCP - General 04/23/00 10/25/20 documented as of this encounter
--- OUTSIDE RECORDS SUMMARY | 2025-03-16 11:09 | XMS_ITS | Encounter Summary ---
Author Organization [facility] Address [address] [place] [address] Care Team Providers Care Plate Glass Installer Helper Name Role Phone Kayode Hooper MD Primary Care Provider Encounter Details Date Type Department Care Team (Late st Contact Info) Description 07/16/2005 Outpatient Historical [facility] Internal Medicine - [place] [address] [place] [address] Kayode Hooper MD [address] [facility] [address] [place] [address] Social History Tobacco Use Types Packs/Day Years Used Date Smoking Tobacco: Never Assessed Comments Unknown Sex and Gender Information Value Date Recorded Sex Assigned at Not on file Legal Sex Female 5:19 AM GRAIN BROKER Gender Identity Not on file Sexual Orientation Not on file documented as of this encounter Last Filed Vital Signs Vital Sign Reading Time Taken Comments Blood Pressure 150/80 07/16/2005 10:00 AM GRAIN BROKER Pulse 80 07/16/2005 10:00 AM GRAIN BROKER Temperature - - Respiratory Rate - - Oxygen Saturation - - Inhaled Oxygen Concentration - - Weight 75.8 kg (167 lb) 07/16/2005 10:00 AM GRAIN BROKER Height - - Body Mass Index - - documented in this encounter Plan of Treatment Not on file documented as of this encounter Visit Diagnoses Not on filedocumented in this encounter Care Teams Plate Glass Installer Helper Relationship Specialty Start Date End Date Kayode Hooper MD [address] [place] [address] [place] [address] PCP - General 04/23/00 10/25/20 documented as of this encounter
--- OUTSIDE RECORDS SUMMARY | 2025-03-16 11:09 | XMS_ITS | Encounter Summary ---
Author Organization [employer] Address [address] [place] [address] Care Team Providers Care Back Joiner Name Role Phone Kayode Hooper MD Primary Care Provider [phone]- [phone] Encounter Details Date Type Department Care Team (Latest Contact Info) Description 07/19/2001 Outpatient Historical [facility] Kayode Hooper MD [address] [place] [place] [address] JOINT PAIN-L/LEG (Primary Dx) Social History Tobacco Use Types Packs/Day Years Used Date Smoking Tobacco: Never Assessed Comments Unknown Sex and Gender Information Value Date Recorded Sex Assigned at Not on file Legal Sex Female 5:19 AM TERRAZZO POLISHER HELPER Gender Identity Not on file Sexual Orientation Not on file documented as of this encounter Plan of Treatment Not on file documented as of this encounter Visit Diagnoses Diagnosis Pain in joint, lower leg- Primary documented in this encounter Care Teams Back Joiner Relationship Specialty Start Date End Date Kayode Hooper MD [address] [place] [place] [address] PCP - General 04/23/00 10/25/20 documented as of this encounter
--- OUTSIDE RECORDS SUMMARY | 2025-03-16 11:09 | XMS_ITS | Encounter Summary ---
Author Organization [facility] Address [address] [place] [address] Care Team Providers Care Client Service Supervisor Name Role Phone Kayode Hooper MD Primary Care Provider Encounter Details Date Type Department Care Team (Latest Contact Info) Description 12/11/2006 Outpatient Historical [facility] Internal Medicine - [place] [address] [place] [address] Kayode Hooper MD [address] [place] [address] Esophageal Reflux (Primary Dx) Social History Tobacco Use Types Packs/Day Years Used Date Smoking Tobacco: Never Assessed Comments Unknown Sex and Gender Information Value Date Recorded Sex Assigned at Not on file Legal Sex Female 5:19 AM SENIOR COMMUNICATIONS SPECIALIST Gender Identity Not on file Sexual Orientation Not on file documented as of this encounter Plan of Treatment Not on file documented as of this encounter Visit Diagnoses Diagnosis Esophageal reflux- Primary documented in this encounter Care Teams Client Service Supervisor Relationship Specialty Start Date End Date Kayode Hooper MD [address] [place] [address] PCP - General 04/23/00 10/25/20 documented as of this encounter
--- OUTSIDE RECORDS SUMMARY | 2025-03-16 11:09 | XMS_ITS | Encounter Summary ---
Author Organization [employer] Address [address] [place] [address] Care Team Providers Care Cook Tortilla Name Role Phone Kayode Hooper MD Primary Care Provider [phone]- [phone] Encounter Details Date Type Department Care Team (Late st Contact Info) Description 07/29/2001 Outpatient Historical [facility] Kayode Hooper MD [address] [place] [address] POPLITEAL SYNOVIAL CYST (Primary Dx) Social History Tobacco Use Types Packs/Day Years Used Date Smoking Tobacco: Never Assessed Comments Unknown Sex and Gender Information Value Date Recorded Sex Assigned at Not on file Legal Sex Female 5:19 AM GED TUTOR Gender Identity Not on file Sexual Orientation Not on file documented as of this encounter Plan of Treatment Not on file documented as of this encounter Visit Diagnoses Diagnosis Synovial cyst of popliteal space- Primary documented in this encounter Care Teams Cook Tortilla Relationship Specialty Start Date End Date Kayode Hooper MD [address] [place] [place] [address] PCP - General 04/23/00 10/25/20 documented as of this encounter
--- OUTSIDE RECORDS SUMMARY | 2025-03-16 11:09 | XMS_ITS | Clinical Summary ---
Author Organization [facility] Address [address] [place] [address] Care Team Providers Care Journeyman Level Acoustic Analyst Name Role Phone Antoyn Clinton MD Primary Care Provider [phone] Allergies Active Allergy Reactions Criticality Noted Date Comments Albuterol Nausea And Vomiting Low 11/15/2014 Medications multivitamin tablet Take 1 tablet by mouth daily Active ascorbic acid (VITAMIN C) 500 mg tablet,chewable 1,000 mg Acti ve cholecalciferol (VITAMIN D-3) 400 unit capsule Active vitamin E (AQUASOL E) 400 unit capsule Take 1 capsule (400 Units total) by mouth Active calcium citrate 250 mg calcium tablet tablet Active zinc 50 mg tablet Take by mouth Active atorvastatin (LIPITOR) 40 mg tablet Take 1 tablet (40 mg total) by mouth nightly 30 tablet 2 08/17/2022 Active famotidine (PEPCID) 40 mg tablet Take 1 tablet (40 mg total) by mouth daily 30 tablet 3 08/18/2022 Active aspirin 325 mg enteric coated tablet Take 1 tablet (325 mg total) by mouth daily for 89 doses 30 tablet 2 08/19/[address] (NexIUM) 40 mg capsule 10/01/2022 Active venlafaxine XR (EFFEXOR-XR) 150 mg 24 hr capsule 10/17/2022 Active amLODIPine (NORVASC) 10 mg tablet Take 1 tablet (10 mg total) by mouth nightly 11/01/2024 Active Active Problems Problem Noted Date Diagnosed Date Essential hypertension 11/10/2023 Basilar artery stenosis 05/12/2023 Vertigo 08/17/2022 Gastroesophageal reflux disease 04/15/2022 Assessment & Plan (04/15/2022 1:47 PM CDT): egd possible dil Dysphagia 04/15/2022 Overview (04/15/2022): Added automatically from request for surgery [id number] Personal history of colonic polyps 07/17/2021 Overview (07/17/2021): Added automatically from request for surgery [id number] Encounter for screening colonoscopy 07/17/2021 Overview (07/17/2021): Added automatically from request for surgery [id number] Skin lesion of right arm 01/09/2021 Overview (01/09/2021): Added automatically from request for surgery [id number] Malignant melanoma of skin of chest 01/09/2021 Overview (01/09/2021): Added automatically from request for surgery [id number] Arthralgia of elbow 02/03/2014 Cervical radiculopathy 05/26/2011 Spinal stenosis of cervical region 05/26/2011 Plantar fasciitis 09/17/2010 Valgus deformity of great toe 09/17/2010 Bunion 09/13/2010 Hammer toe 09/13/2010 Encounters Date Type Department Care Team Description 03/02/2025 Telephone [facility] [address] [place] [address] Radha Calderon MA 12/14/2024 11:00 AM CDT Ancillary Procedure [facility] [address] [place] [address] Screening mammogram for breast cancer from Last 3 Months Immunizations Immunization Administration Dates Next Due Hep [...] Knee Surgery - (Added by TW Conv) [place] TOTAL ABDOMINAL HYSTERECT W/WO RMVL TUBE OVARY [...] cancer Sister 1 Cancer Sister 2 Ria [place] Hypertension Sister 2 Rai [place] Relation Name Status Comments Mother Jannet Vesoar [...] on file Legal Sex Female 12:59 PM LANDSCAPE ARCHITECTURE PROFESSOR Gender Identity Not on file Sexual Orientation Not on file Occupation Industry Job Start Date Job End Date Retired Not on file Not on file Not on file Obstetrics History Para Term AB IAB SAB Ectopic Multiple Livin g Live Births 3 3 3 3 3 Date Outcome GA Total Labor Labor/2nd/3rd Weight Sex Type Anes PTL Analilia A1 A5 Name Clin 1964 Term 40w 0d 3.345 kg (7 lb 6 oz) F Vag-S pont General N Living Complications:None 1967 Term 40w 0d 2.92 kg (6 lb 7 oz) F Vag-S pont General N Living Complications:None 1970 Term 40w 0d 3.884 kg (8 lb 9 oz) M Vag-S pont General N Living Complications:None Last Filed Vital Signs Vital Sign Reading Time Taken Comments Blood Pressure 130/88 12/02/2023 10:10 AM CDT Pulse 72 05/12/2023 1:11 PM LANDSCAPE ARCHITECTURE PROFESSOR Temperature 36.8 C (98.2 F) 05/12/2023 1:11 PM LANDSCAPE ARCHITECTURE PROFESSOR Respiratory Rate 20 05/12/2023 1:11 PM LANDSCAPE ARCHITECTURE PROFESSOR Oxygen Saturation 94% 05/12/2023 1:11 PM LANDSCAPE ARCHITECTURE PROFESSOR Inhaled Oxygen Concentration - - Weight 73.5 kg (162 lb 0.6 oz) 12/14/2024 11:06 AM CDT Height 157.5 cm (5' 2) 12/14/2024 11:06 AM CDT Body Mass Index 29.64 12/14/2024 11:06 AM CDT Plan of Treatment Health Maintenance Due Date Last Done Comments Hepatitis C Screening 1945 Hepatitis B Screening 1963 Osteoporosis Screening-Bone Density Scan 11/19/2022 11/19/2020, 11/19/2020 Depression Screening 08/16/2023 08/16/2022, 08/16/19 23 Fall Risk Assessment 08/18/2023 08/18/2022 Well Visit 65+ 12/01/2024 12/02/2023, 11/04, 11/25/2021 Covid-19 Vaccine (6 - 2024-2 6 season) 2025 03/27/2022, 10/30/2021, 04/06/2021, Additional history exists Influenza Vaccine (#1) 2025 , 02/19/2021, 03/29/2020, Additional history exists DTaP/Tdap/Td Vaccine [...] Cancer Screening Discontinued Breast Cancer Screening-Mammogram Discontinued 12/14/2024, 12/11/2023, 12/08/2022, Additional history exists Procedures Procedure Name Priority Date/Time Associated Diagnosis Comments SCREENING MAMMOGRAM BILATERAL W JEAN Schedule Routine, Read Routine (OP Routine) 12/14/2024 11:03 AM CDT Screening mammogram for breast cancer COLONOSCOPY 09/13/2021 8:05 AM LANDSCAPE ARCHITECTURE PROFESSOR from Last 3 Months or Most Recently Relevant to Health Maintenance Results * Screening Mammogram Bilateral W Jean (12/14/2024 11:03 AM CDT) Anatomical Region Laterality Modality Breast Bilateral Mammography Impressions 12/14/2024 9:44 PM CDT Bilateral No evidence of malignancy in either breast. OVERALL BI-RADS FINAL ASSESSMENT: 1 - Negative RECOMMENDATION: Recommend bilateral annual screening mammography. Narrative 12/14/2024 9:44 PM CDT EXAMINATION: Screening Mammogram Bilateral W Jean: 12/14/2024 COMPARISON: Relevant prior studies available at the time of interpretation were reviewed. TECHNIQUE: Mammography was performed with 2D and digital breast tomosynthesis (DBT) images. CAD was utilized. BREAST PARENCHYMAL COMPOSITION: There are scattered areas of fibroglandular density. FINDINGS: Bilateral There is no suspicious mass, calcification, or architectural distortion in either breast. us Esme Marcy Ojedauer DO IMG MAMMO PROCEDURES Fi nal Result * COLONOSCOPY (09/13/2021 8:05 AM LANDSCAPE ARCHITECTURE PROFESSOR) Anatomical Region Laterality Modality Other Narrative Procedure Note Chu Delgado MD - 09/13/2021 8:05 AM CST [facility] Patient Name: Rambo Singh Procedure Date: 09/13/2021 8:05 AM Date of : 1945 Admit Type: Outpatient Age: 76 Gender: Female Attending MD: Chu Delgado M.D. Room: [facility] ENDOSCOPY ROOM 2 Note Status: Finalized Patient Profile: Refer to note in patient chart for documentation of history and physical. Procedure: Colonoscopy Indications: High risk colon cancer surveillance: Personalhistory of colonic polyps, Last colonoscopy: November 2016 Referring MD: Antony Clinton M.D. Providers: Chu R. Sandy, M.D. Impression: - Hemorrhoids found on perianal [...] scope was passed under direct vision. TheColonoscope [id number] was introduced through the anus and advanced [...] 8:05 AM Procedure Code(s): --- Professional --- 30704, Colonoscopy, flexible; with biopsy, single or multiple Diagnosis Code(s): --- Professional --- D12.0, Benign neoplasm of cecum K64.9, Unspecified hemorrhoids Z86.010, Personal history of colonic polyps CPT copyright 2020 [employer]. All rights reserved. The codes documented in this report are preliminary and upon analytics specialist reviewmay be revised to meet current compliance requirements. Recognized by the [employer] for promoting quality in endoscopy Chu Delgado MD ENDOSCOPY PROCEDURES Final Re sult from Last 3 Months or Most Recently Relevant to Health Maintenance Insurance [facility] MEDICARE [facility] MEDICARE [employer] MEDICARE Advance Directives For more information, please contact: [phone] * Full Code (Latest Code Status on File) Date Activated Date Inactivated Comments 08/17/2022 4:04 AM 08/18/2022 4:48 PM * Full Code Date Activated Date Inactivated Comments 04/29/2022 7:19 AM 04/29/2022 12:47 PM * Full Code Date Activated Date Inactivated Comments 09/13/2021 7:26 AM 09/13/2021 1:35 PM * Full Code Date Activated Date Inactivated Comments 09/13/2021 7:26 AM 09/13/2021 7:26 AM Care Teams Journeyman Level Acoustic Analyst Relationship Specialty Start Date End Date Antony Clinton MD PCP - General 11/04/16
--- OUTSIDE RECORDS SUMMARY | 2025-03-16 11:10 | XMS_ITS | Encounter Summary ---
Author Organization [facility] Address [address] [place] [address] Care Team Providers Care Supervisor Bindery Name Role Phone Kayode Hooper MD Primary Care Provider Encounter Details Date Type Department Care Team (Late st Contact Info) Description 07/16/2007 Orders Only [facility] Internal Medicine - [place] [address] [place] [address] Kayode Hooper MD [address] [place] [address] Social History Tobacco Use Types Packs/Day Years Used Date Smoking Tobacco: Never Assessed Comments Unknown Sex and Gender Information Value Date Recorded Sex Assigned at Not on file Legal Sex Female 5:19 AM INNOVATION MANAGER Gender Identity Not on file Sexual [...] SPECIALTY REFERRAL: NEUROSURGERY Dr. Juan Perla ph: [phone] fax: [phone]. PAIN MANAGEMENT Dr. Kaushik Orozco ph: [phone] ph: [phone]. RETURN VISIT : Patient is to return on an as needed basis. Return as planned. Electronically Signed by: Kayode Hooper MD on Monday, July 16, 2007 documented in this encounter Plan of Treatment Not on file documented as of this encounter Visit Diagnoses Not on filedocumented in this encounter Care Teams Supervisor Bindery Relationship Specialty Start Date End Date Kayode Hooper MD [address] [place] [id number] PCP - General 04/23/00 10/25/20 documented as of this encounter
== END 2025-03-16 10:00 | disposition home or self-care (01) ==
PROVIDERS: PCP Internal Medicine; Visit Provider Internal Medicine
DX: M79.672 Pain in left foot (principal); M79.671 Pain in right foot
CPT/HCPCS: 73630